=== PATIENT | female | born 1995 | race African-American/Black ===

== ENCOUNTER 2016-05-29 03:35 | Inpatient (IN) | payer MEDICAID ==
[2016-05-29] MEDS ORDERED: RINGERS SOLUTION,LACTATED 1,000 ML IV PRN ×2 (03:47→04:48)
[2016-05-29 04:04] LABS: APPEARANCE,URINE SLIGHTLY-CLOUDY; BILIRUBIN,URINE NEGATIVE (NEGATIVE); GLUCOSE, URINE NEGATIVE (NEGATIVE); KETONES,URINE NEGATIVE (NEGATIVE); LEUKOCYTE ESTERASE,URINE NEGATIVE (NEGATIVE); NITRITE,URINE NEGATIVE (NEGATIVE); PROTEIN,URINE NEGATIVE (NEGATIVE); URINE SPECIFIC GRAVITY 1.017
[2016-05-29 04:19] LABS: URINE BARBITURATES SCREEN NEGATIVE; URINE METHADONE SCREEN NEGATIVE; URINE PHENCYCLIDINE SCREEN NEGATIVE
[2016-05-29 04:28] LABS: ABSOLUTE EOSINOPHILS # (AUTO) 0.1 10^3/uL (0.0-0.6); ABSOLUTE LYMPHOCYTES (AUTO) 1.5 10^3/uL (0.5-4.7); ABSOLUTE MONOCYTES (AUTO) 0.8 10^3/uL (0.1-1.4); BASOPHILS % (AUTO) 0.5 % (0-2); EOSINOPHILS % (AUTO) 1.1 % (0-6); HEMATOCRIT 30.2 % (36.0-47.0); HEMOGLOBIN 10.2 g/dL (12.0-15.5); HGB HCT DIFFERENCE 0.4; LYMPHOCYTES % (AUTO) 17.6 % (13-45); MEAN CORPUSCULAR HEMOGLOBIN 27.2 pg (27.0-33.4); MEAN CORPUSCULAR HGB CONC 33.8 g/dL (32.0-36.0); MEAN CORPUSCULAR VOLUME 81 fl (80-97); MONOCYTES % (AUTO) 9.2 % (3-13); RED BLOOD COUNT 3.75 10^6/uL (3.72-5.28); RED CELL DISTRIBUTION WIDTH 14.8 % (11.5-14.0); SEGMENTED NEUTROPHILS % (AUTO) 71.6 % (42-78); WHITE BLOOD COUNT 8.4 10^3/uL (4.0-10.5)
--- NOTE | 2016-05-29 04:45 | L&D Flow Sheet ---
LD Flowsheet Datetime Report Generated by CPN: 05/29/2016 04:45 Datetime: 05/29/2016 04:15 Patient Care Procedures: Labs Drawn (Jenni Kossmann, RN) Datetime: 05/29/2016 04:10 Patient Care Procedures: Consents Signed (Jenni Kossmann, RN) Datetime: 05/29/2016 04:02 Pain Pain Scale: 4 (Yue Ring, RN) Pain Presence: Intermittent (Yue Ring, RN) Pain Type: Contraction (Yue Ring, RN) Pain Location: Abdomen (Yue Ring, RN) Pain Goal: 1 (Yue Ring, RN) Pain Relief Measures: Comfort Measures (Yue Ring, RN) Pain Coping: Talking Through Contractions; Breathing Through Contractions (Yue Ring, RN) Membrane Status: Ruptured (Yue Ring, RN) Membranes Ruptured Date/Time: 05/29/2016 03:15 (Yue Ring, RN) Membranes Rupture Method: Spontaneous (Yue Ring, RN) Amniotic Fluid Color: Clear (Yue Ring, RN) Amniotic Fluid Amount: Moderate (Yue Ring, RN) Vaginal Bleeding: None (Yue Ring, RN) Maternal Assessment Level of Consciousness: Fully Conscious (Yue Ring, RN) DTR's/Clonus: DTRs 2+; No Clonus (Yue Ring, RN) Headache: Denies (Yue Ring, RN) Breath Sounds, Left: Clear and Equal (Yue Ring, RN) Breath Sounds, Right: Clear and Equal (Yue Ring, RN) Nausea/Vomiting: Denies (Yue Ring, RN) RUQ Epigastric Pain: Denies (Yue Ring, RN) Teaching Instructional Method: Verbal; Patient Instructed; Family/Support Person Instructed; Verbalized Understanding (Yue Ochoa RN) Plan of Care: Plan of Care Discussed (Yue Ochoa RN) Unit Routine: [facility] to Room; [facility]; Bed; Handwashing; Monitoring; Safety/Fall Risk Prevention; Bathroom Privileges (Yue Ochoa, RN) Labor/Induction: Labor Stages (Yue Ring, RN) Datetime: 05/29/2016:57 Pain Pain Scale: 3 (Chana Prakash, RN) Pain Presence: Intermittent (Chana Prakash, RN) Pain Type: Contraction (Chana Prakash, RN) Pain Location: Abdomen (Chana Prakash, RN) Datetime: 05/29/2016 03:56 Vaginal Exam Dilatation (cm): 3.0 (Chana Prakash, RN) Effacement (%): 80 (Chana Prakash, RN) Station: -1 (Chana Prakash, RN) Exam by: K. Prakash, RN (Chana Prakash, RN) Vaginal Bleeding: None (Chana Prakash, RN) Cervix, Consistency: Soft (Chana Prakash, RN) Cervix, Position: Midposition (Chana Prakash, RN) Datetime: 05/29/2016 03:54 Vital Signs NBP Sys/Amada/Mean (mmHg): 94 (QS system process) : 54 (QS system process) : 69 (QS system process) Pulse: 92 (QS system process) Datetime: 05/29/2016 03:52 Patient Position/Activity: Right Lateral (Chana Randall RN) Teaching Instructional Method: Verbal; Patient Instructed; Family/Support Person Instructed (Chana Randall RN) Plan of Care: Plan of Care Discussed; Vaginal Delivery (Chana Randall RN) Unit Routine: [facility] to Room; [facility]; Bed; Visiting Policy; Waiting Areas; Security; Photography; Unit Personnel (Chana Randall RN) Labor/Induction: Labor Stages (Chana Randall RN)
--- NOTE | 2016-05-29 04:45 | L&D Current Admission ---
Current Admit Datetime Report Generated by CPN: 05/29/2016 04:45 ADMISSION INFORMATION Current Admit Date/Time: 05/29/2016 04:08 (05/29/2016 04:05:Chana Randall RN) Current Admit Date/Time: 05/29/2016 04:07 (05/29/2016 04:02:Chana Randall RN) Reason for Admission: Rupture of Membranes (05/29/2016 04:05:Yue Ochoa RN) Reason for Admission: Rupture of Membranes (05/29/2016 04:02:Chana Randall RN) Chief Complaint: Suspected Rupture of Membranes (05/29/2016 04:05:Chana Randall RN) Chief Complaint: Suspected Rupture of Membranes (05/29/2016 04:02:Yue Ochoa RN) Medications During : Ferrous Sulfate (Iron); Vitamin (05/29/2016 04:05:Chana Randall RN) Medications During : Ferrous Sulfate (Iron); Vitamin (05/29/2016 04:02:Chana Randall RN) EGA per Dates: 39.1 (05/29/2016 04:05:QS system process) EGA per Dates: 39.1 (05/29/2016 04:02:MOLINA system process) Method of Arrival: Wheelchair (05/29/2016 04:05:Yue Ochoa RN) Method of Arrival: Wheelchair (05/29/2016 04:02:Chana Randall RN) Admitted From: Home (05/29/2016 04:05:Yue Ochoa RN) Admitted From: Home (05/29/2016 04:02:Chana Randall RN) Reason for Induction: Not Applicable (05/29/2016 04:05:Yue Ochoa RN) Reason for Induction: Not Applicable (05/29/2016 04:02:Chana Randall RN) Records Available: Yes (05/29/2016 04:05:Yue Ochoa RN) Records Available: Yes (05/29/2016 04:02:Chana Randall RN) General Admission Information: Reviewed; Updated (05/29/2016 04:05:Yue Ochoa RN) General Admission Information: Reviewed; Confirmed (05/29/2016 04:02:Chana Randall RN) General Admission Reviewed By: Tracy Ochoa RN (05/29/2016 04:05:Yue Ochoa RN) General Admission Reviewed By: Stacie Randall RN (05/29/2016 04:02:Chana Randall RN) BELONGINGS/ADVANCED DIRECTIVES Other Belongings: See [facility] valuables form (05/29/2016 04:05:Yue Ochoa RN) Other Belongings: see paper belongings form (05/29/2016 04:02:Chana Randall RN) Disposition of Belongings: Kept with Patient (05/29/2016 04:05:Yue Ochoa RN) Advance Direct for Healthcare: No, and Wants No Information (05/29/2016 04:05:Yue Ochoa RN) Durable Power of Customer Care Voice Consultant: No (05/29/2016 04:05:Yue Ochoa RN) Living Will: No (05/29/2016 04:05:Yue Ochoa RN) Organ Donor: Yes (05/29/2016 04:05:Yue Ochoa RN) Pt Rights Information Given: Yes (05/29/2016 04:05:Yue Ochoa RN) Pt Understands Pt Rights: Yes (05/29/2016 04:05:Yue Ochoa RN) LEARNING ASSESSMENT Knowledge Level: Understands L_D Process; Understands Care Activities; Had Pre-Hospital Education; Understands Diagnosis (05/29/2016 04:05:Yue Ochoa RN) Barriers to Learning: Visual Deficit (05/29/2016 04:05:Yue Ochoa RN) Learning Readiness: Motivated (05/29/2016 04:05:Yue Ochoa RN) Learns Best By: 1 to 1 Instruction; Reading; Videos; Group Discussion; Demonstration (05/29/2016 04:05:Yue Ochoa RN) Learning Needs: Labor and Delivery Process; Pain Management; Symptoms to Report; Treatment Plan; Medication (05/29/2016 04:05:Yue Ochoa RN) Learning Assessment Comments: Needs glasses (05/29/2016 04:05:Yue Ochoa RN) DOMESTIC VIOLANCE SCREENING Dom Viol Threatened/Hurt: No (05/29/2016 04:05:Yue Ochoa RN) Hx of Abuse/Neglect past 2yrs: No (05/29/2016 04:05:Yue Ochoa RN) Feel Unsafe Going Home: No (05/29/2016 04:05:Yue Ochoa RN) Addt'l Observ Indicating Abuse: No (05/29/2016 04:05:Yue Ochoa RN) Reason Unable to Complete Screen: N/A, Screen Completed (05/29/2016 04:05:Yue Ochoa RN) Considered Personal Harm/Suicide: No (05/29/2016 04:05:Yue Ochoa RN) NUTRITIONAL/FUNCTIONAL SCREENING Problem with Appetite >5 Days: No (05/29/2016 04:05:Yue Ochoa RN) Chew/Swallow Difficulties: No (05/29/2016 04:05:Yue Ochoa RN) Inappropriate Wt Gain/Loss: No (05/29/2016 04:05:Yue Ochoa RN) Presence Skin Breakdown/Ulcer: No (05/29/2016 04:05:Yue Ochoa RN) Special Diet: No (05/29/2016 04:05:Yue Ochoa RN) Pt Requests Pillowcase Cleaner Visit: No (05/29/2016 04:05:Yue Ochoa RN) Hx of Any of the Following?: N/A (05/29/2016 04:05:Yue Ochoa RN) New Diagnosis of: N/A (05/29/2016 04:05:Yue Ochoa RN) Requires Assist w/Ambulation: No (05/29/2016 04:05:Yue Ochoa RN) Uses Assist Device to Ambulate: No (05/29/2016 04:05:Yue Ochoa RN) Pt Requires Help w/ADL's: No (05/29/2016 04:05:Yue Ochoa RN)
--- NOTE | 2016-05-29 04:46 | L&D Discharge Summary ---
OB Discharge Summary Datetime Report Generated by CPN: 05/29/2016 04:45 DISCHARGE DIAGNOSIS Number of Babies in Womb: 1 Parity: 0
--- NOTE | 2016-05-29 04:46 | L&D General Admission ---
General Admit Datetime Report Generated by CPN: 05/29/2016 04:45 INFORMATION Patient Age: 20 (04/27/2016 12:09:QS system process) EDC: 06/04/2016 00:00 (05/29/2016 03:32:Chana Randall RN) : 1 (05/29/2016 03:32:Yue Ring, RN) Para: 0 (05/29/2016 03:32:Yue Ring, RN) Term: 0 (05/29/2016 03:32:Yue Ring, RN) : 0 (05/29/2016 03:32:Yue Ring, RN) Spontaneous Abortions: 0 (05/29/2016 03:32:Yue Ring, RN) Induced Abortions: 0 (05/29/2016 03:32:Yue Ring, RN) Livin (05/29/2016 03:32:Yue Ring, RN) Cesareans: 0 (05/29/2016 03:32:Yue Ring, RN) VBACs: 0 (05/29/2016 03:32:Yue Ring, RN) Ectopic: 0 (05/29/2016 03:32:Yue Ochoa RN) Multiple Births: 0 (05/29/2016 03:32:Yue Ochoa RN) Baby, Number in Womb: 1 (05/29/2016 03:32:Yue Ochoa RN) CARE [facility] (05/29/2016 03:32:Chana Randall RN) Adequate Care: Yes (05/29/2016 03:32:Yue Ochoa RN) Height (in): 64 (05/29/2016 04:38:QS system process) Height (in): 64 (05/29/2016 04:37:QS system process) ALLERGIES Medication Allergy: No (05/29/2016 03:32:Yue Ochoa RN) Medication Allergies: pineapple (05/29/2016) (05/29/2016 04:38:QS system process) Medication Allergies: pineapple (05/17/2016) (05/17/2016 12:17:QS system process) Medication Allergies: pineapple (08/02/2015) (04/27/2016 12:09:QS system process) Latex Allergy: No Latex Allergies (05/29/2016 03:32:Yue Ochoa RN) Food Allergies: pineapple (05/29/2016 03:32:Jenni Diaz RN) COMMUNICATION Primary Language: British (05/29/2016 03:32:Yue Ochoa RN) Medical Tx Preferred Language: British (05/29/2016 03:32:Yue Ochoa RN) British Communication Ability: Speaks British; Reads British (05/29/2016 03:32:Jenni Diaz RN) Communication Barrier(s): None (05/29/2016 03:32:Jenni Diaz RN) DEMOGRAPHICS Address: [address] [place] [id number] (04/27/2016 12:09:QS system process) Zipcode: [address] (04/27/2016 12:09:QS system process) Home (04/27/2016 12:09:QS system process) Work (04/27/2016 12:09:QS system process) N: [phone] (04/27/2016 12:09:QS system process) Next of Kin Name: HAYES DIETRICH (04/27/2016 12:09:QS system process) Next of Kin (04/27/2016 12:09:QS system process) Next of Kin Relationship: OR (04/27/2016 12:09:QS system process) Date of : 1995 (04/27/2016 12:09:QS system process) Marital Status: Single (04/27/2016 12:09:QS system process) Sex: Female (04/27/2016 12:09:QS system process) Race: (04/27/2016 12:09:QS system process) Ethnicity: Non- or (04/27/2016 12:09:QS system process) Jew: None (04/27/2016 12:09:QS system process) DRUG AND ALCOHOL USE Alcohol: No (05/29/2016 03:32:Yue Ochoa RN) Cigarettes: Never Smoker. [id number] (05/29/2016 03:32:Yue Ochoa RN) Marijuana: No (05/29/2016 03:32:Yue Ochoa RN) Cocaine: No (05/29/2016 03:32:Yue Ochoa RN) Other Illicit Drugs: No (05/29/2016 03:32:Yue Ochoa RN) VACCINE HISTORY Influenza Vaccine: No (05/29/2016 03:32:Yue Ochoa RN) Pneumococcal Vaccine: No (05/29/2016 03:32:Yue Ochoa RN) Tetanus Vaccine: Yes (05/29/2016 03:32:Yue Ochoa RN) Tdap Vaccine: Yes (05/29/2016 03:32:Yue Ochoa RN) Tdap Date: 2015 (05/29/2016 03:32:Yue Ochoa RN) Hepatitis B Vaccine: Yes (05/29/2016 03:32:Yue Ochoa RN) Weight And Balance Control Agent: [facility] (05/29/2016 03:32:Yue Ochoa RN) Feeding Preference: Breast (05/29/2016 03:32:Yue Ochoa RN) Benefit of Breast Feed Discussed: Yes (05/29/2016 03:32:Yue Ochoa RN) Circumcision: Yes (05/29/2016 03:32:Yue Ochoa RN) Classes Attended: No (05/29/2016 03:32:Yue Ochoa RN) Tubal Ligation: No (05/29/2016 03:32:Yue Ochoa RN) Tubal Authorization Signed: N/A (05/29/2016 03:32:Yue Ochoa RN) Consent: N/A (05/29/2016 03:32:Yue Ochoa RN) Consent Signed: N/A (05/29/2016 03:32:Yue Ochoa RN) Pain Management Plans: Epidural (05/29/2016 03:32:Yue Ochoa RN) Plans for Labor and Delivery: None (05/29/2016 03:32:Yue Ochoa RN) Support Person: Vj (05/29/2016 03:32:Yue Ochoa RN) Support Person Relationship: Significant Other (05/29/2016 03:32:Yue Ochoa RN) Cultural/Spritual Practice: No (05/29/2016 03:32:Yue Ochoa RN) Spir/Cult Dietary Needs: No (05/29/2016 03:32:Yue Ochoa RN) LIVING SITUATION/DISCHARGE PLAN Living Arrangements: House (05/29/2016 03:32:Yue Ochoa RN) Adequate Access to:: Electric; Heat; Refrigeration; Plumbing/Running water; Phone; Transportation (05/29/2016 03:32:Yue Ochoa RN) WIC Program: No (05/29/2016 03:32:Yue Ochoa RN) Discharge Assessment Coordinator Person: Vj (05/29/2016 03:32:Yue Ochoa RN) Person to Help after Discharge: Vj (05/29/2016 03:32:Yue Ochoa RN) Currently Using Commun Resources: Yes (05/29/2016 03:32:Yue Ochoa RN) Specify Current Resource Used: Medicaid (05/29/2016 03:32:Yue Ochoa RN) Outside Agency/Classifier Tender: No (05/29/2016 03:32:Yue Ochoa RN) Car Seat for Discharge: Yes (05/29/2016 03:32:Yue Ochoa RN) Adoption Requested: No (05/29/2016 03:32:Yue Ochoa RN) Pt Contact w/infant Post : N/A (05/29/2016 03:32:Yue Ochoa RN) LABS Blood Type: AB Negative (05/29/2016 03:32:Marichuy Rios RN) Hemoglobin: 10.2 L (05/29/2016 04:14:QS system process) Hematocrit: 30.2 L (05/29/2016 04:14:QS system process) MCV: 81 (05/29/2016 04:14:QS system process) Group Beta Strep: negative (05/29/2016 03:32:Marichuy Rios RN) Gonorrhea: Negative (05/29/2016 03:32:Marichuy Rios RN) Chlamydia: Negative (05/29/2016 03:32:Marichuy Rios RN) RPR/VDRL: Nonreactive (05/29/2016 03:32:Marichuy Rios RN) HIV Results: negative (Annotations: Data stored by [facility] on behalf of user) (05/29/2016 03:32:Jenni Diaz RN) Hepatitis B: Negative (05/29/2016 03:32:Jenni Diaz RN) Rubella: Immune (05/29/2016 03:32:Jenni Diaz RN) OB/PREVIOUS HISTORY Current Procedures: Ultrasound; NST (05/29/2016 03:32:Jenni Diaz RN) History of Previous : No (05/29/2016 03:32:Yue Ochoa RN) History of Gestational Diabetes: No (05/29/2016 03:32:Yue Ocoha RN) History of PIH: No (05/29/2016 03:32:Yue Ochoa RN) History of Incompetent Cervix: No (05/29/2016 03:32:Yue Ochoa RN) History of Placenta Previa/Abrup: No (05/29/2016 03:32:Yue Ochoa RN) History of Macrosomia: No (05/29/2016 03:32:Yue Ochoa RN) History of IUGR: No (05/29/2016 03:32:Yue Ochoa RN) History of Hemorrhage: No (05/29/2016 03:32:Yue Ochoa RN) History of Loss/Stillborn: No (05/29/2016 03:32:Yue Ochoa RN) History of : No (05/29/2016 03:32:Yue Ochoa RN) History of D (Rh) Sensitization: No (05/29/2016 03:32:Yue Ochoa RN) History Recurrent Loss/Stillborn: No (05/29/2016 03:32:Yue Ochoa RN) History Depression/PP Depression: No (05/29/2016 03:32:Yue Ochoa RN) History of Uterine Anomaly/PRAFUL: No (05/29/2016 03:32:Yue Ochoa RN) History of Infertility: No (05/29/2016 03:32:Yue Ochoa RN) History of ART Treatment: No (05/29/2016 03:32:Yue Ochoa RN) History of PRAFUL: No (05/29/2016 03:32:Yue Ochoa RN) Comments Obstetrical History: G1: current (05/29/2016 03:32:Yue Ochoa RN) MEDICAL HISTORY Med Hx Diabetes: No (05/29/2016 03:32:Yue Ochoa RN) Med Hx Hypertension: No (05/29/2016 03:32:Yue Ochoa RN) Med Hx Heart Disease: No (05/29/2016 03:32:Yue Ochoa RN) Med Hx Autoimmune Disorder: No (05/29/2016 03:32:Yue Ochoa RN) Med Hx Kidney Disease/UTI: No (05/29/2016 03:32:Yue Ochoa RN) Med Hx Neurologic/Epilepsy: No (05/29/2016 03:32:Yue Ochoa RN) Med Hx Psychiatric Disorders: No (05/29/2016 03:32:Yue cOhoa RN) Med Hx Hepatitis/Liver Disease: No (05/29/2016 03:32:Yue Ochoa RN) Med Hx Varicosities/Phlebitis: No (05/29/2016 03:32:Yue Ochoa RN) Med Hx Thyroid Dysfunction: No (05/29/2016 03:32:Yue Ochoa RN) Med Hx Trauma/Violence: No (05/29/2016 03:32:Yue Ochoa RN) Med Hx Blood Transfusion: No (05/29/2016 03:32:Yue Ochoa RN) Med Hx Pulmonary (Asthma,TB): No (05/29/2016 03:32:Yue Ochoa RN) Med Hx Breast: No (05/29/2016 03:32:Yue Ochoa RN) 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 (05/29/2016 03:32:Yue Ochoa RN) Med Hx Hospitalization/Surgery: No (05/29/2016 03:32:Yue Ochoa RN) Med Hx Anesthetic Complications: No (05/29/2016 03:32:Yue Ochoa RN) Med Hx Abnormal Pap Smear: Yes (05/29/2016 03:32:Yue Ochoa RN) Other Medical Diseases: No (05/29/2016 03:32:Yue Ochoa RN) Med Hx Significant Family Hx: No (05/29/2016 03:32:Yue Ochoa RN) INFECTIOUS HISTORY Inf Hx Gonorrhea: No (05/29/2016 03:32:Yue Ochoa RN) Inf Hx Chlamydia: No (05/29/2016 03:32:Yue Ochoa RN) Inf Hx Syphilis: No (05/29/2016 03:32:Yue Ochoa RN) Inf Hx HIV/AIDS: No (05/29/2016 03:32:Yue Ochoa RN) Inf Hx Human Papilloma Virus: No (05/29/2016 03:32:Yue Ochoa RN) Inf Hx Pt/Partner Genital Herpes: No (05/29/2016 03:32:Yue Ochoa RN) Inf Hx Tuberculosis/Exposure: No (05/29/2016 03:32:Yue Ochoa RN) Inf Hx Hepatitis B,C: No (05/29/2016 03:32:Yue Ochoa RN) Inf Hx Rash or Viral Illness: No (05/29/2016 03:32:Yue Ochoa RN) Details of Infectious Hx: 2015 (05/29/2016 03:32:Yue Ochoa RN) GENETIC HISTORY Gen Hx Age >=35 at [place]: Yes (05/29/2016 03:32:Yue Ochoa RN) Gen Hx Thalassemia: No (05/29/2016 03:32:Yue Ochoa RN) Gen Hx Congenital Heart Defect: No (05/29/2016 03:32:Yue Ochoa RN) Gen Hx Neural Tube Defect: No (05/29/2016 03:32:Yue Ochoa RN) Gen Hx Down's Syndrome: No (05/29/2016 03:32:Yue Ochoa RN) Gen Hx Yovany-Sachs: No (05/29/2016 03:32:Yue Ochoa RN) Gen Hx Jaspreet: No (05/29/2016 03:32:Yue Ochoa RN) Gen Hx Familial Dysautonomia: No (05/29/2016 03:32:Yue Ochoa RN) Gen Hx Sickle Cell Disease/Trait: No (05/29/2016 03:32:Yue Ochoa RN) Gen Hx Hemophilia/Blood Disorder: No (05/29/2016 03:32:Yue Ochoa RN) Gen Hx Muscular Dystrophy: No (05/29/2016 03:32:Yue Ochoa RN) Gen Hx Cystic Fibrosis: No (05/29/2016 03:32:Yue Ochoa RN) Gen Hx Huntingtons Chorea: No (05/29/2016 03:32:Yue Ochoa RN) Gen Hx Mental Retardation/Autism: No (05/29/2016 03:32:Yue Ochoa RN) Gen Hx Tested for Fragile X: No (05/29/2016 03:32:Yue Ochoa RN) Gen Hx Other Inher/Chromosomal: No (05/29/2016 03:32:Yue Ochoa RN) Gen Hx Maternal Metabolic DO: No (05/29/2016 03:32:Yue Ochoa RN) Gen Hx Pt Father or FOB Defect: No (05/29/2016 03:32:Yue Ochoa RN) Gen Hx Other Genetic History: No (05/29/2016 03:32:Yue Ochoa RN) Gen Hx Drugs/Meds since LMP: Yes (05/29/2016 03:32:Yue Ochoa RN) Gen Hx Medications: PNV, iron, cephalexin (05/29/2016 03:32:Yue Ochoa RN) Details of Genetic History: FOB is 36 years old (05/29/2016 03:32:Yue Ochoa RN)
--- NOTE | 2016-05-29 04:46 | L&D Admission Assessment ---
LD ADM ASMT Datetime Report Generated by CPN: 05/29/2016 04:45 PATIENT ASSESSMENT Assessment Type: Triage (05/29/2016 04:02:Yue Ring, RN) WEIGHT Weight (lb): 163 (05/29/2016 04:38:QS system process) Weight (lb): 163 (05/29/2016 04:37:QS system process) Weight (kg): 74.1 (05/29/2016 04:38:QS system process) Weight (kg): 74.1 (05/29/2016 04:37:QS system process) BMI: 28.0 (05/29/2016 04:38:QS system process) PAIN Pain Scale: 4 (05/29/2016 04:02:Yue Ochoa RN) Pain Scale: 3 (05/29/2016 03:57:Chana Randall RN) Pain Presence: Intermittent (05/29/2016 04:02:Yue Ochoa RN) Pain Presence: Intermittent (05/29/2016 03:57:Chana Randall RN) Pain Type: Contraction (05/29/2016 04:02:Yue Ochoa RN) Pain Type: Contraction (05/29/2016 03:57:Chana Randall RN) Pain Location: Abdomen (05/29/2016 04:02:Yue Ochoa RN) Pain Location: Abdomen (05/29/2016 03:57:Chana Randall RN) Pain Goal: 1 (05/29/2016 04:02:Yue Ochoa RN) Pain Related to Contraction: Yes (05/29/2016 04:02:Yue Ochoa RN) VAGINAL EXAM Dilatation (cm): 3.0 (05/29/2016 03:56:Chana Randall RN) Effacement (%): 80 (05/29/2016 03:56:Chana Randall RN) Station: -1 (05/29/2016 03:56:Chana Randall RN) Membranes Status: Ruptured (05/29/2016 04:02:Yue Ring RN) Membranes Rupture D/ (05/29/2016 04:02:Yue Ochoa RN) ROM Method: Spontaneous (05/29/2016 04:02:Yue Ring, RN) Amniotic Fluid Color: Clear (05/29/2016 04:02:Yue Ochoa RN) Amniotic Fluid Amount: Moderate (05/29/2016 04:02:Yue Ring RN) NEURO Level of Consciousness: Fully Conscious (05/29/2016 04:02:Yue Ochoa RN) DTR's/Clonus: DTRs 2+; No Clonus (05/29/2016 04:02:Yue Ring RN) Headache: Denies (05/29/2016 04:02:Yue Ring RN) Dizziness: No (05/29/2016 04:02:Yue Ring RN) Blurred Vision: No (05/29/2016 04:02:Yue Ring RN) Extremity Numbness/Tingling : None (05/29/2016 04:02:Yue Ring RN) Extremity Movement: Full Range of Motion (05/29/2016 04:02:Yue Ring RN) CARDIOVASCULAR Heart Rhythm: Regular (05/29/2016 04:02:Yue Ring, RN) Nailbeds: Bowlegs (05/29/2016 04:02:Yue Ring, RN) Capillary Refill: Less than 3 Seconds (05/29/2016 04:02:Yue Ring, RN) Lower Extremities Edema: None (05/29/2016 04:02:Yue Ring, RN) Lower Extremities Edema Degree: None (05/29/2016 04:02:Yue Ring, RN) Upper Extremities Edema: None (05/29/2016 04:02:Yue Ring, RN) Upper Extremities Edema Degree: None (05/29/2016 04:02:Yue Ring, RN) Facial Edema: None (05/29/2016 04:02:Yue Ring, RN) Olivia's Sign Left Leg: Negative (05/29/2016 04:02:Yue Ring, RN) Olivia's Sign Right Leg: Negative (05/29/2016 04:02:Yue Ring, RN) DVT RISK ASSESSMENT DVT Risk Age: Age less than 41 years (05/29/2016 04:02:Yue Ring, RN) DVT Risk BMI: BMI<31 (05/29/2016 04:02:Yue Ring, RN) DVT Risk Surgery: None Applicable (05/29/2016 04:02:Yue Ring, RN) DVT Risk Other: Women Only- or (<1 month) (05/29/2016 04:02:Yue Ring, RN) DVT Risk Total: 1 (05/29/2016 04:02:QS system process) DVT Risk Text: Low Risk (<10%) No specific measures, early ambulation (05/29/2016 04:02:QS system process) RESPIRATORY Respiratory Effort: Unlabored; Regular Rhythm; Equal Expansion (05/29/2016 04:02:Yue Ring, RN) Breath Sounds, Left: Clear and Equal (05/29/2016 04:02:Yue Ring, RN) Breath Sounds, Right: Clear and Equal (05/29/2016 04:02:Yue Ring, RN) Cough Productivity: None (05/29/2016 04:02:Yue Ring, RN) GASTROINTESTINAL Nausea/Vomiting: Denies (05/29/2016 04:02:Yue Ring, RN) Bowel Sounds: Normoactive; All Quadrants (05/29/2016 04:02:Yue Ring, RN) RUQ Epigastric Pain: Denies (05/29/2016 04:02:Yue Ochoa RN) Bowel Patterns: Soft, Formed Stool (05/29/2016 04:02:Yue Ring RN) Hemorrhoids: None (05/29/2016 04:02:Yue Ochoa RN) Diet Type: Regular diet (05/29/2016 04:02:Yue Ochoa RN) Last Meal: 05/29/2016 02:15 (05/29/2016 04:02:Yue Ring, RN) GENITOURINARY Bladder: Nondistended (05/29/2016 04:02:Yue Ochoa, RN) Frequency of Urination: No (05/29/2016 04:02:Yue Ring, RN) Urination Burning: No (05/29/2016 04:02:Yue Ochoa, RN) CVA Tenderness: No (05/29/2016 04:02:Yue Ring, RN) Vaginal Bleeding: None (05/29/2016 04:02:Yue Ring, RN) Vaginal Discharge Amount: Moderate (05/29/2016 04:02:Yue Ring, RN) Vaginal Discharge Color: Clear (05/29/2016 04:02:Yue Ring, RN) Vaginal Discharge Odor: Non-Odorous (05/29/2016 04:02:Yue Ring, RN) Vaginal Discharge Character: Watery (05/29/2016 04:02:Yue Ring, RN) INTEGUMENTARY Skin Color: Normal for Race (05/29/2016 04:02:Yue Ochoa RN) Skin Temperature: Cool (05/29/2016 04:02:Yue Ochoa RN) Skin Moisture: Dry (05/29/2016 04:02:Yue Ochoa RN) Surgical Scars: denies (05/29/2016 04:02:Yue Ochoa RN) Body Piercings/Tattoos: nipples, ears, tongue (05/29/2016 04:02:Yue Ochoa RN) TORRI SKIN ASSESSMENT Torri Scale Sensory Perception: No Impairment- Responds to verbal commands. Has no sensory deficit which would limit ability to feel or voice pain or discomfort (05/29/2016 04:02:uYe Ochoa RN) Torri Scale Moisture: Rarely Moist- Skin is usually dry. Linen only requires changing at routine intervals (05/29/2016 04:02:Yue Ochoa RN) Torri Scale Activity: Walks Frequently- Walks outside the room at least twice a day and inside room at least every 2 hours during the day. (05/29/2016 04:02:Yue Ochoa RN) Torri Scale Mobility: No Limitations- Makes major and frequent changes in position without assistance (05/29/2016 04:02:Yue Ochoa RN) Torri Scale Nutrition: Excellent- Eats most of every meal. Never refuses a meal. Usually eats a total of 4 or more servings of meat and dairy products. Occasionally eats between meals. Does not require supplementation (05/29/2016 04:02:Yue Ochoa RN) Torri Scale Friction and Shear: No Apparent Problem- Moves in bed and in chair independently and has sufficient muscle strength to lift up completely during move. Maintains good position in bed or chair at all times (05/29/2016 04:02:Yue Ochoa RN) Torri Scale Total: 23 (05/29/2016 04:02:QS system process) Torri Scale Risk: No Risk of Pressure Ulcer Noted at this Time (05/29/2016 04:02:QS system process) SUPPORT Family Support: Significant Other supportive, at bedside frequently; Family supportive (05/29/2016 04:02:Yue Ochoa RN) Emotional State: Calm/Relaxed (05/29/2016 04:02:Yue Ochoa RN) SAFETY Call Lewis Within Reach: Yes (05/29/2016 04:02:Yue Ochoa RN) Side Rails Up: Yes (05/29/2016 04:02:Yue Ochoa RN) Bed Wheels Locked: Yes (05/29/2016 04:02:Yue Ochoa RN) Arm Bands Present: Yes (05/29/2016 04:02:Yue Ochoa RN) Isolation: [place] (05/29/2016 04:02:Yue Ochoa RN) FALL SCREEN Fall Risk History of Falling: (0) No (05/29/2016 04:02:Yue Ochoa RN) Fall Risk Secondary Diagnosis: (0) No (05/29/2016 04:02:Yue Ochoa RN) Fall Risk Ambulatory Aid: (0) None/Bedrest/Wheelchair/Nurse Assist (05/29/2016 04:02:Yue Ochoa RN) Fall Risk IV Therapy: (0) No (05/29/2016 04:02:Yue Ochoa RN) Fall Risk Gait: (0) Normal/Bedrest/Immobile (05/29/2016 04:02:Yue Ochoa RN) Fall Risk Mental Status: (0) Oriented to Own Ability (05/29/2016 04:02:Yue Ochoa RN) Fall Risk Score: 0 (05/29/2016 04:02:QS system process) Fall Risk Score Definition: No Risk: No action required (05/29/2016 04:02:QS system process) RECENT TRAVEL/INFECTIOUS DISEASE Recent Exp Communicable Disease: No (05/29/2016 04:02:Yue Ochoa RN) Cough or Fever: No (05/29/2016 04:02:Yue Ochoa RN) Foreign Travel Past 10 Days: No (05/29/2016 04:02:Yue Ochoa RN) Open Wounds or Sores: Yes (Annotations: Stitches in middle finger on left hand) (05/29/2016 04:02:Yue Ochoa RN) Prior Antibiotic Resistance Tx: No (05/29/2016 04:02:Yue Ochoa RN) Cultures Obtained: Not Applicable (05/29/2016 04:02:Yue Ochoa RN) Isolation Initiated: No (05/29/2016 04:02:Yue Ochoa RN) Pt/Family Education: Handwashing Hygiene (05/29/2016 04:02:Yue Ochoa RN)
[2016-05-29] MEDS ORDERED: RINGERS SOLUTION,LACTATED 300 ML IV ONE (04:48)
[2016-05-29] MEDS ORDERED: OXYTOCIN/NORMAL SALINE 1,000 ML IV PRN ×2 (04:48→06:44)
[2016-05-29] MEDS ORDERED: FENTANYL CITRATE INJ/PF 100 MCG/2 ML AMPUL ONE (05:36)
[2016-05-29] MEDS ORDERED: PHENYLEPHRINE HCL INJ/PF 10 MG/1 ML SDV ONE (05:36)
[2016-05-29] MEDS ORDERED: FENTANYL/BUPIVACAINE/NS/PF 0 MCG/0 ML RTUINJ EPI ONE (05:36)
[2016-05-29] MEDS ORDERED: EPHEDRINE SULFATE INJ 50 MG/1 ML AMPULE ONE (05:36)
[2016-05-29] MEDS ORDERED: BUPIVACAINE HCL 0.25 % INJ/PF (2.5 MG/1 ML) 30 ML VIAL ONE (05:36)
[2016-05-29] MEDS ORDERED: OXYTOCIN/NORMAL SALINE 20 UNIT/1,000 ML RTUINJ ONE (05:42)
[2016-05-29] MEDS ORDERED: LIDOCAINE 1% INJ-PF (10 MG/ML) 30 ML SDV ONE (05:42)
[2016-05-29] MEDS ORDERED: MISOPROSTOL 0.2 MG TABLET ONE (05:42)
--- NOTE | 2016-05-29 06:14 | L&D General Admission ---
General Admit Datetime Report Generated by CPN: 05/29/2016 06:00 INFORMATION Patient Age: 20 (04/27/2016 12:09:QS system process) EDC: 06/04/2016 00:00 (05/29/2016 03:32:Chana Randall RN) : 1 (05/29/2016 03:32:Yue Ring, RN) Para: 0 (05/29/2016 03:32:Yue Ring, RN) Term: 0 (05/29/2016 03:32:Yue Ring, RN) : 0 (05/29/2016 03:32:Yue Ring, RN) Spontaneous Abortions: 0 (05/29/2016 03:32:Yue Ring, RN) Induced Abortions: 0 (05/29/2016 03:32:Yue Ring, RN) Livin (05/29/2016 03:32:Yue Ring, RN) Cesareans: 0 (05/29/2016 03:32:Yue Ring, RN) VBACs: 0 (05/29/2016 03:32:Yue Ring, RN) Ectopic: 0 (05/29/2016 03:32:Yue Ochoa RN) Multiple Births: 0 (05/29/2016 03:32:Yue Ochoa RN) Baby, Number in Womb: 1 (05/29/2016 03:32:Yue Ochoa RN) CARE [facility] (05/29/2016 03:32:Chana Randall RN) Adequate Care: Yes (05/29/2016 03:32:Yue Ochoa RN) Height (in): 64 (05/29/2016 04:38:QS system process) ALLERGIES Medication Allergy: No (05/29/2016 03:32:Yue Ochoa RN) Medication Allergies: pineapple (05/29/2016) (05/29/2016 04:38:QS system process) Latex Allergy: No Latex Allergies (05/29/2016 03:32:Yue Ochoa RN) Food Allergies: pineapple (05/29/2016 03:32:Jenni Diaz RN) COMMUNICATION Primary Language: Tajik (05/29/2016 03:32:Yue Ochoa RN) Medical Tx Preferred Language: Tajik (05/29/2016 03:32:Yue Ochoa RN) Tajik Communication Ability: Speaks Tajik; Reads Tajik (05/29/2016 03:32:Jenni Diaz RN) Communication Barrier(s): None (05/29/2016 03:32:Jenni Diaz RN) DEMOGRAPHICS Address: [address] [place] [id number] (04/27/2016 12:09:QS system process) Zipcode: [address] (04/27/2016 12:09:QS system process) Home (04/27/2016 12:09:QS system process) Work (04/27/2016 12:09:QS system process) SSN: [id number] (04/27/2016 12:09:QS system process) Next of Kin Name: HAYES DIETRICH (04/27/2016 12:09:QS system process) Next of Kin (04/27/2016 12:09:QS system process) Next of Kin Relationship: OR (04/27/2016 12:09:QS system process) Date of : 1995 (04/27/2016 12:09:QS system process) Marital Status: Single (04/27/2016 12:09:QS system process) Sex: Female (04/27/2016 12:09:QS system process) Race: (04/27/2016 12:09:QS system process) Ethnicity: Non- or (04/27/2016 12:09:QS system process) Baptism: None (04/27/2016 12:09:QS system process) DRUG AND ALCOHOL USE Alcohol: No (05/29/2016 03:32:Yue Ring, RN) Cigarettes: Never Smoker. 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 Sound Mixer: [facility] (05/29/2016 03:32:Yue Ochoa RN) Feeding Preference: Breast (05/29/2016 03:32:Yue Ochoa RN) Benefit of Breast Feed Discussed: Yes (05/29/2016 03:32:Yue Ochoa RN) Circumcision: Yes (05/29/2016 03:32:Yue Ochoa RN) Classes Attended: No (05/29/2016 03:32:Yue Ochoa RN) Tubal Ligation: No (05/29/2016 03:32:Yue Ochoa RN) Tubal Authorization Signed: N/A (05/29/2016 03:32:Yue Ochoa RN) Consent: N/A (05/29/2016 03:32:Yue Ochoa RN) Consent Signed: N/A (05/29/2016 03:32:Yue Ochoa RN) Pain Management Plans: Epidural (05/29/2016 03:32:Yue Ochoa RN) Plans for Labor and Delivery: None (05/29/2016 03:32:Yue Ochoa RN) Support Person: Vj (05/29/2016 03:32:Yue Ochoa RN) Support Person Relationship: Significant Other (05/29/2016 03:32:Yue Ochoa RN) Cultural/Spritual Practice: No (05/29/2016 03:32:Yue Ochoa RN) Spir/Cult Dietary Needs: No (05/29/2016 03:32:Yue Ochoa RN) LIVING SITUATION/DISCHARGE PLAN Living Arrangements: House (05/29/2016 03:32:Yue Ochoa RN) Adequate Access to:: Electric; Heat; Refrigeration; Plumbing/Running water; Phone; Transportation (05/29/2016 03:32:Yue Ochoa RN) WIC Program: No (05/29/2016 03:32:Yue Ochoa RN) Discharge Postulant Person: Vj (05/29/2016 03:32:Yue Ochoa RN) Person to Help after Discharge: Vj (05/29/2016 03:32:Yue Ochoa RN) Currently Using Commun Resources: Yes (05/29/2016 03:32:Yue Ochoa RN) Specify Current Resource Used: Medicaid (05/29/2016 03:32:Yue Ochoa RN) Outside Agency/Furniture Builder: No (05/29/2016 03:32:Yue Ochoa RN) Car Seat for Discharge: Yes (05/29/2016 03:32:Yue Ochoa RN) Adoption Requested: No (05/29/2016 03:32:Yue Ochoa RN) Pt Contact w/infant Post : N/A (05/29/2016 03:32:Yue Ochoa RN) LABS Blood Type: AB Negative (05/29/2016 03:32:Marichuy Rios RN) Hemoglobin: 10.2 L (05/29/2016 04:14:QS system process) Hematocrit: 30.2 L (05/29/2016 04:14:QS system process) MCV: 81 (05/29/2016 04:14:QS system process) Group Beta Strep: negative (05/29/2016 03:32:Marichuy Rios RN) Gonorrhea: Negative (05/29/2016 03:32:Marichuy Rios RN) Chlamydia: Negative (05/29/2016 03:32:Marcihuy Rios RN) RPR/VDRL: Nonreactive (05/29/2016 03:32:Marichuy Rios RN) HIV Results: negative (Annotations: Data stored by N on behalf of user) (05/29/2016 03:32:Jenni Diaz RN) Hepatitis B: Negative (05/29/2016 03:32:Jenni Diaz RN) Rubella: Immune (05/29/2016 03:32:Jenni Diaz RN) OB/PREVIOUS HISTORY Current Procedures: Ultrasound; NST (05/29/2016 03:32:Jenni Diaz RN) History of Previous : No (05/29/2016 03:32:Yue Ochoa RN) History of Gestational Diabetes: No (05/29/2016 03:32:Yue Ochoa RN) History of PIH: No (05/29/2016 03:32:Yue Ochoa RN) History of Incompetent Cervix: No (05/29/2016 03:32:Yue Ochoa RN) History of Placenta Previa/Abrup: No (05/29/2016 03:32:Yue Ochoa RN) History of Macrosomia: No (05/29/2016 03:32:Yue Ochoa RN) History of IUGR: No (05/29/2016 03:32:Yue Ochoa RN) History of Hemorrhage: No (05/29/2016 03:32:Yue Ochoa RN) History of Loss/Stillborn: No (05/29/2016 03:32:Yue Ochoa RN) History of : No (05/29/2016 03:32:Yue Ochoa RN) History of D (Rh) Sensitization: No (05/29/2016 03:32:Yue Ochoa RN) History Recurrent Loss/Stillborn: No (05/29/2016 03:32:Yue Ochoa RN) History Depression/PP Depression: No (05/29/2016 03:32:Yue Ochoa RN) History of Uterine Anomaly/PRAFUL: No (05/29/2016 03:32:Yue Ochoa RN) History of Infertility: No (05/29/2016 03:32:Yue Ochoa RN) History of ART Treatment: No (05/29/2016 03:32:Yue Ochoa RN) History of PRAFUL: No (05/29/2016 03:32:Yue Ochoa RN) Comments Obstetrical History: G1: current (05/29/2016 03:32:Yue Ochoa RN) MEDICAL HISTORY Med Hx Diabetes: No (05/29/2016 03:32:Yue Ochoa RN) Med Hx Hypertension: No (05/29/2016 03:32:Yue Ochoa RN) Med Hx Heart Disease: No (05/29/2016 03:32:Yue Ochoa RN) Med Hx Autoimmune Disorder: No (05/29/2016 03:32:Yue Ochoa RN) Med Hx Kidney Disease/UTI: No (05/29/2016 03:32:Yue Ochoa RN) Med Hx Neurologic/Epilepsy: No (05/29/2016 03:32:Yue Ochoa RN) Med Hx Psychiatric Disorders: No (05/29/2016 03:32:Yue Ochoa RN) Med Hx Hepatitis/Liver Disease: No (05/29/2016 03:32:Yue Ochoa RN) Med Hx Varicosities/Phlebitis: No (05/29/2016 03:32:Yue Ochoa RN) Med Hx Thyroid Dysfunction: No (05/29/2016 03:32:Yue Ochoa RN) Med Hx Trauma/Violence: No (05/29/2016 03:32:Yue Ochoa RN) Med Hx Blood Transfusion: No (05/29/2016 03:32:Yue Ochoa RN) Med Hx Pulmonary (Asthma,TB): No (05/29/2016 03:32:Yue Ochoa RN) Med Hx Breast: No (05/29/2016 03:32:Yue Ochoa RN) Med Hx MACHINE CELL TUBER Surgery: No (05/29/2016 03:32:Yue Ochoa RN) Med Hx Hospitalization/Surgery: No (05/29/2016 03:32:Yue Ochoa RN) Med Hx Anesthetic Complications: No (05/29/2016 03:32:Yue Ochoa RN) Med Hx Abnormal Pap Smear: Yes (05/29/2016 03:32:Yue Ochoa RN) Other Medical Diseases: No (05/29/2016 03:32:Yue Ochoa RN) Med Hx Significant Family Hx: No (05/29/2016 03:32:Yue Ochoa RN) INFECTIOUS HISTORY Inf Hx Gonorrhea: Yes (05/29/2016 03:32:Jenni Diaz RN) Inf Hx Chlamydia: No (05/29/2016 03:32:Yue Ochoa RN) Inf Hx Syphilis: No (05/29/2016 03:32:Yue Ochoa RN) Inf Hx HIV/AIDS: No (05/29/2016 03:32:Yue Ochoa RN) Inf Hx Human Papilloma Virus: No (05/29/2016 03:32:Yue Ochoa RN) Inf Hx Pt/Partner Genital Herpes: No (05/29/2016 03:32:Yue Ochoa RN) Inf Hx Tuberculosis/Exposure: No (05/29/2016 03:32:Yue Ochoa RN) Inf Hx Hepatitis B,C: No (05/29/2016 03:32:Yue Ochoa RN) Inf Hx Rash or Viral Illness: No (05/29/2016 03:32:Yue Ochoa RN) Details of Infectious Hx: 2015 (05/29/2016 03:32:Yue Ochoa RN) GENETIC HISTORY Gen Hx Age >=35 at TEX: Yes (05/29/2016 03:32:Yue Ochoa RN) Gen Hx Thalassemia: No (05/29/2016 03:32:Yue Ochoa RN) Gen Hx Congenital Heart Defect: No (05/29/2016 03:32:Yue Ochoa RN) Gen Hx Neural Tube Defect: No (05/29/2016 03:32:Yue Ochoa RN) Gen Hx Down's Syndrome: No (05/29/2016 03:32:Yue Ochoa RN) Gen Hx Yovany-Sachs: No (05/29/2016 03:32:Yue Ochoa RN) Gen Hx Jaspreet: No (05/29/2016 03:32:Yue Ochoa RN) Gen Hx Familial Dysautonomia: No (05/29/2016 03:32:Yue Ochoa RN) Gen Hx Sickle Cell Disease/Trait: No (05/29/2016 03:32:Yue Ochoa RN) Gen Hx Hemophilia/Blood Disorder: No (05/29/2016 03:32:Yue Ochoa RN) Gen Hx Muscular Dystrophy: No (05/29/2016 03:32:Yue Ochoa RN) Gen Hx Cystic Fibrosis: No (05/29/2016 03:32:Yue Ochoa RN) Gen Hx Huntingtons Chorea: No (05/29/2016 03:32:Yue Ochoa RN) Gen Hx Mental Retardation/Autism: No (05/29/2016 03:32:Yue Ochoa RN) Gen Hx Tested for Fragile X: No (05/29/2016 03:32:Yue Ochoa RN) Gen Hx Other Inher/Chromosomal: No (05/29/2016 03:32:Yue Ochoa RN) Gen Hx Maternal Metabolic DO: No (05/29/2016 03:32:Yue Ochoa RN) Gen Hx Pt Father or FOB Defect: No (05/29/2016 03:32:Yue Ochoa RN) Gen Hx Other Genetic History: No (05/29/2016 03:32:Yue Ochoa RN) Gen Hx Drugs/Meds since LMP: Yes (05/29/2016 03:32:Yue Ochoa RN) Gen Hx Medications: PNV, iron, cephalexin (05/29/2016 03:32:Yue Ochoa RN) Details of Genetic History: FOB is 36 years old (05/29/2016 03:32:Yue Ochoa RN)
[2016-05-29] MEDS ORDERED: MEASLES,MUMPS&RUBELLA VACC/PF 0.5 ML VIAL SUBCUT PRN (06:44)
[2016-05-29] MEDS ORDERED: DIBUCAINE 1% OINTMENT 28 GM TP PRN (06:44)
[2016-05-29] MEDS ORDERED: ZOLPIDEM TARTRATE 5 MG TABLET PO PRN (06:44)
[2016-05-29] MEDS ORDERED: DIPH/PERTUSS(ACELL)/TETANUS VAC/PF 0.5 ML SYR (>=10YO) IM PRN (06:44)
[2016-05-29] MEDS ORDERED: ACETAMINOPHEN WITH CODEINE #3 TABLET PO PRN ×2 (06:44)
[2016-05-29] MEDS ORDERED: BENZOCAINE/MENTHOL AEROSOL SPRAY 56 ML TOP PRN (06:44)
[2016-05-29] MEDS ORDERED: ACETAMINOPHEN WITH CODEINE #3 TABLET ONE (06:54)
[2016-05-29] MEDS ORDERED: IBUPROFEN 800 MG TABLET ONE (06:54)
--- NOTE | 2016-05-29 08:00 | L&D Flow Sheet ---
LD Flowsheet Datetime Report Generated by CPN: 05/29/2016 08:00 Datetime: 05/29/2016 07:30 Vital Signs Stage of : Recovery (Deepa Daphney, RN) Datetime: 05/29/2016 07:25 Vital Signs Stage of : Recovery (Deepa Daphney, RN) NBP Sys/Amada/Mean (mmHg): 108 (QS system process) : 59 (QS system process) : 76 (QS system process) Pulse: 60 (QS system process) Respirations: 12 (Deepa Pickaway, RN) Datetime: 05/29/2016 07:19 Vital Signs Stage of : Recovery (Deepa Pickaway, ) Temperature (F): 98.2 (Deepa Daphney, ) Temperature (C): 36.8 (QS system process) Temperature Route: Oral (Deepa Pickaway, ) Pain Pain Scale: 2 (Deepa Pickaway, ) [facility]: [facility] Pain Type: Cramping ([facility] ) Pain Location: Abdomen (Annotations: with fundal massage) ([facility], ) Pain Goal: 1 ([facility], ) Pain Relief Measures: Comfort Measures ([facility] Datetime: 05/29/2016 07:18 Teaching Instructional Method: Verbal; Patient Instructed; Family/Support Person Instructed; Verbalized Understanding (Deepa Shelley RN) Plan of Care: Plan of Care Discussed (Deepa Shelley RN) Unit Routine: Call [place]; Bed (eDepa Shelley, FATOU) Datetime: 05/29/2016 07:14 Maternal Assessment Level of Consciousness: Fully Conscious (Deepa Shelley, FATOU) DTR's/Clonus: DTRs 2+; No Clonus (Deepa Shelley, RN) Headache: Denies (Deepa Shelley, RN) Breath Sounds, Left: Clear and Equal (Deepa Shelley, FATOU) Breath Sounds, Right: Clear and Equal (Deepa Shelley, FATOU) Nausea/Vomiting: Denies (Deepa Pickaway, RN) RUQ Epigastric Pain: Denies (Deepa Daphney, RN) Datetime: 05/29/2016 07:11 Vital Signs Stage of : Recovery (Yue Ring, RN) Datetime: 05/29/2016 07:00 Vital Signs Stage of : Recovery (Yue Ring, RN) Pain Pain Scale: 3 (Yue Ring, RN) Pain Presence: Constant (Yue Ring, RN) Pain Type: Burning; Ache (Yue Ring, RN) Pain Location: Perineum (Yue Ring, RN) Pain Goal: 1 (Yue Ring, RN) Pain Relief Measures: Pain Medication Given (Yue Ring, RN) Datetime: 05/29/2016 06:45 Vital Signs Stage of : Recovery (Yue Ring, RN) Pain Pain Scale: 3 (Yue Ring, RN) Pain Presence: Constant (Yue Ring, RN) Pain Type: Burning; Ache (Yue Ring, RN) Pain Location: Perineum (Yue Ring, RN) Pain Goal: 1 (Yue Ring, RN) Datetime: 05/29/2016 06:30 Vital Signs Stage of : Recovery (Yue Ring, RN) Pain Pain Scale: 3 (Yue Ring, RN) Pain Presence: Constant (Yue Ring, RN) Pain Type: Burning; Ache (Yue Ring, RN) Pain Location: Perineum (Yue Ring, RN) Pain Goal: 1 (Yue Ring, RN) Pain Relief Measures: Comfort Measures (Yue Ring, RN) Datetime: 05/29/2016 06:15 Vital Signs Stage of : Recovery (Jenni Diaz, RN) Datetime: 05/29/2016 06:14 Medications Pitocin (milliunit): Pitocin 20 Units in 1000ml NS (Jenni Diaz RN) Stage 2 Comments: delivery of intact placenta in evangelista position, three vessel cord, discarded per provider request (Jenni Diaz, FATOU) Datetime: 05/29/2016 06:10 Uterine Activity Monitor Mode: External; Palpation (Marichuy Abdiazizman, RN) Frequency (min): 1-2 (Marichuy Chalman, RN) Quality: Moderate to Strong (Marichuy Chalman, RN) Duration (sec): 50-70 (Marichuy Chalman, RN) Pattern: Normal: <= 5 Contractions in 10 Minutes (Marichuy Chalman, RN) Resting Tone (Palpate): Relaxed (Marichuy Chalman, RN) Comments: utd baseline while pt is (Marichuy Chalman, RN) Datetime: 05/29/2016 06:09 Pushing Progress: with Pushing (Yue Ring, RN) Datetime: 05/29/2016 06:07 Stage 2 Pushing: Coached on Pushing; Urge to Push (Yue Ring, RN) Pushing Position: Pushing with Contractions; Pushing Lithotomy (Yue Ring, RN) Pushing Progress: Pushing Effectively with Contractions (Yue Ring, RN) Datetime: 05/29/2016 06:02 Stage 2 Pushing: Coached on Pushing; Urge to Push; Involuntary Pushing (Jenni Diaz RN) Pushing Position: Pushing with Contractions (Jenni Diaz RN) Pushing Progress: Descent with Pushing; Presenting Part Visible; Pushing Effectively with Contractions (Jenni Diaz RN) Datetime: 05/29/2016 06:00 Uterine Activity Monitor Mode: External; Palpation (Marichuy Rios RN) Frequency (min): 1-3 (Marichuy Rios RN) Quality: Moderate to Strong (Marichuy Rios RN) Duration (sec): 50-70 (Marichuy Rios RN) Pattern: Normal: <= 5 Contractions in 10 Minutes (Marichuy Rios RN) Resting Tone (Palpate): Relaxed (Marichuy Rios RN) Assessment A Monitor Mode: External US (Marichuy Chalman, RN) FHR Baseline Rate : 145 (Marichuy Chalman, RN) FHR Baseline Changes: No Baseline Change (Marichuy Chalman, RN) Variability: Moderate 6-25 bpm (Marichuy Chalman, RN) Accelerations: 15X15 (Marichuy Chalman, RN) Decelerations: None (Marichuy Chalman, RN) Datetime: 05/29/2016 05:57 Communication Communication: Provider at Bedside (Jennidamaris Uriarteann, RN) Datetime: 05/29/2016 05:55 Stage 2 Pushing: Involuntary Pushing (Yue Ring, RN) Pushing Position: Pushing with Contractions (Yue Ring, RN) Pushing Progress: Perineal Bulging (Yue Ring, RN) Datetime: 05/29/2016 05:50 Patient Position/Activity: Left Lateral (Jenni Kossmann, RN) Stage 2 Pushing: Urge to Push; Involuntary Pushing (Jenni Tedalejandra, RN) Stage 2 Comments: encouraging to breathe through contractions (Jennidamaris Diaz, RN) Datetime: 05/29/2016 05:47 Patient Position/Activity: Right Lateral (Jennidamaris Uriarteann, RN) Datetime: 05/29/2016 05:45 Uterine Activity Monitor Mode: External; Palpation (Marichuy Blanca, RN) Frequency (min): 2-3 (Marichuy Chalman, RN) Quality: Moderate to Strong (Marichuy Chalman, RN) Duration (sec): 50-70 (Marichuy Chalman, RN) Pattern: Normal: <= 5 Contractions in 10 Minutes (Marichuy Chalman, RN) Resting Tone (Palpate): Relaxed (Marichuy Chalman, RN) Assessment A Monitor Mode: External US (Marichuy Blanca, RN) Assessment A Monitor Mode: External US (Chana Randall RN) FHR Baseline Rate : 145 (Marichuy Blanca, RN) FHR Baseline Rate : 145 (Chana Prakash, RN) FHR Baseline Changes: No Baseline Change (Marichuy Chalman, RN) Variability: Moderate 6-25 bpm (Marichuy Chalman, RN) Variability: Moderate 6-25 bpm (Chana Prakash, RN) Accelerations: 10X10 (Marichuy Chalman, RN) Accelerations: 15X15 (Chana Prakash, RN) Decelerations: None (Marichuy Chalman, RN) Comments: broken tracing, unable to determine decel noted (Chana Prakash, RN) Datetime: 05/29/2016 05:42 Communication Comments: Dr. heredia called and notified of pt. DIDIE. She states she will be to the unit shortly (Chana Prakash, RN) Datetime: 05/29/2016 05:39 Vaginal Exam Dilatation (cm): 10.0 (Chana Prakash, RN) Effacement (%): 100 (Chana Prakash, RN) Station: 0 (Chana Prakash, RN) Exam by: B. Ring, RN (Chana Prakash, RN) Stage 2 Comments: RN to remain at bedside throughout remainder of the second stage of labor adjusting u/s continuously monitoring FHT (Chana Prakash, RN) Datetime: 05/29/2016 05:38 Monitor Interventions for FHR: Ultrasound Adjusted (Chaan Prakash, RN) Datetime: 05/29/2016 05:36 Stage 2 Pushing: Urge to Push (Chana Prakash, RN) Stage 2 Comments: pt. states she has the urge to push (Chana Prakash, RN) Datetime: 05/29/2016 05:32 Monitor Interventions for FHR: Ultrasound Adjusted (Chana Prakash, RN) Datetime: 05/29/2016 05:30 Uterine Activity Monitor Mode: External (Chana Prakash, RN) Quality: Moderate to Strong (Chana Prakash, RN) Duration (sec): 70-90 (Chana Prakash, RN) Duration Criteria: Less than Two 120 Second Contractions (Chana Prakash, RN) Pattern: Normal: <= 5 Contractions in 10 Minutes (Chana Prakash, RN) Resting Tone (Palpate): Relaxed (Chana Prakash, RN) Contraction Comments: diffciult to assess frequency d/t pt. movement (Chana Prakash, RN) Assessment A Monitor Mode: External US (Chana Prakash, RN) FHR Baseline Rate : 135 (Chana Prakash, RN) Variability: Moderate 6-25 bpm (Chana Prakash, RN) Accelerations: 15X15 (Chana Prakash, RN) Comments: broken tracing, unable to determine decel noted (Chana Prakash, RN) Datetime: 05/29/2016 05:29 Monitor Interventions for FHR: Ultrasound Adjusted (Chana Prakash, RN) Comments: RN at bedside adjusting u/s (Chana Prakash, RN) Datetime: 05/29/2016 05:28 Procedure TIME OUT Procedure Verify: Correct Patient Identity; Correct Side and Site are Marked; Accurate Procedure Consent Form; Agreement on Procedure to be Done; Relevant Images and Results are Properly Labeled and Displayed; Addressed Need to Administer Antibiotics or Fluids for Irrigation; Safety Precautions Based on Patient History or Medication Use (Yue Ring, RN) Anesthesia Anesthesia Plans: Epidural (Yue Ring, RN) Datetime: 05/29/2016 05:27 Patient Care Comments: pt requests epidural (Yue Ring, RN) Datetime: 05/29/2016 05:20 I/O Interventions: Up to BR (Chana Prakash, RN) Patient Care Comments: pt up to walk (Yue Ring, RN) Datetime: 05/29/2016 05:00 Uterine Activity Monitor Mode: External (Chana Prakash, RN) Frequency (min): 1-4 (Chana Prakash, RN) Quality: Moderate to Strong (Chana Prakash, RN) Duration (sec): 40-70 (Chana Prakash, RN) Duration Criteria: Less than Two 120 Second Contractions (Chana Prakash, RN) Pattern: Normal: <= 5 Contractions in 10 Minutes (Chana Prakash, RN) Resting Tone (Palpate): Relaxed (Chana Prakash, RN) Assessment A Monitor Mode: External US (Chana Prakash, RN) FHR Baseline Rate : 135 (Chana Prakash, RN) Variability: Moderate 6-25 bpm (Chana Prakash, RN) Accelerations: 15X15 (Chana Prakash, RN) Decelerations: None (Chana Prakash, RN) Datetime: 05/29/2016 04:55 I/O Interventions: Up to BR (Hcana Prakash, RN) Datetime: 05/29/2016 04:43 Communication Communication: Provider Orders Received; Call/Page Placed to Provider (Yue Ochoa RN) Communication Comments: Per MD order: increase pitocin q 30 by 2 miliunits/min (Yue Ochoa RN) Communication Comments: Call placed to Dr. Heredia. Orders received that pt may walk if desired after reactive strip is obtained. Begin pitocin at 2 miliunits/min and increase by 2 miliunits/min for a maximum dose of 20 miliunits/min or until adequate labor is established when pt is finished walking and if not in adequate labor. Pt may have an epidural when desired. (Yue Ring, RN) Datetime: 05/29/2016 04:34 I/O Interventions: Up to BR (Chana Prakash, RN) Datetime: 05/29/2016 04:30 Uterine Activity Monitor Mode: External; Palpation (Chana Prakash, RN) Frequency (min): 1-4.5 (Chana Prakash, RN) Quality: Moderate to Strong (Chana Prakash, RN) Duration (sec): 40-60 (Chana Prakash, RN) Duration Criteria: Less than Two 120 Second Contractions (Chana Prakash, RN) Pattern: Normal: <= 5 Contractions in 10 Minutes (Chana Prakash, RN) Resting Tone (Palpate): Relaxed (Chana Prakash, RN) Contraction Comments: irritability noted (Chana Prakash, RN) Assessment A Monitor Mode: External US (Chana Prakash, RN) FHR Baseline Rate : 135 (Chana Prakash, RN) Variability: Moderate 6-25 bpm (Chana Prakash, RN) Accelerations: 15X15 (Chana Prakash, RN) Decelerations: Early (Chana Prakash, RN) Comments: possible late decelerations noted, ctn's difficult to visualize (Chana Prakash, RN) Datetime: 05/29/2016 04:15 Patient Care Procedures: Labs Drawn (Jenni Kossmann, RN) Datetime: 05/29/2016 04:10 Patient Care Procedures: Consents Signed (Jenni Kossmann, RN) Datetime: 05/29/2016 04:02 Pain Pain Scale: 4 (Yue Ring, RN) Pain Presence: Intermittent (Yue Ring, RN) Pain Type: Contraction (Yue Ring, RN) Pain Location: Abdomen (Yue Ring, RN) Pain Goal: 1 (Yue Ring, RN) Pain Relief Measures: Comfort Measures (Yue Ring, RN) Pain Coping: Talking Through Contractions; Breathing Through Contractions (Yue Ring, RN) Membrane Status: Ruptured (Yue Ring, RN) Membranes Ruptured Date/Time: 05/29/2016 03:15 (Yue Ring, RN) Membranes Rupture Method: Spontaneous (Yue Ring, RN) Amniotic Fluid Color: Clear (Yue Ring, RN) Amniotic Fluid Amount: Large (Chana Randall, RN) Vaginal Bleeding: None (Yue Ring, RN) Maternal Assessment Level of Consciousness: Fully Conscious (Yue Ring, RN) DTR's/Clonus: DTRs 2+; No Clonus (Yue Ring, RN) Headache: Denies (Yue Ring, RN) Breath Sounds, Left: Clear and Equal (Uye Ring, RN) Breath Sounds, Right: Clear and Equal (Yue Ring, RN) Nausea/Vomiting: Denies (Yue Ring, RN) RUQ Epigastric Pain: Denies (Yue Ring, RN) Teaching Instructional Method: Verbal; Patient Instructed; Family/Support Person Instructed; Verbalized Understanding (Yue Ring, RN) Plan of Care: Plan of Care Discussed (Yue Ring, RN) Unit Routine: [place] to Room; Call Lewis; Bed; Handwashing; Monitoring; Safety/Fall Risk Prevention; Bathroom Privileges (Yue Ring, RN) Labor/Induction: Labor Stages (Yue Ring, RN) Datetime: 05/29/2016 03:57 Pain Pain Scale: 3 (Chana Randall RN) Pain Presence: Intermittent (Chana Randall RN) Pain Type: Contraction (Chana Prakash, RN) Pain Location: Abdomen (Chana Prakash, RN) Datetime: 05/29/2016 03:56 Vaginal Exam Dilatation (cm): 3.0 (Chana Randall RN) Effacement (%): 80 (Chana Randall RN) Station: -1 (Chana Randall RN) Exam by: Stacie Randall RN (Chana Randall RN) Vaginal Bleeding: None (Chana Prakash, RN) Cervix, Consistency: Soft (Chana Prakash, RN) Cervix, Position: Midposition (Chana Prakash, RN) Datetime: 05/29/2016 03:54 NBP Sys/Amada/Mean (mmHg): 94 (QS system process) : 54 (QS system process) : 69 (QS system process) Pulse: 92 (QS system process) Datetime: 05/29/2016 03:52 Patient Position/Activity: Right Lateral (Chana Prakash, RN) Teaching Instructional Method: Verbal; Patient Instructed; Family/Support Person Instructed (Chana Randall RN) Plan of Care: Plan of Care Discussed; Vaginal Delivery (Chana Randall RN) Unit Routine: [place] to Room; Call Lewis; Bed; Visiting Policy; Waiting Areas; Infant Security; Photography; Unit Personnel (Chana Randall RN) Labor/Induction: Labor Stages (Chana Randall RN) Datetime: 05/29/2016 03:32 Amniotic Fluid Odor: Normal (Chana Randall RN)
--- NOTE | 2016-05-29 08:00 | Delivery Summary ---
Del Sum A-C Datetime Report Generated by CPN: 05/29/2016 08:00 ADMISSION DATA Chief Complaint: Suspected Ruptured Membranes Admission Impression: Term, Intrauterine Admit Provider Comments: Pt progressed precipitously to DELIVERY PERSONNEL Delivery Doctor:: Melisa Kruse, MD Labor and Delivery Nurse:: Yue Ring, wind commissioning technician Nurse:: Jenni Diaz, RN Jammer Operator/ADVERTISING SALES MANAGER: Airam Green, ST MATERNAL INFORMATION Delivery Anesthesia: None Medications After Delivery: Pitocin Bolus-Please Comment; Pitocin Drip 20 Units/1000ml NSS Meds After Delivery Comment: NS with Pitocin 20 units/liter IVF bolus x 1 liter Estimated Blood Loss (ml): 200 Maternal Complications: Precipitous Labor (<3hrs) Provider Comments: Pt progressed to over intact perineum of male with apgars 9 and9. Head delivered oa and shoulders and body delivered easily. COMMERCIAL LOAN REVIEWER/OP bulb suctioned. Cord clamped and cut. Placenta spont and intact. Mom and baby doing well. LABOR SUMMARY EDC: 06/04/2016 00:00 No. Babies in Womb: 1 Attempted: No Labor Anesthesia: None LABOR INFORMATION Reason for Induction: Not Applicable Onset of Labor: 05/29/2016 03:56 Complete Dilatation: 05/29/2016 05:39 Oxytocin: N/A Group B Beta Strep: negative Antibiotics # of Doses: 0 Antibiotics Time of Last Dose: n/a Steroids Given: None Reason Steroids Not Administered: Not Applicable MEMBRANES Membranes Rupture Method: Spontaneous Rupture of Membranes: 05/29/2016 03:15 Length of Rupture (hr): 2.92 Amniotic Fluid Color: Clear Amniotic Fluid Amount: Large Amniotic Fluid Odor: Normal STAGES OF LABOR Stage 1 hr: 1 Stage 1 min: 43 Stage 2 hr: 0 Stage 2 min: 31 Stage 3 hr: 0 Stage 3 min: 4 Total Time in Labor hr: 2 Total Time in Labor min: 18 VAGINAL DELIVERY Episiotomy: None Laceration Extension: N/A Laceration Type: None Sponge Count Correct: N/A Sharps Count Correct: N/A CSECTION DELIVERY Primary Indication: N/A Secondary Indication: N/A CSection Incidence: N/A Labor: N/A Elective: N/A CSection Incision: N/A BABY A INFORMATION Infant Delivery Date/Time: 05/29/2016 06:10 Method of Delivery: Vaginal Born in Route : No : N/A Forceps: N/A Vacuum Extraction: N/A Shoulder Dystocia : No PRESENTATION/POSITION BABY A Presentation: Cephalic Cephalic Presentation: Vertex Vertex Position: Left Occipital Anterior Breech Presentation: N/A PLACENTA INFORMATION BABY A Placenta Delivery Time : 05/29/2016 06:14 Placenta Method of Delivery: Spontaneous Placenta Status: Delivered SCORES BABY A Heart Rate 1 min: >100 bpm Resp Effort 1 min: Good Cry Reflex Irritability 1 min: Cough or Sneeze or Pulls Away Muscle Tone 1 min: Active Motion Color 1 min: Body [place], Extremities Blue Resuscitation Effort 1 min: Tactile Stimulation SCORE 1 MIN: 9 Heart Rate 5 min: >100 bpm Resp Effort 5 min: Good Cry Reflex Irritability 5 min: Cough or Sneeze or Pulls Away Muscle Tone 5 min: Active Motion Color 5 min: Body [place], Extremities Blue Resuscitation Effort 5 min: Tactile Stimulation SCORE 5 MIN: 9 INFANT INFORMATION BABY A Gestational Age at Delivery: 39.1 Gestational Status: Full Term- 39- 40.6 Weeks Outcome : Liveborn Infant Condition : Stable Sex: Male IDENTIFICATION BABY A Verification Date/Time: 05/29/2016 06:29 ID Band Number: [id number] Mother's Name Verified: Yes Infant RN Verifying : Blanca HeathFred RN Additional Verifying Personnel: Stacie Randall, RN WEIGHT/LENGTH BABY A Birthweight (gm): 3335 Weight (lb): 7 Infant Weight (oz): 6 Length (in): 20.00 Infant Length (cm): 50.80 CORD INFORMATION BABY A No. Cord Vessels: 3 Nuchal Cord : N/A Cord Blood Taken: Yes-For Eval (Mom's Blood Type - or O+) Suction: Mouth; Nose ASSESSMENT BABY A Complications: Other Complications- Other: terminal meconium Physical Findings at Delivery: Within Normal Limits Respirations: Appears Normal Skin to Skin: Yes Skin to Skin Time (min): 60 Global Clinical Leader/ALS Called : No Transferred To: Remains with Mother SIGNATURES Signature: with User ID: [email or web address]
--- NOTE | 2016-05-29 08:22 | Admission Physical ---
Datetime Report Generated by CPN: 05/29/2016 08:21 CURRENT ADMISSION Hx Assessment: The History has been Reviewed and is Current Chief Complaint: Suspected Ruptured Membranes Admit Plan: Admit to Unit ALLERGIES Medication Allergies: No Medication Allergies: pineapple (05/29/2016) Latex: No Latex Allergies Food Allergies: pineapple OBSTETRICAL HISTORY EDC: 06/04/2016 00:00 : 1 Para: 0 Term: 0 : 0 SAB: 0 IAB: 0 Ectopic: 0 Livin Cesareans: 0 VBACs: 0 Multiple Births: 0 Gestational Diabetes: No Rh Sensitization: No Incompetent Cervix: No PRAFUL: No Infertility: No ART Treatment: No Uterine Anomaly: No IUGR: No Hx Previous C/S: No Macrosomia: No Hx Loss/Stillborn: No PIH: No Hx : No Placenta Previa/Abruption: No Depression/PP Depression: No PTL/PROM: No Post Hemorrhage: No Current Procedures: Ultrasound; NST Obstetrical History Comments: G1: current SEE RECORDS Alcohol: No Marijuana : No Cocaine: No Other Illicit Drugs: No Cigarettes: Never Smoker. 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 Surgery: No Heart Disease: No Hosp/Surgery: No Autoimmune Disorder: No Anesthetic Complications: No Kidney Disease: No Abnormal Pap Smear: Yes Neuro/Epilepsy: No Psychiatric Disorders: No Other Medical Diseases: No Hepatitis/Liver Disease: No Significant Family History: No Varicosities/Phlebitis: No Trauma/Violence : No Thyroid Dysfunction: No INFECTIOUS HISTORY Gonorrhea: Yes Genital Herpes: No Chlamydia: No Tuberculosis: No Syphilis: No Hepatitis: No HIV/AIDS Exposure: No Rash or Viral Illness: No HPV: No Infectious History Comments: 2014 PHYSICAL EXAM General: Normal HEENT: Normal Neurologic: Normal Thyroid: Normal Heart: Normal Lungs: Normal Breast: Normal Back: Normal Abdomen: Normal Genitourinary Exam: Normal Extremities: Normal DTRs: Normal Pelvic Type: Adequate FETUS A EGA: 39.1 Monitoring: External US FHR Category: Category I Admit Comment: Pt progressed precipitously to PLANS FOR LABOR AND DELIVERY Labor and Delivery: None Pain Management: Epidural Feeding Preference: Breast Benefit of Breast Feed Discussed: Yes Circumcision: Yes INFORMED CONSENT Signature: with User ID: [email or web address]
--- NOTE | 2016-05-29 10:12 | PDOC PROGRESS REPORT ---
Subjective-OB Subjective: Post Delivery Day: 20 year old. Denies any needs at this time Physical Exam (OB) Vital Signs: Temp Pulse Resp BP Pulse Ox 97.4 F 89 18 98/63 L 100 05/29/16 08:32 05/29/16 08:32 05/29/16 08:32 05/29/16 08:32 05/29/16 08:32 Intake & Output 05/28/16 05/29/16 05/30/16 06:59 06:59 06:59 Weight 73.85 kg - PIH/Pre-Eclampsia DTR's: 2 + Clonus: Negative Headache: Absent Epigastric Pain: No Visual Changes: No - Lochia Lochia Amount: Small 10-25 ml Lochia Color: Rubra/Red - Abdomen Description: Soft, Round Hernia Present: No Bowel Sounds: Normoactive Flatus Presence: Absent Stool: No Fundal Description: Firm, Midline Fundal Height: u/u - u/2 Objective-Diagnostic Laboratory: 05/29/16 04:14 05/29/16 05/29/16 05/29/16 03:42 04:10 04:14 WBC 8.4 RBC 3.75 Hgb 10.2 L Hct 30.2 L MCV 81 MCH 27.2 MCHC 33.8 RDW 14.8 H Plt Count 194 Seg Neutrophils % 71.6 Lymphocytes % 17.6 Monocytes % 9.2 Eosinophils % 1.1 Basophils % 0.5 Absolute Neutrophils 6.0 Absolute Lymphocytes 1.5 Absolute Monocytes 0.8 Absolute Eosinophils 0.1 Absolute Basophils 0.0 Urine Color YELLOW Urine Appearance SLIGHTLY-CLOUDY Urine pH 6.0 Ur Specific [place] 1.017 Urine Protein NEGATIVE Urine Glucose (UA) NEGATIVE Urine Ketones NEGATIVE Urine Blood NEGATIVE Urine Nitrite NEGATIVE Ur Leukocyte Esterase NEGATIVE Blood Type AB NEGATIVE Antibody Screen NEGATIVE
[2016-05-29] MEDS: PRENATAL VITAMIN W-O CA NO5/FE FUMARATE/FA CAPSULE PO SCH (10:25)
[2016-05-29] MEDS: FERROUS SULFATE 325 MG TABLET PO SCH ×2 (10:25→17:45)
[2016-05-29] MEDS: DOCUSATE SODIUM 100 MG CAPSULE PO SCH ×2 (10:26→17:45)
[2016-05-29] MEDS: SENNOSIDES/DOCUSATE 8.6-50 MG 1 EACH TABLET PO SCH (10:26)
[2016-05-29] MEDS: IBUPROFEN 800 MG TABLET PO SCH ×2 (13:51→21:33)
--- NOTE | 2016-05-29 19:00 | L&D Flow Sheet ---
LD Flowsheet Datetime Report Generated by CPN: 05/29/2016 19:00 Datetime: 05/29/2016 08:10 Stage of : Recovery (Deepa Shelley RN) Datetime: 05/29/2016 08:05 Stage of : Recovery (Deepa Shelley RN) Temperature (F): 98.0 (Deepa Shelley RN) Temperature (C): 36.7 (QS system process) Temperature Route: Oral (Deepa Shelley RN) Pain Scale: 1 (Deepa Shelley RN) Pain Presence: Intermittent (Deepa Shelley RN) Pain Type: Cramping (Deepa Shelley RN) Pain Location: Abdomen (Deepa Shelley RN) Pain Goal: 1 (Deepa Shelley RN) Pain Relief Measures: Comfort Measures (Deepa Shelley, FATOU) Datetime: 05/29/2016 08:00 Stage of : Recovery (Deepa Shelley, ) Datetime: 05/29/2016 07:45 Stage of : Recovery (Deepa Shelley RN) Pain Scale: 1 (Deepa Shelley RN) Pain Presence: Intermittent (Deepa Shelley RN) Pain Type: Cramping (Deepa Shelley RN) Pain Location: Abdomen (Deepa Shelley RN) Pain Goal: 1 (Deepa Shelley RN) Pain Relief Measures: Comfort Measures (Deepa Shelley, FATOU) Datetime: 05/29/2016 07:30 Stage of : Recovery (Deepa Shelley, FATOU) Datetime: 05/29/2016 07:25 Stage of : Recovery (Deepa FATOU Shelley) NBP Sys/Amada/Mean (mmHg): 108 (QS system process) : 59 (QS system process) : 76 (QS system process) Pulse: 60 (QS system process) Respirations: 12 (Deepa FATOU Shelley) Datetime: 05/29/2016 07:19 Stage of : Recovery (Deepa Shelley RN) Temperature (F): 98.2 (Deepa Shelley RN) Temperature (C): 36.8 (QS system process) Temperature Route: Oral (Deepa Shelley RN) Pain Scale: 2 (Deepa Shleley RN) Pain Presence: Intermittent (Deepa Shelley RN) Pain Type: Cramping (Deepa Shelley RN) Pain Location: Abdomen (Annotations: with fundal massage) (Deepa Shelley RN) Pain Goal: 1 (Deepa Shelley RN) Pain Relief Measures: Comfort Measures (Deepa Shelley RN) Datetime: 05/29/2016 07:18 Instructional Method: Verbal; Patient Instructed; Family/Support Person Instructed; Verbalized Understanding (Deepa Shelley RN) Plan of Care: Plan of Care Discussed (Deepa Shelley RN) Unit Routine: Call Lewis; Bed (Deepa Shelley RN) Datetime: 05/29/2016 07:14 Level of Consciousness: Fully Conscious (Deepa Shelley RN) DTR's/Clonus: DTRs 2+; No Clonus (Deepa Shelley RN) Headache: Denies (Deepa Shelley RN) Breath Sounds, Left: Clear and Equal (Deepa Shelley RN) Breath Sounds, Right: Clear and Equal (Deepa Shelley RN) Nausea/Vomiting: Denies (Deepa Shelley RN) RUQ Epigastric Pain: Denies (Deepa Shelley RN) Datetime: 05/29/2016 07:11 Stage of : Recovery (Yue Ochoa RN) Datetime: 05/29/2016 07:00 Stage of : Recovery (Yue Ochoa RN) Pain Scale: 3 (Yue Ochoa RN) Pain Presence: Constant (Yue Ochoa RN) Pain Type: Burning; Ache (Yue Ochoa RN) Pain Location: Perineum (Yue Ochoa RN) Pain Goal: 1 (Yue Ochoa RN) Pain Relief Measures: Pain Medication Given (Yue Ochoa RN)
[2016-05-30] MEDS: IBUPROFEN 800 MG TABLET PO SCH ×2 (05:13→13:24)
--- NOTE | 2016-05-30 06:08 | L&D Current Admission ---
Current Admit Datetime Report Generated by CPN: 05/30/2016 06:00 ADMISSION INFORMATION Current Admit Date/Time: 05/29/2016 04:08 (05/29/2016 04:05:Chana Randall RN) Reason for Admission: Rupture of Membranes (05/29/2016 04:02:Chana Randall RN) Chief Complaint: Suspected Rupture of Membranes (05/29/2016 04:05:Chana Randall RN) Medications During : Ferrous Sulfate (Iron); Vitamin (05/29/2016 04:05:Chana Randall RN) EGA per Dates: 39.1 (05/29/2016 04:05:QS system process) Method of Arrival: Wheelchair (05/29/2016 04:02:Chana Randall RN) Admitted From: Home (05/29/2016 04:02:Chana Randall RN) Reason for Induction: Not Applicable (05/29/2016 04:02:Chana Randall RN) Records Available: Yes (05/29/2016 04:02:Chana Randall RN) General Admission Information: Reviewed; Confirmed (05/29/2016 04:02:Chana Randall RN) General Admission Reviewed By: Stacie Randall RN (05/29/2016 04:02:Chana Randall RN) BELONGINGS/ADVANCED DIRECTIVES Other Belongings: see paper belongings form (05/29/2016 04:02:Chana Randall RN) Disposition of Belongings: Kept with Patient (05/29/2016 04:05:Yue Ochoa RN) Advance Direct for Healthcare: No, and Wants No Information (05/29/2016 04:05:Yue Ochoa RN) Durable Power of Respite Provider: No (05/29/2016 04:05:Yue cOhoa RN) Living Will: No (05/29/2016 04:05:Yue Ochoa RN) Organ Donor: Yes (05/29/2016 04:05:Yue Ochoa RN) Pt Rights Information Given: Yes (05/29/2016 04:05:Yue Ochoa RN) Pt Understands Pt Rights: Yes (05/29/2016 04:05:Yue Ochoa RN) LEARNING ASSESSMENT Knowledge Level: Understands L_D Process; Understands Care Activities; Had Pre-Hospital Education; Understands Diagnosis (05/29/2016 04:05:Yue Ochoa RN) Barriers to Learning: Visual Deficit (05/29/2016 04:05:Yue Ochoa RN) Learning Readiness: Motivated (05/29/2016 04:05:Yue Ochoa RN) Learns Best By: 1 to 1 Instruction; Reading; Videos; Group Discussion; Demonstration (05/29/2016 04:05:Yue Ochoa RN) Learning Needs: Labor and Delivery Process; Pain Management; Symptoms to Report; Treatment Plan; Medication (05/29/2016 04:05:Yue Ochoa RN) Learning Assessment Comments: Needs glasses (05/29/2016 04:05:Yue Ochoa RN) DOMESTIC VIOLANCE SCREENING Dom Viol Threatened/Hurt: No (05/29/2016 04:05:Yue Ochoa RN) Hx of Abuse/Neglect past 2yrs: No (05/29/2016 04:05:Yue Ochoa RN) Feel Unsafe Going Home: No (05/29/2016 04:05:Yue Ochoa RN) Addt'l Observ Indicating Abuse: No (05/29/2016 04:05:Yue Ochoa RN) Reason Unable to Complete Screen: N/A, Screen Completed (05/29/2016 04:05:Yue Ochoa RN) Considered Personal Harm/Suicide: No (05/29/2016 04:05:Yue Ochoa RN) NUTRITIONAL/FUNCTIONAL SCREENING Problem with Appetite >5 Days: No (05/29/2016 04:05:Yue Ochoa RN) Chew/Swallow Difficulties: No (05/29/2016 04:05:Yue Ochoa RN) Inappropriate Wt Gain/Loss: No (05/29/2016 04:05:Yue Ochoa RN) Presence Skin Breakdown/Ulcer: No (05/29/2016 04:05:Yue Ochoa RN) Special Diet: No (05/29/2016 04:05:Yue Ochoa RN) Pt Requests Dip Guider Stoves Visit: No (05/29/2016 04:05:Yue Ochoa RN) Hx of Any of the Following?: N/A (05/29/2016 04:05:Yue Ochoa RN) New Diagnosis of: N/A (05/29/2016 04:05:Yue Ochoa RN) Requires Assist w/Ambulation: No (05/29/2016 04:05:Yue Ochoa RN) Uses Assist Device to Ambulate: No (05/29/2016 04:05:Yue Ochoa RN) Pt Requires Help w/ADL's: No (05/29/2016 04:05:Yue Ochoa RN)
--- NOTE | 2016-05-30 06:09 | L&D General Admission ---
General Admit Datetime Report Generated by CPN: 05/30/2016 06:00 INFORMATION Patient Age: 20 (04/27/2016 12:09:QS system process) EDC: 06/04/2016 00:00 (05/29/2016 03:32:Chana Randall RN) : 1 (05/29/2016 03:32:Yue Ring, RN) Para: 0 (05/29/2016 03:32:Yue Ring, RN) Term: 0 (05/29/2016 03:32:Yue Ring, RN) : 0 (05/29/2016 03:32:Yue Ring, RN) Spontaneous Abortions: 0 (05/29/2016 03:32:Yue Ring, RN) Induced Abortions: 0 (05/29/2016 03:32:Yue Ring, RN) Livin (05/29/2016 03:32:Uye Ring, RN) Cesareans: 0 (05/29/2016 03:32:Yue Ring, RN) VBACs: 0 (05/29/2016 03:32:Yue Ring, RN) Ectopic: 0 (05/29/2016 03:32:Yue Ochoa RN) Multiple Births: 0 (05/29/2016 03:32:Yue Ochoa RN) Baby, Number in Womb: 1 (05/29/2016 03:32:Yue Ochoa RN) CARE Primary 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: [email or web address] (05/29/2016 03:32:Chana Randall RN) Adequate Care: Yes (05/29/2016 03:32:Yue Ochoa RN) Height (in): 64 (05/29/2016 08:21:QS system process) ALLERGIES Medication Allergy: No (05/29/2016 03:32:Yue Ochoa RN) Medication Allergies: pineapple (05/29/2016) (05/29/2016 04:38:QS system process) Latex Allergy: No Latex Allergies (05/29/2016 03:32:Yue Ochoa RN) Food Allergies: pineapple (05/29/2016 03:32:Jenni Diaz RN) COMMUNICATION Primary Language: Bhutanese (05/29/2016 03:32:Yue Ochoa RN) Medical Tx Preferred Language: Bhutanese (05/29/2016 03:32:Yue Ochoa RN) Bhutanese Communication Ability: Speaks Bhutanese; Reads Bhutanese (05/29/2016 03:32:Jenni Diaz RN) Communication Barrier(s): None (05/29/2016 03:32:Jenni Diaz RN) DEMOGRAPHICS Address: [address] [place] [id number] (04/27/2016 12:09:QS system process) Zipcode: [address] (04/27/2016 12:09:QS system process) Home (04/27/2016 12:09:QS system process) Work (04/27/2016 12:09:QS system process) SSN: [id number] (04/27/2016 12:09:QS system process) Next of Kin Name: HAYES DIETRICH (04/27/2016 12:09:QS system process) Next of Kin (04/27/2016 12:09:QS system process) Next of Kin Relationship: OR (04/27/2016 12:09:QS system process) Date of : 1995 (04/27/2016 12:09:QS system process) Marital Status: Single (04/27/2016 12:09:QS system process) Sex: Female (04/27/2016 12:09:QS system process) Race: (04/27/2016 12:09:QS system process) Ethnicity: Non- or (04/27/2016 12:09:QS system process) Nondenominational: None (04/27/2016 12:09:QS system process) DRUG AND ALCOHOL USE Alcohol: No (05/29/2016 03:32:Yue Ring, RN) Cigarettes: Never Smoker. 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: [facility] (05/29/2016 03:32:Yue Ochoa RN) Feeding Preference: Breast (05/29/2016 03:32:Yue Ochoa RN) Benefit of Breast Feed Discussed: Yes (05/29/2016 03:32:Yue Ochoa RN) Circumcision: Yes (05/29/2016 03:32:Yue Ochoa RN) Classes Attended: No (05/29/2016 03:32:Yue Ochoa RN) Tubal Ligation: No (05/29/2016 03:32:Yue Ochoa RN) Tubal Authorization Signed: N/A (05/29/2016 03:32:Yue Ochoa RN) Consent: N/A (05/29/2016 03:32:Yue Ochoa RN) Consent Signed: N/A (05/29/2016 03:32:Yue Ochoa RN) Pain Management Plans: Epidural (05/29/2016 03:32:Yue Ochoa RN) Plans for Labor and Delivery: None (05/29/2016 03:32:Yue Ochoa RN) Support Person: Vj (05/29/2016 03:32:Yue Ochoa RN) Support Person Relationship: Significant Other (05/29/2016 03:32:Yue Ochoa RN) Cultural/Spritual Practice: No (05/29/2016 03:32:Yue Ochoa RN) Spir/Cult Dietary Needs: No (05/29/2016 03:32:Yue Ochoa RN) LIVING SITUATION/DISCHARGE PLAN Living Arrangements: House (05/29/2016 03:32:Yue Ochoa RN) Adequate Access to:: Electric; Heat; Refrigeration; Plumbing/Running water; Phone; Transportation (05/29/2016 03:32:Yue Ochoa RN) WIC Program: No (05/29/2016 03:32:Yue Ochoa RN) Discharge Cell Biology Scientist Person: Vj (05/29/2016 03:32:Yue Ochoa RN) Person to Help after Discharge: Vj (05/29/2016 03:32:Yue Ochoa RN) Currently Using Commun Resources: Yes (05/29/2016 03:32:Yue Ochoa RN) Specify Current Resource Used: Medicaid (05/29/2016 03:32:Yue Ochoa RN) Outside Agency/[employer] Sales Consultant: No (05/29/2016 03:32:Yue Ochoa RN) Car Seat for Discharge: Yes (05/29/2016 03:32:Yue Ochoa RN) Adoption Requested: No (05/29/2016 03:32:Yue Ochoa RN) Pt Contact w/infant Post : N/A (05/29/2016 03:32:Yue Ochoa RN) LABS Blood Type: AB Negative (05/29/2016 03:32:Marichuy Rios RN) Antibody Screen: Negative (05/29/2016 03:32:Yue Ochoa RN) Hemoglobin: 10.2 L (05/29/2016 04:14:QS system process) Hematocrit: 30.2 L (05/29/2016 04:14:QS system process) MCV: 81 (05/29/2016 04:14:QS system process) Group Beta Strep: negative (05/29/2016 03:32:Marichuy Rios RN) Gonorrhea: Negative (05/29/2016 03:32:Marichuy Rios RN) Chlamydia: Negative (05/29/2016 03:32:Marichuy Rios RN) RPR/VDRL: Nonreactive (05/29/2016 03:32:Marichuy Rios RN) HIV Results: negative (Annotations: Data stored by N on behalf of user) (05/29/2016 03:32:Jenni Diaz RN) Hepatitis B: Negative (05/29/2016 03:32:Jenni Diaz RN) Rubella: Immune (05/29/2016 03:32:Jenni Diaz RN) OB/PREVIOUS HISTORY Current Procedures: Ultrasound; NST (05/29/2016 03:32:Jenni Diaz RN) History of Previous : No (05/29/2016 03:32:Yue Ochoa RN) History of Gestational Diabetes: No (05/29/2016 03:32:Yue Ochoa RN) History of PIH: No (05/29/2016 03:32:Yue Ochoa RN) History of Incompetent Cervix: No (05/29/2016 03:32:Yue Ochoa RN) History of Placenta Previa/Abrup: No (05/29/2016 03:32:Yue Ochoa RN) History of Macrosomia: No (05/29/2016 03:32:Yue Ochoa RN) History of IUGR: No (05/29/2016 03:32:Yue Ochoa RN) History of Hemorrhage: No (05/29/2016 03:32:Yue Ochoa RN) History of Loss/Stillborn: No (05/29/2016 03:32:Yue Ochoa RN) History of : No (05/29/2016 03:32:Yue Ochoa RN) History of D (Rh) Sensitization: No (05/29/2016 03:32:Yue Ochoa RN) History Recurrent Loss/Stillborn: No (05/29/2016 03:32:Yue Ochoa RN) History Depression/PP Depression: No (05/29/2016 03:32:Yue Ochoa RN) History of Uterine Anomaly/PRAFUL: No (05/29/2016 03:32:Yue Ochoa RN) History of Infertility: No (05/29/2016 03:32:Yue Ochoa RN) History of ART Treatment: No (05/29/2016 03:32:Yue Ochoa RN) History of PRAFUL: No (05/29/2016 03:32:Yue Ochoa RN) Comments Obstetrical History: G1: current (05/29/2016 03:32:Yue Ochoa RN) MEDICAL HISTORY Med Hx Diabetes: No (05/29/2016 03:32:Yue Ochoa RN) Med Hx Hypertension: No (05/29/2016 03:32:Yue Ochoa RN) Med Hx Heart Disease: No (05/29/2016 03:32:Yue Ochoa RN) Med Hx Autoimmune Disorder: No (05/29/2016 03:32:Yue Ochoa RN) Med Hx Kidney Disease/UTI: No (05/29/2016 03:32:Yue Ochoa RN) Med Hx Neurologic/Epilepsy: No (05/29/2016 03:32:Yue Ochoa RN) Med Hx Psychiatric Disorders: No (05/29/2016 03:32:Yue Ochoa RN) Med Hx Hepatitis/Liver Disease: No (05/29/2016 03:32:Yue Ochoa RN) Med Hx Varicosities/Phlebitis: No (05/29/2016 03:32:Yue Ochoa RN) Med Hx Thyroid Dysfunction: No (05/29/2016 03:32:Yue Ochoa RN) Med Hx Trauma/Violence: No (05/29/2016 03:32:Yue Ochoa RN) Med Hx Blood Transfusion: No (05/29/2016 03:32:Yue Ochoa RN) Med Hx Pulmonary (Asthma,TB): No (05/29/2016 03:32:Yue Ochoa RN) Med Hx Breast: No (05/29/2016 03:32:Yue Ochoa RN) Med Hx COMPUTER FORENSICS INVESTIGATOR Surgery: No (05/29/2016 03:32:Yue Ochoa RN) Med Hx Hospitalization/Surgery: No (05/29/2016 03:32:Yue Ochoa RN) Med Hx Anesthetic Complications: No (05/29/2016 03:32:Yue Ochoa RN) Med Hx Abnormal Pap Smear: Yes (05/29/2016 03:32:Yue Ochoa RN) Other Medical Diseases: No (05/29/2016 03:32:Yue Ochoa RN) Med Hx Significant Family Hx: No (05/29/2016 03:32:Yue Ochoa RN) INFECTIOUS HISTORY Inf Hx Gonorrhea: Yes (05/29/2016 03:32:Jenni Diaz RN) Inf Hx Chlamydia: No (05/29/2016 03:32:Yue Ochoa RN) Inf Hx Syphilis: No (05/29/2016 03:32:Yue Ochoa RN) Inf Hx HIV/AIDS: No (05/29/2016 03:32:Yue Ochoa RN) Inf Hx Human Papilloma Virus: No (05/29/2016 03:32:Yue Ochoa RN) Inf Hx Pt/Partner Genital Herpes: No (05/29/2016 03:32:Yue Ochoa RN) Inf Hx Tuberculosis/Exposure: No (05/29/2016 03:32:Yue Ochoa RN) Inf Hx Hepatitis B,C: No (05/29/2016 03:32:Yue Ochoa RN) Inf Hx Rash or Viral Illness: No (05/29/2016 03:32:Yue Ochoa RN) Details of Infectious Hx: 2015 (05/29/2016 03:32:Yue Ochoa RN) GENETIC HISTORY Gen Hx Age >=35 at TEX: Yes (05/29/2016 03:32:Yue Ochoa RN) Gen Hx Thalassemia: No (05/29/2016 03:32:Yue Ochoa RN) Gen Hx Congenital Heart Defect: No (05/29/2016 03:32:Yue Ochoa RN) Gen Hx Neural Tube Defect: No (05/29/2016 03:32:Yue Ochoa RN) Gen Hx Down's Syndrome: No (05/29/2016 03:32:Yue Ochoa RN) Gen Hx Yovany-Sachs: No (05/29/2016 03:32:Yue Ochoa RN) Gen Hx Jaspreet: No (05/29/2016 03:32:Yue Ochoa RN) Gen Hx Familial Dysautonomia: No (05/29/2016 03:32:Yue Ochoa RN) Gen Hx Sickle Cell Disease/Trait: No (05/29/2016 03:32:Yue Ochoa RN) Gen Hx Hemophilia/Blood Disorder: No (05/29/2016 03:32:Yue Ochoa RN) Gen Hx Muscular Dystrophy: No (05/29/2016 03:32:Yue Ochoa RN) Gen Hx Cystic Fibrosis: No (05/29/2016 03:32:Yue Ochoa RN) Gen Hx Huntingtons Chorea: No (05/29/2016 03:32:Yue Ochoa RN) Gen Hx Mental Retardation/Autism: No (05/29/2016 03:32:Yue Ochoa RN) Gen Hx Tested for Fragile X: No (05/29/2016 03:32:Yue Ochoa RN) Gen Hx Other Inher/Chromosomal: No (05/29/2016 03:32:Yue Ochoa RN) Gen Hx Maternal Metabolic DO: No (05/29/2016 03:32:Yue Ochoa RN) Gen Hx Pt Father or FOB Defect: No (05/29/2016 03:32:Yue Ochoa RN) Gen Hx Other Genetic History: No (05/29/2016 03:32:Yue Ochoa RN) Gen Hx Drugs/Meds since LMP: Yes (05/29/2016 03:32:Yue Ochoa RN) Gen Hx Medications: PNV, iron, cephalexin (05/29/2016 03:32:Yue Ochoa RN) Details of Genetic History: FOB is 36 years old (05/29/2016 03:32:Yue Ochoa RN)
--- NOTE | 2016-05-30 06:15 | L&D Care Plan ---
LD CARE PLANS Datetime Report Generated by CPN: 05/30/2016 06:15 Datetime: 05/29/2016 04:01 Pain State: Risk For (Chana Randall RN) Related To: Labor and Delivery Process; Surgical Procedure; Complication(s) of ; Disease Process; Treatment and Procedures; Post (Chana Randall RN) Goal(s): Patients Pain will be Assessed and Managed; Patient will Verbalize Adequate Relief of Pain or the Ability to [place] with Current Pain (Chana Randall RN) Interventions: Assess Pain Severity on Scale of 0 (None) to 5 (Severe); Assess Type, Location and Intensity of Pain Each Time Client Reports Discomfort and Notify Provider if Unusal Pain Develops; Encourage Proper Breathing and Relaxation Techniques; Offer Alternatives Such as Repositioning, Calm Environment, Massages, Diversional Activities, Ice Pack, Splinting, and Ambulation; Administer Analgesics as Ordered; Assist with Epidural Placement as Appropriate; Evaluate Therapeutic Effectiveness of Medication and Treatments (Chana Randall RN) Outcome: Patient will Report Absence or Relief of Pain Consistent with Established Pain Goal (Chana Randall RN) Status: Ongoing (Chana Randall RN) Outcome: Patient will have a Decrease in Signs and Symptoms of Discomfort (Chana Randall RN) Status: Ongoing (Chana Randall RN) Outcome: Pain will be Controlled During Procedures (Chana Randall RN) Status: Ongoing (Chana Randall RN) Anxiety State: Risk For (Chana Randall RN) Related To: Labor and Delivery Process; Surgical Procedure; Perceived or Actual Threat to ; Fear of Unknown; Situational Crisis; Medical Interventions; Significant Life Event (Chana Randall RN) Goal(s): Patient will have Decreased Anxiety and be able to Function at Acceptable Levels (Chana Randall RN) Interventions: Assess Verbal and Nonverbal Behavioral Indicators of Anxiety; Assist Patient to Identify and Verbalize Symptoms of Anxiety; Identify and Demonstrate Techniques to Control Anxiety; Assist Patient with Coping Mechanisms to Manage Anxiety; Provide Theraputic Touch for the Patient; Explain to Patient, Using a Calm Reassuring Approach and Nonmedical Terms, All Activities, Procedures, and Concerns; Instruct Patient and Family about Post Discharge Care, Limitations, Symptoms to Report and Resources Available (Chana Randall RN) Outcome: Patient will Identify, Verbalize and Demonstrate Techniques to Control Anxiety (Chana Randall RN) Status: Ongoing (Chana Randall RN) Outcome: Patient's Posture, Facial Expressions, Gestures and Activity Level will Reflect Decreased Anxiety (Chana Randall RN) Status: Ongoing (Chana Randall RN) Outcome: Patient will Verbalize a Sense of Control and/or Acceptance of the Situation (Chana Randall RN) Status: Ongoing (Chana Randall RN) Outcome: Patient will Identify and Utilize Support Person (Chana Randall RN) Status: Ongoing (Chana Randall RN) Knowledge Deficit State: Risk For (Chana Randall RN) Related To: Labor and Delivery Process; Surgical Procedures; Treatment and Procedures; Impending Alterations in Family Dynamics; Feeding and Infant Care; Community Resources and Available Support Mechanisms (Chana Randall RN) Goal(s): Patient will Accurately Verbalize Understanding of Plan of Care and Treatment; Patient and Family will Accurately Verbalize Understanding of the Disease Process (Chana Randall RN) Interventions: Assess Motivation and Willingness of Patient/Family to Learn; Assess Preferred Learning Mode: One to One Instruction, Reading, Videos, Group Discussion or Demonstration; Assess Barriers to Learning: Pain, Emotional State, Language Barrier, Cognitive Impairment, Visual or Hearing Deficits; Assess Patient and Family Knowledge of Disease Process, Medications and Treatment; Discuss Therapy and/or Treatment Options, Describe Rationale Behind Management, Therapy and Treatment Recommendations; Instruct Patient and Family on Signs and Symptoms to Report; Instruct Patient and Family on Medication Effects and Side Effects; Provide Appropriate and Timely Education Using Multiple Techniques; Provide Patient and Family with Support Group Information and Resources; Give Clear and Thorough Explanations and Demonstrations (Chana Randall RN) Outcome: Patient and Family will Verbalize Understanding of Condition, Treatment and Signs and Symptoms to Report (Chana Randall RN) Status: Ongoing (Chana Randall RN) Outcome: Patient will Identify Perceived Learning Needs and Express Motivation to Learn (Chana Randall RN) Status: Ongoing (Chana Randall RN) Outcome: Patient will Verbalize Understanding of Desired Content, and/or Performs Desired Skill Prior to Discharge (Chana Randall RN) Status: Ongoing (Chana Randall RN) Infection State: Risk For (Chana Randall RN) Related To: Surgical Procedures; Prolonged Labor or Induction; Invasive Procedures; Altered Tissue Integrity (Chana Randall RN) Goal(s): The Patient will be Free of Infection, Vital Signs Stable and Lab Work within Normal Parameters (Chana Randall RN) Interventions: Instruct and Reinforce Proper Handwashing, Hygiene, and Care Techniques to Patient and Family; Monitor Vital Signs; Monitor Patient for the Following Signs of Infection: Fever, Abdominal Tenderness, Unusual Discharge; Monitor Aminiotic Fluid, Urine and Lochia for Color and Odor; Observe Wounds, Incisions and Invasive Line Sites for Redness, Drainage and Edema; Assess IV Sites per Hospital Policy; Monitor Lab and Test Results and Notify Provider of Abnormal Findings; Assess Nutritional Status and Promote Good Nutrition (Chana Randall RN) Outcome: Patient will Remain Free of Infection (Chana Randall RN) Status: Ongoing (Chana Randall RN) Outcome: Infection will be Recognized Early to Allow for Prompt Treatment (Chnaa Randall RN) Status: Ongoing (Chana Randall RN) Outcome: Patient will have Vital Signs Within Expected Range (Chana Randall RN) Status: Ongoing (Chana Randall RN) Fluid Volume State: Risk For (Chana Randall RN) Related To: Surgical Procedures; Prolonged Labor or Induction; Hemorrhage; Disease Process; Anesthesia; Altered Renal Function (Chana Randall RN) Goal(s): Patient will Achieve and Maintain a Balanced Fluid Volume Status; Hemodynamically Stable (Chana Randall RN) Interventions: Monitor Vital Signs; Auscultate Breath Sounds; Monitor Patient for Skin Turgor, Mucous Membranes, Dry Skin, Weakness, Headaches and Confusion; Provide Oral Fluids as Ordered; Initiate and Maintain Intravenous Fluids as Ordered; Monitor Intake and Output as Indicated Per Patient Status; Accurately Measure Blood Loss; Monitor Lab and Test Results as Obtained and Notify Provider of Abnormal Findings; Monitor Patient's Weight (Chana Randall RN) Outcome: Patient will have Clear Lung Sounds (Chana Randall RN) Status: Ongoing (Chana Randall RN) Outcome: Patient will have Vital Signs within Expected Range (Chana Randall RN) Status: Ongoing (Chana Randall RN) Outcome: Urine Output will be within Expected Range (Chana Randall RN) Status: Ongoing (Chana Randall RN) Outcome: Patient will have Minimal Generalized or Upper Extremity Edema (Chana Randall RN) Status: Ongoing (Chana Randall RN) Injury State: Risk For (Chana Randall RN) Related To: Labor and Delivery Process; Gestational Hypertension or Eclampsia; Anesthesia; Altered Coagulation; Risk to Status; Uteroplacental Perfusion; Decreased Mobility; Hemorrhage, Placenta Previa and or Placental Abruption; Uterine Rupture (Chana Randall RN) Goal(s): Patient will Remain Free from Injury (Chana Randall RN) Interventions: Monitoring as per Hospital Protocol; Assess Neurological Status; Perform Risk Assessment of Patients with Induction and ; Perform Fall Risk Assessment and Prevention per Hospital Protocol; Perform DVT Risk Assessment and Prophylaxis per Hospital Protocol; Ensure that Oxygen, Suction, and Resuscitation Medications and Equipment are Readily Available; Confirm Patient ID Prior to Procedure(s) and Medication Administration per Hospital Policy (Chana Randall RN) Outcome: Successful Fall Risk Prevention (Chana Randall RN) Status: Ongoing (Chana Randall RN) Outcome: Patient will Deliver Infant without Adverse [place]ela (Chana Randall RN) Status: Ongoing (Chana Randall RN) Outcome: Patient's Neurological Status will Remain Stable (Chana Randall RN) Status: Ongoing (Chana Randall RN) Impaired Skin Integrity State: Risk For (Chana Randall RN) Related To: Vaginal Delivery; Surgical Procedures; Prolonged Bedrest; Altered Tissue Integrity; Invasive Procedures (Chaan Randall RN) Goal(s): Patient will Maintain Optimal Skin Integrity, Free of Breakdown, Injury or Infection (Chana Randall RN) Interventions: Complete Screening for Pressure Ulcer Risk and Initiate Protocol per Hospital Policy; Monitor Site of Skin Impairment for Color Changes, Redness, Swelling, Warmth, Pain or Other Signs of Infection; Encourage and Assist with Position Changes; Monitor Patient's Mobility Status; Provide Adequate Nutrition and Fluids; Teach Patient Appropriate Hygienic Care; Teach Patient/Family Skin Care Management (Chana Randall RN) Outcome: Patient will not have Evidence of Injury Such as Skin Breakdown, Scrapes, Cuts, or Bruising (Chana Randall RN) Status: Ongoing (Chana Randall RN) Outcome: Patient will Report Any Altered Sensation or Pain at Site of Skin Impairment (Chana Randall RN) Status: Ongoing (Chana Randall RN) Outcome: Patients Incisions and Wounds will be without Signs or Symptoms of Infection (Chana Randall RN) Status: Ongoing (Chana Randall RN) Outcome: Patient will Demonstrate Understanding of Plan to Heal Skin and Prevent Reinjury and Verbalize Risk Factors (Chana Randall RN) Status: Ongoing (Chana Randall RN)
[2016-05-30 06:19] LABS: HEMATOCRIT 27.3 % (36.0-47.0); HEMOGLOBIN 9.4 g/dL (12.0-15.5); HGB HCT DIFFERENCE 0.9; MEAN CORPUSCULAR HEMOGLOBIN 27.1 pg (27.0-33.4); MEAN CORPUSCULAR HGB CONC 34.2 g/dL (32.0-36.0); MEAN CORPUSCULAR VOLUME 79 fl (80-97); RED BLOOD COUNT 3.45 10^6/uL (3.72-5.28); WHITE BLOOD COUNT 9.1 10^3/uL (4.0-10.5)
[2016-05-30 09:04] VITALS: BP 107/59
--- NOTE | 2016-05-30 09:42 | PDOC PROGRESS REPORT ---
Subjective-OB Subjective: Post Delivery Day: 1 20 year old. Denies any needs at this time, pt would like to be d/c home this evening, tolerating diet, pain well controlled, lochia is stable, voiding without difficulty. Physical Exam (OB) Vital Signs: Temp Pulse Resp BP Pulse Ox 97.9 F 80 20 107/59 L 99 05/30/16 07:32 05/30/16 07:32 05/30/16 07:32 05/30/16 07:32 05/30/16 07:32 Intake & Output 05/29/16 05/30/16 05/31/16 06:59 06:59 06:59 Intake Total 300 Balance 300 Weight 73.85 kg - Lochia Lochia Amount: Small 10-25 ml Lochia Color: Rubra/Red - Abdomen Description: Soft, Round Hernia Present: No Fundal Description: Firm, Midline Fundal Height: u/u - u/2 Objective-Diagnostic Laboratory: 05/30/16 06:05 05/30/16 05/30/16 06:05 06:05 WBC 9.1 RBC 3.45 L Hgb 9.4 L Hct 27.3 L MCV 79 L MCH 27.1 MCHC 34.2 RDW 15.0 H Plt Count 187 Blood Type AB NEGATIVE Assessment and Plan(PN) - Assessment and Plan (1) Acute blood loss anemia Is this a current diagnosis for this admission?: YesPlan: ferrous sulfate iron rich diet (2) Delivery normal Is this a current diagnosis for this admission?: YesPlan: 4 w pp follow up at [facility] RN may cancel d/c if baby isn't discharged, then would anticipate d/c home tomorrow. - Time Spent with Patient Time with patient: Less than 15 minutes Critical Time spent with patient: Less than 15 minutes Medications reviewed and adjusted accordingly: Yes - Disposition Anticipated Discharge: Home Within: within 24 hours
--- NOTE | 2016-05-30 09:44 | PDOC DISCHARGE SUMMARY ---
Discharge Summary-OB Discharge Date: 05/30/16 - Final Diagnosis (1) Acute blood loss anemia Is this a current diagnosis for this admission?: Yes (2) Delivery normal Is this a current diagnosis for this admission?: Yes - Discharge Medication Home Medications: Vit #76/Iron,Carb/FA [Pnv 29-1 Tablet] 1 tab PO DAILY 05/29/16 Docusate Sodium [Colace 100 mg Capsule] 100 mg PO BID #60 capsule 05/30/16 Ferrous Sulfate [Feosol 325 mg Tablet] 325 mg PO BID #60 tablet 05/30/16 Ibuprofen [Motrin 800 mg Tablet] 800 mg PO Q8 #60 tablet 05/30/16 Gestational Age: 39.1 Reason(s) for Admission: Onset of Labor Procedures: NST Intrapartum Procedure(s): Spontaneous Vaginal Delivery - [place] Data Baby 1 Male at 1 minute: 9 at 5 minutes: 9 Weight: 3335 kg Home with Mother: Yes Complications: No - Diagnosis Test Laboratory: Temp Pulse Resp BP Pulse Ox 97.9 F 80 20 107/59 L 99 05/30/16 07:32 05/30/16 07:32 05/30/16 07:32 05/30/16 07:32 05/30/16 07:32 05/29/16 05/29/16 05/30/16 03:42 04:14 06:05 RBC 3.75 3.45 L Hgb 10.2 L 9.4 L Hct 30.2 L 27.3 L Urine Opiates Screen NEGATIVE - Discharge information/Instructions Discharge Activity: Activity As Tolerated, Pelvic Rest, No tub bath Discharge Diet: Regular Disposition: HOME, SELF-CARE Follow up with: [facility] in: 4, Weeks
[2016-05-30] MEDS: PRENATAL VITAMIN W-O CA NO5/FE FUMARATE/FA CAPSULE PO SCH (10:30)
[2016-05-30] MEDS: DOCUSATE SODIUM 100 MG CAPSULE PO SCH ×2 (10:30→17:09)
[2016-05-30] MEDS: FERROUS SULFATE 325 MG TABLET PO SCH ×2 (10:30→17:09)
[2016-05-30] MEDS: SENNOSIDES/DOCUSATE 8.6-50 MG 1 EACH TABLET PO SCH (10:30)
--- NOTE | 2016-05-31 06:09 | L&D General Admission ---
General Admit Datetime Report Generated by CPN: 05/31/2016 06:00 INFORMATION Patient Age: 20 (04/27/2016 12:09:QS system process) EDC: 06/04/2016 00:00 (05/29/2016 03:32:Chana Randall RN) : 1 (05/29/2016 03:32:Yue Ring, RN) Para: 0 (05/29/2016 03:32:Yue Ring, RN) Term: 0 (05/29/2016 03:32:Yue Ring, RN) : 0 (05/29/2016 03:32:Yue Ring, RN) Spontaneous Abortions: 0 (05/29/2016 03:32:Yue Ring, RN) Induced Abortions: 0 (05/29/2016 03:32:Yue Ring, RN) Livin (05/29/2016 03:32:Yue Ring, RN) Cesareans: 0 (05/29/2016 03:32:Yue Ring, RN) VBACs: 0 (05/29/2016 03:32:Yue Ring, RN) Ectopic: 0 (05/29/2016 03:32:Yue Ochoa RN) Multiple Births: 0 (05/29/2016 03:32:Yue Ochoa RN) Baby, Number in Womb: 1 (05/29/2016 03:32:Yue Ochoa RN) CARE Primary Finishing Technician: [facility] (05/29/2016 03:32:Chana Randall RN) Adequate Care: Yes (05/29/2016 03:32:Yue Ochoa RN) Height (in): 64 (05/30/2016 12:08:QS system process) ALLERGIES Medication Allergy: No (05/29/2016 03:32:Yue Ochoa RN) Medication Allergies: pineapple (05/29/2016) (05/29/2016 04:38:QS system process) Latex Allergy: No Latex Allergies (05/29/2016 03:32:Yue Ochoa RN) Food Allergies: pineapple (05/29/2016 03:32:Jenni Diaz RN) COMMUNICATION Primary Language: Italian (05/29/2016 03:32:Yue Ochoa RN) Medical Tx Preferred Language: Italian (05/29/2016 03:32:Yue Ochoa RN) Italian Communication Ability: Speaks Italian; Reads Italian (05/29/2016 03:32:Jenni Diaz RN) Communication Barrier(s): None (05/29/2016 03:32:Jenni Diaz RN) DEMOGRAPHICS Address: [address] [place] [id number] (04/27/2016 12:09:QS system process) Zipcode: [address] (04/27/2016 12:09:QS system process) Home (04/27/2016 12:09:QS system process) Work (04/27/2016 12:09:QS system process) SSN: [id number] (04/27/2016 12:09:QS system process) Next of Kin Name: HAYES DIETRICH (04/27/2016 12:09:QS system process) Next of Kin (04/27/2016 12:09:QS system process) Next of Kin Relationship: OR (04/27/2016 12:09:QS system process) Date of : 1995 (04/27/2016 12:09:QS system process) Marital Status: Single (04/27/2016 12:09:QS system process) Sex: Female (04/27/2016 12:09:QS system process) Race: (04/27/2016 12:09:QS system process) Ethnicity: Non- or (04/27/2016 12:09:QS system process) Baptist: None (04/27/2016 12:09:QS system process) DRUG AND ALCOHOL USE Alcohol: No (05/29/2016 03:32:Uye Ring, RN) Cigarettes: Never Smoker. [id number] (05/29/2016 03:32:Yue Ring, RN) Marijuana: No (05/29/2016 03:32:Yue Ring, RN) Cocaine: No (05/29/2016 03:32:Yue Ring, RN) Other Illicit Drugs: No (05/29/2016 03:32:Yue Ring, RN) VACCINE HISTORY Influenza Vaccine: No (05/29/2016 03:32:Yue Ochoa RN) Pneumococcal Vaccine: No (05/29/2016 03:32:Yue Ochoa RN) Tetanus Vaccine: Yes (05/29/2016 03:32:Yue Ochoa RN) Tdap Vaccine: Yes (05/29/2016 03:32:Yue Ochoa RN) Tdap Date: 2015 (05/29/2016 03:32:Yue Ochoa RN) Hepatitis B Vaccine: Yes (05/29/2016 03:32:Yue Ochoa RN) Internal Audit Senior Manager: [facility] (05/29/2016 03:32:Yue Ochoa RN) Feeding Preference: Breast (05/29/2016 03:32:Yue Ochoa RN) Benefit of Breast Feed Discussed: Yes (05/29/2016 03:32:Yue Ochoa RN) Circumcision: Yes (05/29/2016 03:32:Yue Ochoa RN) Classes Attended: No (05/29/2016 03:32:Yue Ochoa RN) Tubal Ligation: No (05/29/2016 03:32:Yue Ochoa RN) Tubal Authorization Signed: N/A (05/29/2016 03:32:Yue Ochoa RN) Consent: N/A (05/29/2016 03:32:Yue Ochoa RN) Consent Signed: N/A (05/29/2016 03:32:Yue Ochoa RN) Pain Management Plans: Epidural (05/29/2016 03:32:Yue Ochoa RN) Plans for Labor and Delivery: None (05/29/2016 03:32:Yue Ochoa RN) Support Person: Vj (05/29/2016 03:32:Yue Ochoa RN) Support Person Relationship: Significant Other (05/29/2016 03:32:Yue Ochoa RN) Cultural/Spritual Practice: No (05/29/2016 03:32:Yue Ochoa RN) Spir/Cult Dietary Needs: No (05/29/2016 03:32:Yue Ochoa RN) LIVING SITUATION/DISCHARGE PLAN Living Arrangements: House (05/29/2016 03:32:Yue Ochoa RN) Adequate Access to:: Electric; Heat; Refrigeration; Plumbing/Running water; Phone; Transportation (05/29/2016 03:32:Yue Ochoa RN) WIC Program: No (05/29/2016 03:32:Yue Ochoa RN) Discharge Analytical Research Program Manager Person: Vj (05/29/2016 03:32:Yue Ochoa RN) Person to Help after Discharge: Vj (05/29/2016 03:32:Yue Ochoa RN) Currently Using Commun Resources: Yes (05/29/2016 03:32:Yue Ochoa RN) Specify Current Resource Used: Medicaid (05/29/2016 03:32:Yue Ochoa RN) Outside Agency/Revenue Cycle Analyst: No (05/29/2016 03:32:Yue Ochoa RN) Car Seat for Discharge: Yes (05/29/2016 03:32:Yue Ochoa RN) Adoption Requested: No (05/29/2016 03:32:Yue Ochoa RN) Pt Contact w/infant Post : N/A (05/29/2016 03:32:Yue Ochoa RN) LABS Blood Type: AB Negative (05/29/2016 03:32:Marichuy Rios RN) Antibody Screen: Negative (05/29/2016 03:32:Yue Ochoa RN) Hemoglobin: 9.4 L (05/30/2016 06:05:QS system process) Hematocrit: 27.3 L (05/30/2016 06:05:QS system process) MCV: 79 L (05/30/2016 06:05:QS system process) Group Beta Strep: negative (05/29/2016 03:32:Marichuy Rios RN) Gonorrhea: Negative (05/29/2016 03:32:Marichuy Rios RN) Chlamydia: Negative (05/29/2016 03:32:Marichuy Rios RN) RPR/VDRL: Nonreactive (05/29/2016 03:32:Marichuy Rios RN) HIV Results: negative (Annotations: Data stored by [facility] on behalf of user) (05/29/2016 03:32:Jenni Diaz RN) Hepatitis B: Negative (05/29/2016 03:32:Jenni Diaz RN) Rubella: Immune (05/29/2016 03:32:Jenni Diaz RN) OB/PREVIOUS HISTORY Current Procedures: Ultrasound; NST (05/29/2016 03:32:Jenni Diaz RN) History of Previous : No (05/29/2016 03:32:Yue Ochoa RN) History of Gestational Diabetes: No (05/29/2016 03:32:Yue Ochoa RN) History of PIH: No (05/29/2016 03:32:Yue Ochoa RN) History of Incompetent Cervix: No (05/29/2016 03:32:Yue Ochoa RN) History of Placenta Previa/Abrup: No (05/29/2016 03:32:Yue Ochoa RN) History of Macrosomia: No (05/29/2016 03:32:Yue Ochoa RN) History of IUGR: No (05/29/2016 03:32:Yue Ochoa RN) History of Hemorrhage: No (05/29/2016 03:32:Yue Ochoa RN) History of Loss/Stillborn: No (05/29/2016 03:32:Yue Ochoa RN) History of : No (05/29/2016 03:32:Yue Ochoa RN) History of D (Rh) Sensitization: No (05/29/2016 03:32:Yue Ochoa RN) History Recurrent Loss/Stillborn: No (05/29/2016 03:32:Yue Ochoa RN) History Depression/PP Depression: No (05/29/2016 03:32:Yue Ochoa RN) History of Uterine Anomaly/PRAFUL: No (05/29/2016 03:32:Yue Ochoa RN) History of Infertility: No (05/29/2016 03:32:Yue Ochoa RN) History of ART Treatment: No (05/29/2016 03:32:Yue Ochoa RN) History of PRAFUL: No (05/29/2016 03:32:Yue Ochoa RN) Comments Obstetrical History: G1: current (05/29/2016 03:32:Yue Ochoa RN) MEDICAL HISTORY Med Hx Diabetes: No (05/29/2016 03:32:uYe Ochoa RN) Med Hx Hypertension: No (05/29/2016 03:32:Yue Ochoa RN) Med Hx Heart Disease: No (05/29/2016 03:32:Yue Ochoa RN) Med Hx Autoimmune Disorder: No (05/29/2016 03:32:Yue Ochoa RN) Med Hx Kidney Disease/UTI: No (05/29/2016 03:32:Yue Ochoa RN) Med Hx Neurologic/Epilepsy: No (05/29/2016 03:32:Yue Ochoa RN) Med Hx Psychiatric Disorders: No (05/29/2016 03:32:Yue Ochoa RN) Med Hx Hepatitis/Liver Disease: No (05/29/2016 03:32:Yue Ochoa RN) Med Hx Varicosities/Phlebitis: No (05/29/2016 03:32:Yue Ochoa RN) Med Hx Thyroid Dysfunction: No (05/29/2016 03:32:Yue Ochoa RN) Med Hx Trauma/Violence: No (05/29/2016 03:32:Yue Ochoa RN) Med Hx Blood Transfusion: No (05/29/2016 03:32:Yue Ochoa RN) Med Hx Pulmonary (Asthma,TB): No (05/29/2016 03:32:Yue Ochoa RN) Med Hx Breast: No (05/29/2016 03:32:Yue Ochoa RN) Med Hx CYBER OPERATOR Surgery: No (05/29/2016 03:32:Yue Ochoa RN) Med Hx Hospitalization/Surgery: No (05/29/2016 03:32:Yue Ochoa RN) Med Hx Anesthetic Complications: No (05/29/2016 03:32:Yue Ochoa RN) Med Hx Abnormal Pap Smear: Yes (05/29/2016 03:32:Yue Ochoa RN) Other Medical Diseases: No (05/29/2016 03:32:Yue Ochoa RN) Med Hx Significant Family Hx: No (05/29/2016 03:32:Yue Ochoa RN) INFECTIOUS HISTORY Inf Hx Gonorrhea: Yes (05/29/2016 03:32:Jenni Diaz RN) Inf Hx Chlamydia: No (05/29/2016 03:32:Yue Ochoa RN) Inf Hx Syphilis: No (05/29/2016 03:32:Yue Ochoa RN) Inf Hx HIV/AIDS: No (05/29/2016 03:32:Yue Ochoa RN) Inf Hx Human Papilloma Virus: No (05/29/2016 03:32:Yue Ochoa RN) Inf Hx Pt/Partner Genital Herpes: No (05/29/2016 03:32:Yue Ochoa RN) Inf Hx Tuberculosis/Exposure: No (05/29/2016 03:32:Yue Ochoa RN) Inf Hx Hepatitis B,C: No (05/29/2016 03:32:Yue Ochoa RN) Inf Hx Rash or Viral Illness: No (05/29/2016 03:32:Yue Ochoa RN) Details of Infectious Hx: 2015 (05/29/2016 03:32:Yue Ochoa RN) GENETIC HISTORY Gen Hx Age >=35 at [place]: Yes (05/29/2016 03:32:Yue Ochoa RN) Gen Hx Thalassemia: No (05/29/2016 03:32:Yue Ochoa RN) Gen Hx Congenital Heart Defect: No (05/29/2016 03:32:Yue Ochoa RN) Gen Hx Neural Tube Defect: No (05/29/2016 03:32:Yue Ochoa RN) Gen Hx Down's Syndrome: No (05/29/2016 03:32:Yue Ochoa RN) Gen Hx Yovany-Sachs: No (05/29/2016 03:32:Yue Ochoa RN) Gen Hx Jaspreet: No (05/29/2016 03:32:Yue Ochoa RN) Gen Hx Familial Dysautonomia: No (05/29/2016 03:32:Yue Ochoa RN) Gen Hx Sickle Cell Disease/Trait: No (05/29/2016 03:32:Yue Ochoa RN) Gen Hx Hemophilia/Blood Disorder: No (05/29/2016 03:32:Yue Ochoa RN) Gen Hx Muscular Dystrophy: No (05/29/2016 03:32:Yue Ochoa RN) Gen Hx Cystic Fibrosis: No (05/29/2016 03:32:Yue Ochoa RN) Gen Hx Huntingtons Chorea: No (05/29/2016 03:32:Yue Ochoa RN) Gen Hx Mental Retardation/Autism: No (05/29/2016 03:32:Yue Ochoa RN) Gen Hx Tested for Fragile X: No (05/29/2016 03:32:Yue Ochoa RN) Gen Hx Other Inher/Chromosomal: No (05/29/2016 03:32:Yue Ochoa RN) Gen Hx Maternal Metabolic DO: No (05/29/2016 03:32:Yue Ochoa RN) Gen Hx Pt Father or FOB Defect: No (05/29/2016 03:32:Yue Ochoa RN) Gen Hx Other Genetic History: No (05/29/2016 03:32:Yue Ochoa RN) Gen Hx Drugs/Meds since LMP: Yes (05/29/2016 03:32:Yue Ochoa RN) Gen Hx Medications: PNV, iron, cephalexin (05/29/2016 03:32:Yue Ochoa RN) Details of Genetic History: FOB is 36 years old (05/29/2016 03:32:Yue Ochoa RN)
--- NOTE | 2016-06-01 06:09 | L&D General Admission ---
General Admit Datetime Report Generated by CPN: 06/01/2016 06:00 INFORMATION Patient Age: 20 (04/27/2016 12:09:QS system process) EDC: 06/04/2016 00:00 (05/29/2016 03:32:Chana Randall RN) : 1 (05/29/2016 03:32:Yue Ring, RN) Para: 0 (05/29/2016 03:32:Yue Ring, RN) Term: 0 (05/29/2016 03:32:Yue Ring, RN) : 0 (05/29/2016 03:32:Yue Ring, RN) Spontaneous Abortions: 0 (05/29/2016 03:32:Yue Ring, RN) Induced Abortions: 0 (05/29/2016 03:32:Yue Ring, RN) Livin (05/29/2016 03:32:Yue Ring, RN) Cesareans: 0 (05/29/2016 03:32:Yue Ring, RN) VBACs: 0 (05/29/2016 03:32:Yue Ring, RN) Ectopic: 0 (05/29/2016 03:32:Yue Ochoa RN) Multiple Births: 0 (05/29/2016 03:32:Yue Ochoa RN) Baby, Number in Womb: 1 (05/29/2016 03:32:Yue Ochoa RN) CARE [facility] (05/29/2016 03:32:Chana Randall RN) Adequate Care: Yes (05/29/2016 03:32:Yue Ochoa RN) Height (in): 64 (05/30/2016 12:08:QS system process) ALLERGIES Medication Allergy: No (05/29/2016 03:32:Yue Ochoa RN) Medication Allergies: pineapple (05/29/2016) (05/29/2016 04:38:QS system process) Latex Allergy: No Latex Allergies (05/29/2016 03:32:Yue Ochoa RN) Food Allergies: pineapple (05/29/2016 03:32:Jenni Diaz RN) COMMUNICATION Primary Language: Dominican (05/29/2016 03:32:Yue Ochoa RN) Medical Tx Preferred Language: Dominican (05/29/2016 03:32:Yue Ochoa RN) Dominican Communication Ability: Speaks Dominican; Reads Dominican (05/29/2016 03:32:Jenni Diaz RN) Communication Barrier(s): None (05/29/2016 03:32:Jenni Diaz RN) DEMOGRAPHICS Address: [address] [place] [address] (04/27/2016 12:09:QS system process) Zipcode: [id number] (04/27/2016 12:09:QS system process) Home (04/27/2016 12:09:QS system process) Work (04/27/2016 12:09:QS system process) SSN: [id number] (04/27/2016 12:09:QS system process) Next of Kin Name: HAYES DIETRICH (04/27/2016 12:09:QS system process) Next of Kin (04/27/2016 12:09:QS system process) Next of Kin Relationship: OR (04/27/2016 12:09:QS system process) Date of : 1995 (04/27/2016 12:09:QS system process) Marital Status: Single (04/27/2016 12:09:QS system process) Sex: Female (04/27/2016 12:09:QS system process) Race: (04/27/2016 12:09:QS system process) Ethnicity: Non- or (04/27/2016 12:09:QS system process) Druze: None (04/27/2016 12:09:QS system process) DRUG AND ALCOHOL USE Alcohol: No (05/29/2016 03:32:Yue Ring, RN) Cigarettes: Never Smoker. [id number] (05/29/2016 03:32:Yue Ring, RN) Marijuana: No (05/29/2016 03:32:Yue Ring, RN) Cocaine: No (05/29/2016 03:32:Yue Ring, RN) Other Illicit Drugs: No (05/29/2016 03:32:Yue Ring, RN) VACCINE HISTORY Influenza Vaccine: No (05/29/2016 03:32:Yue Ochoa RN) Pneumococcal Vaccine: No (05/29/2016 03:32:Yue Ochoa RN) Tetanus Vaccine: Yes (05/29/2016 03:32:Yue Ochoa RN) Tdap Vaccine: Yes (05/29/2016 03:32:Yue Ochoa RN) Tdap Date: 2015 (05/29/2016 03:32:Yue Ochoa RN) Hepatitis B Vaccine: Yes (05/29/2016 03:32:Yue Ochoa RN) Human Resources Benefits Assistant: [facility] (05/29/2016 03:32:Yue Ochoa RN) Feeding Preference: Breast (05/29/2016 03:32:Yue Ochoa RN) Benefit of Breast Feed Discussed: Yes (05/29/2016 03:32:Yue Ochoa RN) Circumcision: Yes (05/29/2016 03:32:Yue Ochoa RN) Classes Attended: No (05/29/2016 03:32:Yue Ochoa RN) Tubal Ligation: No (05/29/2016 03:32:Yue Ochoa RN) Tubal Authorization Signed: N/A (05/29/2016 03:32:Yue Ochoa RN) Consent: N/A (05/29/2016 03:32:Yue Ochoa RN) Consent Signed: N/A (05/29/2016 03:32:Yue Ochoa RN) Pain Management Plans: Epidural (05/29/2016 03:32:Yue Ochoa RN) Plans for Labor and Delivery: None (05/29/2016 03:32:Yue Ochoa RN) Support Person: Vj (05/29/2016 03:32:Yue Ochoa RN) Support Person Relationship: Significant Other (05/29/2016 03:32:Yue Ochoa RN) Cultural/Spritual Practice: No (05/29/2016 03:32:Yue Ochoa RN) Spir/Cult Dietary Needs: No (05/29/2016 03:32:Yue Ochoa RN) LIVING SITUATION/DISCHARGE PLAN Living Arrangements: House (05/29/2016 03:32:Yue Ochoa RN) Adequate Access to:: Electric; Heat; Refrigeration; Plumbing/Running water; Phone; Transportation (05/29/2016 03:32:Yue Ochoa RN) WIC Program: No (05/29/2016 03:32:Yue Ochoa RN) Discharge Art Conservator Person: Vj (05/29/2016 03:32:Yue Ochoa RN) Person to Help after Discharge: Vj (05/29/2016 03:32:Yue Ochoa RN) Currently Using Commun Resources: Yes (05/29/2016 03:32:Yue Ochoa RN) Specify Current Resource Used: Medicaid (05/29/2016 03:32:Yue Ochoa RN) Outside Agency/Marketing Production Coordinator: No (05/29/2016 03:32:Yue Ochoa RN) Car Seat for Discharge: Yes (05/29/2016 03:32:Yue Ochoa RN) Adoption Requested: No (05/29/2016 03:32:Yue Ochoa RN) Pt Contact w/infant Post : N/A (05/29/2016 03:32:Yue Ochoa RN) LABS Blood Type: AB Negative (05/29/2016 03:32:Marichuy Rios RN) Antibody Screen: Negative (05/29/2016 03:32:Yue Ochoa RN) Hemoglobin: 9.4 L (05/30/2016 06:05:QS system process) Hematocrit: 27.3 L (05/30/2016 06:05:QS system process) MCV: 79 L (05/30/2016 06:05:QS system process) Group Beta Strep: negative (05/29/2016 03:32:Marichuy Rios RN) Gonorrhea: Negative (05/29/2016 03:32:Marichuy Rios RN) Chlamydia: Negative (05/29/2016 03:32:Marichuy Rios RN) RPR/VDRL: Nonreactive (05/29/2016 03:32:Marichuy Rios RN) HIV Results: negative (Annotations: Data stored by [facility] on behalf of user) (05/29/2016 03:32:Jenni Diaz RN) Hepatitis B: Negative (05/29/2016 03:32:Jenni Diaz RN) Rubella: Immune (05/29/2016 03:32:Jenni Diaz RN) OB/PREVIOUS HISTORY Current Procedures: Ultrasound; NST (05/29/2016 03:32:Jenni Diaz RN) History of Previous : No (05/29/2016 03:32:Yue Ochoa RN) History of Gestational Diabetes: No (05/29/2016 03:32:Yue Ochoa RN) History of PIH: No (05/29/2016 03:32:Yue Ochoa RN) History of Incompetent Cervix: No (05/29/2016 03:32:Yue Ochoa RN) History of Placenta Previa/Abrup: No (05/29/2016 03:32:Yue Ochoa RN) History of Macrosomia: No (05/29/2016 03:32:Yue Ochoa RN) History of IUGR: No (05/29/2016 03:32:Yue Ochoa RN) History of Hemorrhage: No (05/29/2016 03:32:Yue Ochoa RN) History of Loss/Stillborn: No (05/29/2016 03:32:Yue Ochoa RN) History of : No (05/29/2016 03:32:Yue Ochoa RN) History of D (Rh) Sensitization: No (05/29/2016 03:32:Yue Ochoa RN) History Recurrent Loss/Stillborn: No (05/29/2016 03:32:Yue Ochoa RN) History Depression/PP Depression: No (05/29/2016 03:32:Yue Ochoa RN) History of Uterine Anomaly/PRAFUL: No (05/29/2016 03:32:Yue Ochoa RN) History of Infertility: No (05/29/2016 03:32:Yue Ochoa RN) History of ART Treatment: No (05/29/2016 03:32:Yue Ochoa RN) History of PRAFUL: No (05/29/2016 03:32:Yue Ochoa RN) Comments Obstetrical History: G1: current (05/29/2016 03:32:Yue Ochoa RN) MEDICAL HISTORY Med Hx Diabetes: No (05/29/2016 03:32:Yue Ochoa RN) Med Hx Hypertension: No (05/29/2016 03:32:Yue Ochoa RN) Med Hx Heart Disease: No (05/29/2016 03:32:Yue Ochoa RN) Med Hx Autoimmune Disorder: No (05/29/2016 03:32:Yue Ochoa RN) Med Hx Kidney Disease/UTI: No (05/29/2016 03:32:Yue Ochoa RN) Med Hx Neurologic/Epilepsy: No (05/29/2016 03:32:Yue Ochoa RN) Med Hx Psychiatric Disorders: No (05/29/2016 03:32:Yue Ochoa RN) Med Hx Hepatitis/Liver Disease: No (05/29/2016 03:32:Yue Ochoa RN) Med Hx Varicosities/Phlebitis: No (05/29/2016 03:32:Yue Ochoa RN) Med Hx Thyroid Dysfunction: No (05/29/2016 03:32:Yue Ochoa RN) Med Hx Trauma/Violence: No (05/29/2016 03:32:Yue Ochoa RN) Med Hx Blood Transfusion: No (05/29/2016 03:32:Yue Ochoa RN) Med Hx Pulmonary (Asthma,TB): No (05/29/2016 03:32:Yue Ochoa RN) Med Hx Breast: No (05/29/2016 03:32:Yue Ochoa RN) Med Hx STAIN WIPER Surgery: No (05/29/2016 03:32:Yue Ochoa RN) Med Hx Hospitalization/Surgery: No (05/29/2016 03:32:Yue Ochoa RN) Med Hx Anesthetic Complications: No (05/29/2016 03:32:Yue Ochoa RN) Med Hx Abnormal Pap Smear: Yes (05/29/2016 03:32:Yue Ochoa RN) Other Medical Diseases: No (05/29/2016 03:32:Yue Ochoa RN) Med Hx Significant Family Hx: No (05/29/2016 03:32:Yue Ochoa RN) INFECTIOUS HISTORY Inf Hx Gonorrhea: Yes (05/29/2016 03:32:Jenni Diaz RN) Inf Hx Chlamydia: No (05/29/2016 03:32:Yue Ochoa RN) Inf Hx Syphilis: No (05/29/2016 03:32:Yue Ochoa RN) Inf Hx HIV/AIDS: No (05/29/2016 03:32:Yue Ochoa RN) Inf Hx Human Papilloma Virus: No (05/29/2016 03:32:Yue Ochoa RN) Inf Hx Pt/Partner Genital Herpes: No (05/29/2016 03:32:Yue Ochoa RN) Inf Hx Tuberculosis/Exposure: No (05/29/2016 03:32:Yue Ochoa RN) Inf Hx Hepatitis B,C: No (05/29/2016 03:32:Yue Ochoa RN) Inf Hx Rash or Viral Illness: No (05/29/2016 03:32:Yue Ochoa RN) Details of Infectious Hx: 2015 (05/29/2016 03:32:Yue Ochoa RN) GENETIC HISTORY Gen Hx Age >=35 at TEX: Yes (05/29/2016 03:32:Yue Ochoa RN) Gen Hx Thalassemia: No (05/29/2016 03:32:Yue Ochoa RN) Gen Hx Congenital Heart Defect: No (05/29/2016 03:32:Yue Ochoa RN) Gen Hx Neural Tube Defect: No (05/29/2016 03:32:Yue Ochoa RN) Gen Hx Down's Syndrome: No (05/29/2016 03:32:Yue Ochoa RN) Gen Hx Yovany-Sachs: No (05/29/2016 03:32:Yue Ochoa RN) Gen Hx Jaspreet: No (05/29/2016 03:32:Yue Ochoa RN) Gen Hx Familial Dysautonomia: No (05/29/2016 03:32:Yue Ochoa RN) Gen Hx Sickle Cell Disease/Trait: No (05/29/2016 03:32:Yue Ochoa RN) Gen Hx Hemophilia/Blood Disorder: No (05/29/2016 03:32:Yue Ochoa RN) Gen Hx Muscular Dystrophy: No (05/29/2016 03:32:Yue Ochoa RN) Gen Hx Cystic Fibrosis: No (05/29/2016 03:32:Yue Ochoa RN) Gen Hx Huntingtons Chorea: No (05/29/2016 03:32:Yue Ochoa RN) Gen Hx Mental Retardation/Autism: No (05/29/2016 03:32:Yue Ochoa RN) Gen Hx Tested for Fragile X: No (05/29/2016 03:32:Yue Ochoa RN) Gen Hx Other Inher/Chromosomal: No (05/29/2016 03:32:Yue Ochoa RN) Gen Hx Maternal Metabolic DO: No (05/29/2016 03:32:Yue Ochoa RN) Gen Hx Pt Father or FOB Defect: No (05/29/2016 03:32:Yue Ochoa RN) Gen Hx Other Genetic History: No (05/29/2016 03:32:Yue Ochoa RN) Gen Hx Drugs/Meds since LMP: Yes (05/29/2016 03:32:Yue Ochoa RN) Gen Hx Medications: PNV, iron, cephalexin (05/29/2016 03:32:Yue Ochoa RN) Details of Genetic History: FOB is 36 years old (05/29/2016 03:32:Yue Ochoa RN)
--- NOTE | 2016-06-02 06:12 | L&D General Admission ---
General Admit Datetime Report Generated by CPN: 06/02/2016 06:00 INFORMATION Patient Age: 20 (04/27/2016 12:09:QS system process) EDC: 06/04/2016 00:00 (05/29/2016 03:32:Chana Randall RN) : 1 (05/29/2016 03:32:Yue Ring, RN) Para: 0 (05/29/2016 03:32:Yue Ring, RN) Term: 0 (05/29/2016 03:32:Yue Ring, RN) : 0 (05/29/2016 03:32:Yue Ring, RN) Spontaneous Abortions: 0 (05/29/2016 03:32:Yue Ring, RN) Induced Abortions: 0 (05/29/2016 03:32:Yue Ring, RN) Livin (05/29/2016 03:32:Yue Ring, RN) Cesareans: 0 (05/29/2016 03:32:Yue Ring, RN) VBACs: 0 (05/29/2016 03:32:Yue Ring, RN) Ectopic: 0 (05/29/2016 03:32:Yue Ochoa RN) Multiple Births: 0 (05/29/2016 03:32:Yue Ochoa RN) Baby, Number in Womb: 1 (05/29/2016 03:32:Yue Ochoa RN) CARE Primary Afternoon [facility]ys[facility] (05/29/2016 03:32:Chana Randall RN) Adequate Care: Yes (05/29/2016 03:32:Yue Ochoa RN) Height (in): 64 (05/30/2016 12:08:QS system process) ALLERGIES Medication Allergy: No (05/29/2016 03:32:Yue Ochoa RN) Medication Allergies: pineapple (05/29/2016) (05/29/2016 04:38:QS system process) Latex Allergy: No Latex Allergies (05/29/2016 03:32:Yue Ochoa RN) Food Allergies: pineapple (05/29/2016 03:32:Jenni Diaz RN) COMMUNICATION Primary Language: Wallisian (05/29/2016 03:32:Yue Ochoa RN) Medical Tx Preferred Language: Wallisian (05/29/2016 03:32:Yue Ochoa RN) Wallisian Communication Ability: Speaks Wallisian; Reads Wallisian (05/29/2016 03:32:eJnni Diaz RN) Communication Barrier(s): None (05/29/2016 03:32:Jenni Diaz RN) DEMOGRAPHICS Address: [address] [place] [id number] (04/27/2016 12:09:QS system process) Zipcode: [address] (04/27/2016 12:09:QS system process) Home (04/27/2016 12:09:QS system process) Work (04/27/2016 12:09:QS system process) SSN: [id number] (04/27/2016 12:09:QS system process) Next of Kin Name: HAYES DIETRICH (04/27/2016 12:09:QS system process) Next of Kin (04/27/2016 12:09:QS system process) Next of Kin Relationship: OR (04/27/2016 12:09:QS system process) Date of : 1995 (04/27/2016 12:09:QS system process) Marital Status: Single (04/27/2016 12:09:QS system process) Sex: Female (04/27/2016 12:09:QS system process) Race: (04/27/2016 12:09:QS system process) Ethnicity: Non- or (04/27/2016 12:09:QS system process) Uatsdin: None (04/27/2016 12:09:QS system process) DRUG AND ALCOHOL USE Alcohol: No (05/29/2016 03:32:Yue Ring, RN) Cigarettes: Never Smoker. [id number] (05/29/2016 03:32:Yue Ring, RN) Marijuana: No (05/29/2016 03:32:Yue Ring, RN) Cocaine: No (05/29/2016 03:32:Yue Ring, RN) Other Illicit Drugs: No (05/29/2016 03:32:Yue Ring, RN) VACCINE HISTORY Influenza Vaccine: No (05/29/2016 03:32:Yue Ochoa RN) Pneumococcal Vaccine: No (05/29/2016 03:32:Yue Ochoa RN) Tetanus Vaccine: Yes (05/29/2016 03:32:Yue Ochoa RN) Tdap Vaccine: Yes (05/29/2016 03:32:Yue Ochoa RN) Tdap Date: 2015 (05/29/2016 03:32:Yue Ochoa RN) Hepatitis B Vaccine: Yes (05/29/2016 03:32:Yue Ochoa RN) Hard Metals Hand Engraver: [facility] (05/29/2016 03:32:Yue Ochoa RN) Feeding Preference: Breast (05/29/2016 03:32:Yue Ochoa RN) Benefit of Breast Feed Discussed: Yes (05/29/2016 03:32:Yue Ochoa RN) Circumcision: Yes (05/29/2016 03:32:Yue Ochoa RN) Classes Attended: No (05/29/2016 03:32:Yue Ochoa RN) Tubal Ligation: No (05/29/2016 03:32:Yue Ochoa RN) Tubal Authorization Signed: N/A (05/29/2016 03:32:Yue Ochoa RN) Consent: N/A (05/29/2016 03:32:Yue Ochoa RN) Consent Signed: N/A (05/29/2016 03:32:Yue Ochoa RN) Pain Management Plans: Epidural (05/29/2016 03:32:Yue Ochoa RN) Plans for Labor and Delivery: None (05/29/2016 03:32:Yue Ochoa RN) Support Person: Vj (05/29/2016 03:32:Yue Ochoa RN) Support Person Relationship: Significant Other (05/29/2016 03:32:Yue Ochoa RN) Cultural/Spritual Practice: No (05/29/2016 03:32:Yue Ochoa RN) Spir/Cult Dietary Needs: No (05/29/2016 03:32:Yue Ochoa RN) LIVING SITUATION/DISCHARGE PLAN Living Arrangements: House (05/29/2016 03:32:Yue Ochoa RN) Adequate Access to:: Electric; Heat; Refrigeration; Plumbing/Running water; Phone; Transportation (05/29/2016 03:32:Yue Ochoa RN) WIC Program: No (05/29/2016 03:32:Yue Ochoa RN) Discharge 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 And Polishing Supervisor Person: Vj (05/29/2016 03:32:Yue Ochoa RN) Person to Help after Discharge: Vj (05/29/2016 03:32:Yue Ochoa RN) Currently Using Commun Resources: Yes (05/29/2016 03:32:Yue Ochoa RN) Specify Current Resource Used: Medicaid (05/29/2016 03:32:Yue Ochoa RN) Outside Agency/Media Production Operator: No (05/29/2016 03:32:Yue Ochoa RN) Car Seat for Discharge: Yes (05/29/2016 03:32:Yue Ochoa RN) Adoption Requested: No (05/29/2016 03:32:Yue Ochoa RN) Pt Contact w/infant Post : N/A (05/29/2016 03:32:Yue Ochoa RN) LABS Blood Type: AB Negative (05/29/2016 03:32:Marichuy Rios RN) Antibody Screen: Negative (05/29/2016 03:32:Yue Ochoa RN) Hemoglobin: 9.4 L (05/30/2016 06:05:QS system process) Hematocrit: 27.3 L (05/30/2016 06:05:QS system process) MCV: 79 L (05/30/2016 06:05:QS system process) Group Beta Strep: negative (05/29/2016 03:32:Marichuy Rios RN) Gonorrhea: Negative (05/29/2016 03:32:Marichuy Rios RN) Chlamydia: Negative (05/29/2016 03:32:Marichuy Rios RN) RPR/VDRL: Nonreactive (05/29/2016 03:32:Marichuy Rios RN) HIV Results: negative (Annotations: Data stored by [facility] on behalf of user) (05/29/2016 03:32:Jenni Diaz RN) Hepatitis B: Negative (05/29/2016 03:32:Jenni Diaz RN) Rubella: Immune (05/29/2016 03:32:Jenni Diaz RN) OB/PREVIOUS HISTORY Current Procedures: Ultrasound; NST (05/29/2016 03:32:Jenni Diaz RN) History of Previous : No (05/29/2016 03:32:Yue Ochoa RN) History of Gestational Diabetes: No (05/29/2016 03:32:Yue Ochoa RN) History of PIH: No (05/29/2016 03:32:Yue Ochoa RN) History of Incompetent Cervix: No (05/29/2016 03:32:Yue Ochoa RN) History of Placenta Previa/Abrup: No (05/29/2016 03:32:Yue Ochoa RN) History of Macrosomia: No (05/29/2016 03:32:Yue Ochoa RN) History of IUGR: No (05/29/2016 03:32:Yue Ochoa RN) History of Hemorrhage: No (05/29/2016 03:32:Yue Ochoa RN) History of Loss/Stillborn: No (05/29/2016 03:32:Yue Ochoa RN) History of : No (05/29/2016 03:32:Yue Ochoa RN) History of D (Rh) Sensitization: No (05/29/2016 03:32:Yue Ochoa RN) History Recurrent Loss/Stillborn: No (05/29/2016 03:32:Yue Ochoa RN) History Depression/PP Depression: No (05/29/2016 03:32:Yue Ochoa RN) History of Uterine Anomaly/PRAFUL: No (05/29/2016 03:32:Yue Ochoa RN) History of Infertility: No (05/29/2016 03:32:Yue Ochoa RN) History of ART Treatment: No (05/29/2016 03:32:Yue Ochoa RN) History of PRAFUL: No (05/29/2016 03:32:Yue Ochoa RN) Comments Obstetrical History: G1: current (05/29/2016 03:32:Yue Ochoa RN) MEDICAL HISTORY Med Hx Diabetes: No (05/29/2016 03:32:Yue Ochoa RN) Med Hx Hypertension: No (05/29/2016 03:32:Yue Ochoa RN) Med Hx Heart Disease: No (05/29/2016 03:32:Yue Ochoa RN) Med Hx Autoimmune Disorder: No (05/29/2016 03:32:Yue Ochoa RN) Med Hx Kidney Disease/UTI: No (05/29/2016 03:32:Yue Ochoa RN) Med Hx Neurologic/Epilepsy: No (05/29/2016 03:32:Yue Ochoa RN) Med Hx Psychiatric Disorders: No (05/29/2016 03:32:Yue Ochoa RN) Med Hx Hepatitis/Liver Disease: No (05/29/2016 03:32:Yue Ochoa RN) Med Hx Varicosities/Phlebitis: No (05/29/2016 03:32:Yue Ochoa RN) Med Hx Thyroid Dysfunction: No (05/29/2016 03:32:Yue Ohcoa RN) Med Hx Trauma/Violence: No (05/29/2016 03:32:Yue Ochoa RN) Med Hx Blood Transfusion: No (05/29/2016 03:32:Yue Ochoa RN) Med Hx Pulmonary (Asthma,TB): No (05/29/2016 03:32:Yue Ochoa RN) Med Hx Breast: No (05/29/2016 03:32:Yue Ochoa RN) Med Hx HEALTH OFFICER Surgery: No (05/29/2016 03:32:Yue Ochoa RN) Med Hx Hospitalization/Surgery: No (05/29/2016 03:32:Yue Ochoa RN) Med Hx Anesthetic Complications: No (05/29/2016 03:32:Yue Ochoa RN) Med Hx Abnormal Pap Smear: Yes (05/29/2016 03:32:Yue Ochoa RN) Other Medical Diseases: No (05/29/2016 03:32:Yue Ochoa RN) Med Hx Significant Family Hx: No (05/29/2016 03:32:Yue Ochoa RN) INFECTIOUS HISTORY Inf Hx Gonorrhea: Yes (05/29/2016 03:32:Jenni Diaz RN) Inf Hx Chlamydia: No (05/29/2016 03:32:Yue Ochoa RN) Inf Hx Syphilis: No (05/29/2016 03:32:Yue Ochoa RN) Inf Hx HIV/AIDS: No (05/29/2016 03:32:Yue Ochoa RN) Inf Hx Human Papilloma Virus: No (05/29/2016 03:32:Yue Ochoa RN) Inf Hx Pt/Partner Genital Herpes: No (05/29/2016 03:32:Yue Ochoa RN) Inf Hx Tuberculosis/Exposure: No (05/29/2016 03:32:Yue Ochoa RN) Inf Hx Hepatitis B,C: No (05/29/2016 03:32:Yue Ochoa RN) Inf Hx Rash or Viral Illness: No (05/29/2016 03:32:Yue Ochoa RN) Details of Infectious Hx: 2015 (05/29/2016 03:32:Yue Ochoa RN) GENETIC HISTORY Gen Hx Age >=35 at TEX: Yes (05/29/2016 03:32:Yue Ochoa RN) Gen Hx Thalassemia: No (05/29/2016 03:32:Yue Ochoa RN) Gen Hx Congenital Heart Defect: No (05/29/2016 03:32:Yue Ochoa RN) Gen Hx Neural Tube Defect: No (05/29/2016 03:32:Yue Ochoa RN) Gen Hx Down's Syndrome: No (05/29/2016 03:32:Yue Ochoa RN) Gen Hx Yovany-Sachs: No (05/29/2016 03:32:Yue Ochoa RN) Gen Hx Jaspreet: No (05/29/2016 03:32:Yue Ochoa RN) Gen Hx Familial Dysautonomia: No (05/29/2016 03:32:Yue Ochoa RN) Gen Hx Sickle Cell Disease/Trait: No (05/29/2016 03:32:Yue Ochoa RN) Gen Hx Hemophilia/Blood Disorder: No (05/29/2016 03:32:Yue Ochoa RN) Gen Hx Muscular Dystrophy: No (05/29/2016 03:32:Yue Ochoa RN) Gen Hx Cystic Fibrosis: No (05/29/2016 03:32:Yue Ochoa RN) Gen Hx Huntingtons Chorea: No (05/29/2016 03:32:Yue Ochoa RN) Gen Hx Mental Retardation/Autism: No (05/29/2016 03:32:Yue Ochoa RN) Gen Hx Tested for Fragile X: No (05/29/2016 03:32:Yue Ochoa RN) Gen Hx Other Inher/Chromosomal: No (05/29/2016 03:32:Yue Ochoa RN) Gen Hx Maternal Metabolic DO: No (05/29/2016 03:32:Yue Ochoa RN) Gen Hx Pt Father or FOB Defect: No (05/29/2016 03:32:Yue Ochoa RN) Gen Hx Other Genetic History: No (05/29/2016 03:32:Yue Ochoa RN) Gen Hx Drugs/Meds since LMP: Yes (05/29/2016 03:32:Yue Ochoa RN) Gen Hx Medications: PNV, iron, cephalexin (05/29/2016 03:32:Yue Ochoa RN) Details of Genetic History: FOB is 36 years old (05/29/2016 03:32:Yue Ochoa RN)
--- NOTE | 2016-06-03 06:13 | L&D General Admission ---
General Admit Datetime Report Generated by CPN: 06/03/2016 06:00 INFORMATION Patient Age: 20 (04/27/2016 12:09:QS system process) EDC: 06/04/2016 00:00 (05/29/2016 03:32:Chana Randall RN) : 1 (05/29/2016 03:32:Yue Ring, RN) Para: 0 (05/29/2016 03:32:Yue Ring, RN) Term: 0 (05/29/2016 03:32:Yue Ring, RN) : 0 (05/29/2016 03:32:Yue Ring, RN) Spontaneous Abortions: 0 (05/29/2016 03:32:Yue Ring, RN) Induced Abortions: 0 (05/29/2016 03:32:Yue Ring, RN) Livin (05/29/2016 03:32:Yue Ring, RN) Cesareans: 0 (05/29/2016 03:32:Yue Ring, RN) VBACs: 0 (05/29/2016 03:32:Yue Ring, RN) Ectopic: 0 (05/29/2016 03:32:Yue Ochoa RN) Multiple Births: 0 (05/29/2016 03:32:Yue Ochoa RN) Baby, Number in Womb: 1 (05/29/2016 03:32:Yue Ochoa RN) CARE 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: [facility] (05/29/2016 03:32:Chana Randall RN) Adequate Care: Yes (05/29/2016 03:32:Yue Ochoa RN) Height (in): 64 (05/30/2016 12:08:QS system process) ALLERGIES Medication Allergy: No (05/29/2016 03:32:Yue Ochoa RN) Medication Allergies: pineapple (05/29/2016) (05/29/2016 04:38:QS system process) Latex Allergy: No Latex Allergies (05/29/2016 03:32:Yue Ochoa RN) Food Allergies: pineapple (05/29/2016 03:32:Jenni Diaz RN) COMMUNICATION Primary Language: Namibian (05/29/2016 03:32:Yue Ochoa RN) Medical Tx Preferred Language: Namibian (05/29/2016 03:32:Yue Ochoa RN) Namibian Communication Ability: Speaks Namibian; Reads Namibian (05/29/2016 03:32:Jenni Diaz RN) Communication Barrier(s): None (05/29/2016 03:32:Jenni Diaz RN) DEMOGRAPHICS Address: [address] [place] [id number] (04/27/2016 12:09:QS system process) Zipcode: [id number] (04/27/2016 12:09:QS system process) Home (04/27/2016 12:09:QS system process) Work (04/27/2016 12:09:QS system process) SSN: [id number] (04/27/2016 12:09:QS system process) Next of Kin Name: HAYES DIETRICH (04/27/2016 12:09:QS system process) Next of Kin (04/27/2016 12:09:QS system process) Next of Kin Relationship: OR (04/27/2016 12:09:QS system process) Date of : 1995 (04/27/2016 12:09:QS system process) Marital Status: Single (04/27/2016 12:09:QS system process) Sex: Female (04/27/2016 12:09:QS system process) Race: (04/27/2016 12:09:QS system process) Ethnicity: Non- or (04/27/2016 12:09:QS system process) Religious: None (04/27/2016 12:09:QS system process) DRUG AND ALCOHOL USE Alcohol: No (05/29/2016 03:32:Yue Ring, RN) Cigarettes: Never Smoker. [id number] (05/29/2016 03:32:Yue Ring, RN) Marijuana: No (05/29/2016 03:32:Yue Ring, RN) Cocaine: No (05/29/2016 03:32:Yue Ring, RN) Other Illicit Drugs: No (05/29/2016 03:32:Yue Ring, RN) VACCINE HISTORY Influenza Vaccine: No (05/29/2016 03:32:Yue Ochoa RN) Pneumococcal Vaccine: No (05/29/2016 03:32:Yue Ochoa RN) Tetanus Vaccine: Yes (05/29/2016 03:32:Yue Ochoa RN) Tdap Vaccine: Yes (05/29/2016 03:32:Yue Ochoa RN) Tdap Date: 2015 (05/29/2016 03:32:Yue Ochoa RN) Hepatitis B Vaccine: Yes (05/29/2016 03:32:Yue Ochoa RN) Harness Maker: [facility] (05/29/2016 03:32:Yue Ochoa RN) Feeding Preference: Breast (05/29/2016 03:32:Yue Ochoa RN) Benefit of Breast Feed Discussed: Yes (05/29/2016 03:32:Yue Ochoa RN) Circumcision: Yes (05/29/2016 03:32:Yue Ochoa RN) Classes Attended: No (05/29/2016 03:32:Yue Ochoa RN) Tubal Ligation: No (05/29/2016 03:32:Yue Ochoa RN) Tubal Authorization Signed: N/A (05/29/2016 03:32:Yue Ochoa RN) Consent: N/A (05/29/2016 03:32:Yue Ochoa RN) Consent Signed: N/A (05/29/2016 03:32:Yue Ochoa RN) Pain Management Plans: Epidural (05/29/2016 03:32:Yue Ochoa RN) Plans for Labor and Delivery: None (05/29/2016 03:32:Yue Ochoa RN) Support Person: Vj (05/29/2016 03:32:Yue Ochoa RN) Support Person Relationship: Significant Other (05/29/2016 03:32:Yue Ochoa RN) Cultural/Spritual Practice: No (05/29/2016 03:32:Yue Ochoa RN) Spir/Cult Dietary Needs: No (05/29/2016 03:32:Yue Ochoa RN) LIVING SITUATION/DISCHARGE PLAN Living Arrangements: House (05/29/2016 03:32:Yue Ochoa RN) Adequate Access to:: Electric; Heat; Refrigeration; Plumbing/Running water; Phone; Transportation (05/29/2016 03:32:Yue Ochoa RN) WIC Program: No (05/29/2016 03:32:Yue Ochoa RN) Discharge Net Developer Programmer Person: Vj (05/29/2016 03:32:Yue Ochoa RN) Person to Help after Discharge: Vj (05/29/2016 03:32:Yue Ochoa RN) Currently Using Commun Resources: Yes (05/29/2016 03:32:Yue Ochoa RN) Specify Current Resource Used: Medicaid (05/29/2016 03:32:Yue Ochoa RN) Outside Agency/Fruit Buyer: No (05/29/2016 03:32:Yue Ochoa RN) Car Seat for Discharge: Yes (05/29/2016 03:32:Yue Ochoa RN) Adoption Requested: No (05/29/2016 03:32:Yue Ochoa RN) Pt Contact w/infant Post : N/A (05/29/2016 03:32:Yue Ochoa RN) LABS Blood Type: AB Negative (05/29/2016 03:32:Marichuy Rios RN) Antibody Screen: Negative (05/29/2016 03:32:Yue Ochoa RN) Hemoglobin: 9.4 L (05/30/2016 06:05:QS system process) Hematocrit: 27.3 L (05/30/2016 06:05:QS system process) MCV: 79 L (05/30/2016 06:05:QS system process) Group Beta Strep: negative (05/29/2016 03:32:Marichuy Rios RN) Gonorrhea: Negative (05/29/2016 03:32:Marichuy Rios RN) Chlamydia: Negative (05/29/2016 03:32:Marichuy Rios RN) RPR/VDRL: Nonreactive (05/29/2016 03:32:Marichuy Rios RN) HIV Results: negative (Annotations: Data stored by [facility] on behalf of user) (05/29/2016 03:32:Jenni Diaz RN) Hepatitis B: Negative (05/29/2016 03:32:Jenni Diaz RN) Rubella: Immune (05/29/2016 03:32:Jenni Diaz RN) OB/PREVIOUS HISTORY Current Procedures: Ultrasound; NST (05/29/2016 03:32:Jenni Diaz RN) History of Previous : No (05/29/2016 03:32:Yue Ochoa RN) History of Gestational Diabetes: No (05/29/2016 03:32:Yue Ochoa RN) History of PIH: No (05/29/2016 03:32:Yue Ochoa RN) History of Incompetent Cervix: No (05/29/2016 03:32:Yue Ochoa RN) History of Placenta Previa/Abrup: No (05/29/2016 03:32:Yue Ochoa RN) History of Macrosomia: No (05/29/2016 03:32:Yue Ochoa RN) History of IUGR: No (05/29/2016 03:32:Yue Ochoa RN) History of Hemorrhage: No (05/29/2016 03:32:Yue Ochoa RN) History of Loss/Stillborn: No (05/29/2016 03:32:Yue Ochoa RN) History of : No (05/29/2016 03:32:Yue Ochoa RN) History of D (Rh) Sensitization: No (05/29/2016 03:32:Yue Ochoa RN) History Recurrent Loss/Stillborn: No (05/29/2016 03:32:Yue Ochoa RN) History Depression/PP Depression: No (05/29/2016 03:32:Yue Ochoa RN) History of Uterine Anomaly/PRAFUL: No (05/29/2016 03:32:Yue Ochoa RN) History of Infertility: No (05/29/2016 03:32:Yue Ochoa RN) History of ART Treatment: No (05/29/2016 03:32:Yue Ochoa RN) History of PRAFUL: No (05/29/2016 03:32:Yue Ochoa RN) Comments Obstetrical History: G1: current (05/29/2016 03:32:Yue Ochoa RN) MEDICAL HISTORY Med Hx Diabetes: No (05/29/2016 03:32:Yue Ochoa RN) Med Hx Hypertension: No (05/29/2016 03:32:Yue Ochoa RN) Med Hx Heart Disease: No (05/29/2016 03:32:Yue Ochoa RN) Med Hx Autoimmune Disorder: No (05/29/2016 03:32:Yue Ochoa RN) Med Hx Kidney Disease/UTI: No (05/29/2016 03:32:Yue Ochoa RN) Med Hx Neurologic/Epilepsy: No (05/29/2016 03:32:Yue Ochoa RN) Med Hx Psychiatric Disorders: No (05/29/2016 03:32:Yue Ochoa RN) Med Hx Hepatitis/Liver Disease: No (05/29/2016 03:32:Yue Ochoa RN) Med Hx Varicosities/Phlebitis: No (05/29/2016 03:32:Yue Ochoa RN) Med Hx Thyroid Dysfunction: No (05/29/2016 03:32:Yue Ochoa RN) Med Hx Trauma/Violence: No (05/29/2016 03:32:Yue Ochoa RN) Med Hx Blood Transfusion: No (05/29/2016 03:32:Yue Ochoa RN) Med Hx Pulmonary (Asthma,TB): No (05/29/2016 03:32:Yue Ochoa RN) Med Hx Breast: No (05/29/2016 03:32:Yue Ochoa RN) Med Hx TILE DITCHER Surgery: No (05/29/2016 03:32:Yue Ochoa RN) Med Hx Hospitalization/Surgery: No (05/29/2016 03:32:Yue Ochoa RN) Med Hx Anesthetic Complications: No (05/29/2016 03:32:Yue Ochoa RN) Med Hx Abnormal Pap Smear: Yes (05/29/2016 03:32:Yue Ochoa RN) Other Medical Diseases: No (05/29/2016 03:32:Yue Ochoa RN) Med Hx Significant Family Hx: No (05/29/2016 03:32:Yue Ochoa RN) INFECTIOUS HISTORY Inf Hx Gonorrhea: Yes (05/29/2016 03:32:Jenni Diaz RN) Inf Hx Chlamydia: No (05/29/2016 03:32:Yue Ochoa RN) Inf Hx Syphilis: No (05/29/2016 03:32:Yue Ochoa RN) Inf Hx HIV/AIDS: No (05/29/2016 03:32:Yue Ochoa RN) Inf Hx Human Papilloma Virus: No (05/29/2016 03:32:Yue Ochoa RN) Inf Hx Pt/Partner Genital Herpes: No (05/29/2016 03:32:Yue Ochoa RN) Inf Hx Tuberculosis/Exposure: No (05/29/2016 03:32:Yue Ochoa RN) Inf Hx Hepatitis B,C: No (05/29/2016 03:32:Yue Ochoa RN) Inf Hx Rash or Viral Illness: No (05/29/2016 03:32:Yue Ochoa RN) Details of Infectious Hx: 2015 (05/29/2016 03:32:Yue Ochoa RN) GENETIC HISTORY Gen Hx Age >=35 at TEX: Yes (05/29/2016 03:32:Yue Ochao RN) Gen Hx Thalassemia: No (05/29/2016 03:32:Yue Ochoa RN) Gen Hx Congenital Heart Defect: No (05/29/2016 03:32:Yue Ochoa RN) Gen Hx Neural Tube Defect: No (05/29/2016 03:32:Yue Ochoa RN) Gen Hx Down's Syndrome: No (05/29/2016 03:32:Yue Ochoa RN) Gen Hx Yovany-Sachs: No (05/29/2016 03:32:Yue Ochoa RN) Gen Hx Jaspreet: No (05/29/2016 03:32:Yue Ochoa RN) Gen Hx Familial Dysautonomia: No (05/29/2016 03:32:Yue Ochoa RN) Gen Hx Sickle Cell Disease/Trait: No (05/29/2016 03:32:Yue Ochoa RN) Gen Hx Hemophilia/Blood Disorder: No (05/29/2016 03:32:Yue Ochoa RN) Gen Hx Muscular Dystrophy: No (05/29/2016 03:32:Yue Ochoa RN) Gen Hx Cystic Fibrosis: No (05/29/2016 03:32:Yue Ochoa RN) Gen Hx Huntingtons Chorea: No (05/29/2016 03:32:Yue Ochoa RN) Gen Hx Mental Retardation/Autism: No (05/29/2016 03:32:Yue Ochoa RN) Gen Hx Tested for Fragile X: No (05/29/2016 03:32:Yue Ochoa RN) Gen Hx Other Inher/Chromosomal: No (05/29/2016 03:32:Yue Ochoa RN) Gen Hx Maternal Metabolic DO: No (05/29/2016 03:32:Yue Ochoa RN) Gen Hx Pt Father or FOB Defect: No (05/29/2016 03:32:Yue Ochoa RN) Gen Hx Other Genetic History: No (05/29/2016 03:32:Yue Ochoa RN) Gen Hx Drugs/Meds since LMP: Yes (05/29/2016 03:32:Yue Ochoa RN) Gen Hx Medications: PNV, iron, cephalexin (05/29/2016 03:32:Yue Ochoa RN) Details of Genetic History: FOB is 36 years old (05/29/2016 03:32:Yue Ochoa RN)
--- NOTE | 2016-06-04 06:14 | L&D General Admission ---
General Admit Datetime Report Generated by CPN: 06/04/2016 06:00 INFORMATION Patient Age: 20 (04/27/2016 12:09:QS system process) EDC: 06/04/2016 00:00 (05/29/2016 03:32:Chana Randall RN) : 1 (05/29/2016 03:32:Yue Ring, RN) Para: 0 (05/29/2016 03:32:Yue Ring, RN) Term: 0 (05/29/2016 03:32:Yue Ring, RN) : 0 (05/29/2016 03:32:Yue Ring, RN) Spontaneous Abortions: 0 (05/29/2016 03:32:Yue Ring, RN) Induced Abortions: 0 (05/29/2016 03:32:Yue Ring, RN) Livin (05/29/2016 03:32:Yue Ring, RN) Cesareans: 0 (05/29/2016 03:32:Yue Ring, RN) VBACs: 0 (05/29/2016 03:32:Yue Ring, RN) Ectopic: 0 (05/29/2016 03:32:Yue Ochoa RN) Multiple Births: 0 (05/29/2016 03:32:Yue Ochoa RN) Baby, Number in Womb: 1 (05/29/2016 03:32:Yue Ochoa RN) CARE 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 Power 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: [facility] (05/29/2016 03:32:Chana Randall RN) Adequate Care: Yes (05/29/2016 03:32:Yue Ochoa RN) Height (in): 64 (05/30/2016 12:08:QS system process) ALLERGIES Medication Allergy: No (05/29/2016 03:32:Yue Ochoa RN) Medication Allergies: pineapple (05/29/2016) (05/29/2016 04:38:QS system process) Latex Allergy: No Latex Allergies (05/29/2016 03:32:Yue Ochoa RN) Food Allergies: pineapple (05/29/2016 03:32:Jenni Diaz RN) COMMUNICATION Primary Language: American (05/29/2016 03:32:Yue Ochoa RN) Medical Tx Preferred Language: American (05/29/2016 03:32:Yue Ochoa RN) American Communication Ability: Speaks American; Reads American (05/29/2016 03:32:Jenni Diaz RN) Communication Barrier(s): None (05/29/2016 03:32:Jenni Diaz RN) DEMOGRAPHICS Address: [address] [place] [id number] (04/27/2016 12:09:QS system process) Zipcode: [address] (04/27/2016 12:09:QS system process) Home (04/27/2016 12:09:QS system process) Work (04/27/2016 12:09:QS system process) SSN: [id number] (04/27/2016 12:09:QS system process) Next of Kin Name: HAYES DIETRICH (04/27/2016 12:09:QS system process) Next of Kin (04/27/2016 12:09:QS system process) Next of Kin Relationship: OR (04/27/2016 12:09:QS system process) Date of : 1995 (04/27/2016 12:09:QS system process) Marital Status: Single (04/27/2016 12:09:QS system process) Sex: Female (04/27/2016 12:09:QS system process) Race: (04/27/2016 12:09:QS system process) Ethnicity: Non- or (04/27/2016 12:09:QS system process) Cheondoism: None (04/27/2016 12:09:QS system process) DRUG AND ALCOHOL USE Alcohol: No (05/29/2016 03:32:Yue Ring, RN) Cigarettes: Never Smoker. [id number] (05/29/2016 03:32:Yue Ring, RN) Marijuana: No (05/29/2016 03:32:Yue Ring, RN) Cocaine: No (05/29/2016 03:32:Yue Ring, RN) Other Illicit Drugs: No (05/29/2016 03:32:Yue Ring, RN) VACCINE HISTORY Influenza Vaccine: No (05/29/2016 03:32:Yue Ochoa RN) Pneumococcal Vaccine: No (05/29/2016 03:32:Yue Ochoa RN) Tetanus Vaccine: Yes (05/29/2016 03:32:Yue Ochoa RN) Tdap Vaccine: Yes (05/29/2016 03:32:Yue Ochoa RN) Tdap Date: 2015 (05/29/2016 03:32:Yue Ochoa RN) Hepatitis B Vaccine: Yes (05/29/2016 03:32:Yue Ochoa RN) Administrative Staff Supervisor: [facility] (05/29/2016 03:32:Yue Ochoa RN) Feeding Preference: Breast (05/29/2016 03:32:Yue Ochoa RN) Benefit of Breast Feed Discussed: Yes (05/29/2016 03:32:Yue Ochoa RN) Circumcision: Yes (05/29/2016 03:32:Yue Ochoa RN) Classes Attended: No (05/29/2016 03:32:Yeu Ochoa RN) Tubal Ligation: No (05/29/2016 03:32:Yue Ochoa RN) Tubal Authorization Signed: N/A (05/29/2016 03:32:Yue Ochoa RN) Consent: N/A (05/29/2016 03:32:Yue Ochoa RN) Consent Signed: N/A (05/29/2016 03:32:Yue Ochoa RN) Pain Management Plans: Epidural (05/29/2016 03:32:Yue Ochoa RN) Plans for Labor and Delivery: None (05/29/2016 03:32:Yue Ochoa RN) Support Person: Vj (05/29/2016 03:32:Yue Ochoa RN) Support Person Relationship: Significant Other (05/29/2016 03:32:Yue Ochoa RN) Cultural/Spritual Practice: No (05/29/2016 03:32:Yue Ochoa RN) Spir/Cult Dietary Needs: No (05/29/2016 03:32:Yue Ochoa RN) LIVING SITUATION/DISCHARGE PLAN Living Arrangements: House (05/29/2016 03:32:Yue Ochoa RN) Adequate Access to:: Electric; Heat; Refrigeration; Plumbing/Running water; Phone; Transportation (05/29/2016 03:32:Yue Ochoa RN) WIC Program: No (05/29/2016 03:32:Yue Ochoa RN) Discharge Early Morning Person: Vj (05/29/2016 03:32:Yue Ochoa RN) Person to Help after Discharge: Vj (05/29/2016 03:32:Yue Ochoa RN) Currently Using Commun Resources: Yes (05/29/2016 03:32:Yue Ochoa RN) Specify Current Resource Used: Medicaid (05/29/2016 03:32:Yue Ochoa RN) Outside Agency/Sheet Metal Worker Helper: No (05/29/2016 03:32:Yue Ochoa RN) Car Seat for Discharge: Yes (05/29/2016 03:32:Yue Ochoa RN) Adoption Requested: No (05/29/2016 03:32:Yue Ochoa RN) Pt Contact w/infant Post : N/A (05/29/2016 03:32:Yue Ochoa RN) LABS Blood Type: AB Negative (05/29/2016 03:32:Marichuy Rios RN) Antibody Screen: Negative (05/29/2016 03:32:Yue Ochoa RN) Hemoglobin: 9.4 L (05/30/2016 06:05:QS system process) Hematocrit: 27.3 L (05/30/2016 06:05:QS system process) MCV: 79 L (05/30/2016 06:05:QS system process) Group Beta Strep: negative (05/29/2016 03:32:Marichuy Rios RN) Gonorrhea: Negative (05/29/2016 03:32:Mairchuy Rios RN) Chlamydia: Negative (05/29/2016 03:32:Marichuy Rios RN) RPR/VDRL: Nonreactive (05/29/2016 03:32:Marichuy Rios RN) HIV Results: negative (Annotations: Data stored by [facility] on behalf of user) (05/29/2016 03:32:Jenni Diaz RN) Hepatitis B: Negative (05/29/2016 03:32:Jenni Diaz RN) Rubella: Immune (05/29/2016 03:32:Jenni Diaz RN) OB/PREVIOUS HISTORY Current Procedures: Ultrasound; NST (05/29/2016 03:32:Jenni Diaz RN) History of Previous : No (05/29/2016 03:32:Yue Ochoa RN) History of Gestational Diabetes: No (05/29/2016 03:32:Yue Ochoa RN) History of PIH: No (05/29/2016 03:32:Yue Ochoa RN) History of Incompetent Cervix: No (05/29/2016 03:32:Yue Ochoa RN) History of Placenta Previa/Abrup: No (05/29/2016 03:32:Yue Ochoa RN) History of Macrosomia: No (05/29/2016 03:32:Yue Ochoa RN) History of IUGR: No (05/29/2016 03:32:Yue Ochoa RN) History of Hemorrhage: No (05/29/2016 03:32:Yue Ochoa RN) History of Loss/Stillborn: No (05/29/2016 03:32:Yue Ochoa RN) History of : No (05/29/2016 03:32:Yue Ochoa RN) History of D (Rh) Sensitization: No (05/29/2016 03:32:Yue Ochoa RN) History Recurrent Loss/Stillborn: No (05/29/2016 03:32:Yue Ochoa RN) History Depression/PP Depression: No (05/29/2016 03:32:Yue Ochoa RN) History of Uterine Anomaly/PRAFUL: No (05/29/2016 03:32:Yue Ochoa RN) History of Infertility: No (05/29/2016 03:32:Yue Ochoa RN) History of ART Treatment: No (05/29/2016 03:32:Yue Ochoa RN) History of PRAFUL: No (05/29/2016 03:32:Yue Ochoa RN) Comments Obstetrical History: G1: current (05/29/2016 03:32:Yue Ochoa RN) MEDICAL HISTORY Med Hx Diabetes: No (05/29/2016 03:32:Yue Ochoa RN) Med Hx Hypertension: No (05/29/2016 03:32:Yue Ochoa RN) Med Hx Heart Disease: No (05/29/2016 03:32:Yue Ochoa RN) Med Hx Autoimmune Disorder: No (05/29/2016 03:32:Yue Ochoa RN) Med Hx Kidney Disease/UTI: No (05/29/2016 03:32:Yue Ochoa RN) Med Hx Neurologic/Epilepsy: No (05/29/2016 03:32:Yue Ochoa RN) Med Hx Psychiatric Disorders: No (05/29/2016 03:32:Yue Ochoa RN) Med Hx Hepatitis/Liver Disease: No (05/29/2016 03:32:Yue Ochoa RN) Med Hx Varicosities/Phlebitis: No (05/29/2016 03:32:Yue Ochoa RN) Med Hx Thyroid Dysfunction: No (05/29/2016 03:32:Yue Ochoa RN) Med Hx Trauma/Violence: No (05/29/2016 03:32:Yue Ochoa RN) Med Hx Blood Transfusion: No (05/29/2016 03:32:Yue Ochoa RN) Med Hx Pulmonary (Asthma,TB): No (05/29/2016 03:32:Yue Ochoa RN) Med Hx Breast: No (05/29/2016 03:32:Yue Ochoa RN) Med Hx NURSING ATTENDANT Surgery: No (05/29/2016 03:32:Yue Ochoa RN) Med Hx Hospitalization/Surgery: No (05/29/2016 03:32:Yue Ochoa RN) Med Hx Anesthetic Complications: No (05/29/2016 03:32:Yue Ochoa RN) Med Hx Abnormal Pap Smear: Yes (05/29/2016 03:32:Yue Ochoa RN) Other Medical Diseases: No (05/29/2016 03:32:Yue Ochoa RN) Med Hx Significant Family Hx: No (05/29/2016 03:32:Yue Ochoa RN) INFECTIOUS HISTORY Inf Hx Gonorrhea: Yes (05/29/2016 03:32:Jenni Diaz RN) Inf Hx Chlamydia: No (05/29/2016 03:32:Yue Ochoa RN) Inf Hx Syphilis: No (05/29/2016 03:32:Yue Ochoa RN) Inf Hx HIV/AIDS: No (05/29/2016 03:32:Yue Ochoa RN) Inf Hx Human Papilloma Virus: No (05/29/2016 03:32:Yue Ochoa RN) Inf Hx Pt/Partner Genital Herpes: No (05/29/2016 03:32:Yue Ochoa RN) Inf Hx Tuberculosis/Exposure: No (05/29/2016 03:32:Yue Ochoa RN) Inf Hx Hepatitis B,C: No (05/29/2016 03:32:Yeu Ochoa RN) Inf Hx Rash or Viral Illness: No (05/29/2016 03:32:Yue Ochoa RN) Details of Infectious Hx: 2015 (05/29/2016 03:32:Yue Ochoa RN) GENETIC HISTORY Gen Hx Age >=35 at TEX: Yes (05/29/2016 03:32:Yue Ochoa RN) Gen Hx Thalassemia: No (05/29/2016 03:32:Yue Ochoa RN) Gen Hx Congenital Heart Defect: No (05/29/2016 03:32:Yue Ochoa RN) Gen Hx Neural Tube Defect: No (05/29/2016 03:32:Yue Ochoa RN) Gen Hx Down's Syndrome: No (05/29/2016 03:32:Yue Ochoa RN) Gen Hx Yovany-Sachs: No (05/29/2016 03:32:Yue Ochoa RN) Gen Hx Jaspreet: No (05/29/2016 03:32:Yue Ochoa RN) Gen Hx Familial Dysautonomia: No (05/29/2016 03:32:Yue Ochoa RN) Gen Hx Sickle Cell Disease/Trait: No (05/29/2016 03:32:Yue Ochoa RN) Gen Hx Hemophilia/Blood Disorder: No (05/29/2016 03:32:Yue Ochoa RN) Gen Hx Muscular Dystrophy: No (05/29/2016 03:32:Yue Ochoa RN) Gen Hx Cystic Fibrosis: No (05/29/2016 03:32:Yue Ochoa RN) Gen Hx Huntingtons Chorea: No (05/29/2016 03:32:Yue Ochoa RN) Gen Hx Mental Retardation/Autism: No (05/29/2016 03:32:Yue Ochoa RN) Gen Hx Tested for Fragile X: No (05/29/2016 03:32:Yue Ochoa RN) Gen Hx Other Inher/Chromosomal: No (05/29/2016 03:32:Yue Ochoa RN) Gen Hx Maternal Metabolic DO: No (05/29/2016 03:32:Yue Ochoa RN) Gen Hx Pt Father or FOB Defect: No (05/29/2016 03:32:Yue Ochoa RN) Gen Hx Other Genetic History: No (05/29/2016 03:32:Yue Ochoa RN) Gen Hx Drugs/Meds since LMP: Yes (05/29/2016 03:32:Yue Ochoa RN) Gen Hx Medications: PNV, iron, cephalexin (05/29/2016 03:32:Yue Ochoa RN) Details of Genetic History: FOB is 36 years old (05/29/2016 03:32:Yue Ochoa RN)
--- NOTE | 2016-06-05 06:12 | L&D General Admission ---
General Admit Datetime Report Generated by CPN: 06/05/2016 06:00 INFORMATION Patient Age: 20 (04/27/2016 12:09:QS system process) EDC: 06/04/2016 00:00 (05/29/2016 03:32:Chana Randall RN) : 1 (05/29/2016 03:32:Yue Ring, RN) Para: 0 (05/29/2016 03:32:Yue Ring, RN) Term: 0 (05/29/2016 03:32:Yue Ring, RN) : 0 (05/29/2016 03:32:Yue Ring, RN) Spontaneous Abortions: 0 (05/29/2016 03:32:Yue Ring, RN) Induced Abortions: 0 (05/29/2016 03:32:Yue Ring, RN) Livin (05/29/2016 03:32:Yue Ring, RN) Cesareans: 0 (05/29/2016 03:32:Yue Ring, RN) VBACs: 0 (05/29/2016 03:32:Yue Ring, RN) Ectopic: 0 (05/29/2016 03:32:Yue Ochoa RN) Multiple Births: 0 (05/29/2016 03:32:Yue Ochoa RN) Baby, Number in Womb: 1 (05/29/2016 03:32:Yue Ochoa RN) CARE Primary Partner Manager: [facility] (05/29/2016 03:32:Chana Randall RN) Adequate Care: Yes (05/29/2016 03:32:Yue Ochoa RN) Height (in): 64 (05/30/2016 12:08:QS system process) ALLERGIES Medication Allergy: No (05/29/2016 03:32:Yue Ochoa RN) Medication Allergies: pineapple (05/29/2016) (05/29/2016 04:38:QS system process) Latex Allergy: No Latex Allergies (05/29/2016 03:32:Yue Ochoa RN) Food Allergies: pineapple (05/29/2016 03:32:Jenni Diaz RN) COMMUNICATION Primary Language: Kuwaiti (05/29/2016 03:32:Yue Ochoa RN) Medical Tx Preferred Language: Kuwaiti (05/29/2016 03:32:Yue Ochoa RN) Kuwaiti Communication Ability: Speaks Kuwaiti; Reads Kuwaiti (05/29/2016 03:32:Jenni Diaz RN) Communication Barrier(s): None (05/29/2016 03:32:Jenni Diaz RN) DEMOGRAPHICS Address: [address] [place] [id number] (04/27/2016 12:09:QS system process) Zipcode: [address] (04/27/2016 12:09:QS system process) Home (04/27/2016 12:09:QS system process) Work (04/27/2016 12:09:QS system process) SSN: [id number] (04/27/2016 12:09:QS system process) Next of Kin Name: HAYES DIETRICH (04/27/2016 12:09:QS system process) Next of Kin (04/27/2016 12:09:QS system process) Next of Kin Relationship: OR (04/27/2016 12:09:QS system process) Date of : 1995 (04/27/2016 12:09:QS system process) Marital Status: Single (04/27/2016 12:09:QS system process) Sex: Female (04/27/2016 12:09:QS system process) Race: (04/27/2016 12:09:QS system process) Ethnicity: Non- or (04/27/2016 12:09:QS system process) Scientology: None (04/27/2016 12:09:QS system process) DRUG AND ALCOHOL USE Alcohol: No (05/29/2016 03:32:Yue Ring, RN) Cigarettes: Never Smoker. [id number] (05/29/2016 03:32:Yue Ring, RN) Marijuana: No (05/29/2016 03:32:Yue Ring, RN) Cocaine: No (05/29/2016 03:32:Yue Ring, RN) Other Illicit Drugs: No (05/29/2016 03:32:Yue Ring, RN) VACCINE HISTORY Influenza Vaccine: No (05/29/2016 03:32:Yue Ochoa RN) Pneumococcal Vaccine: No (05/29/2016 03:32:Yue Ochoa RN) Tetanus Vaccine: Yes (05/29/2016 03:32:Yue Ochoa RN) Tdap Vaccine: Yes (05/29/2016 03:32:Yue Ochoa RN) Tdap Date: 2015 (05/29/2016 03:32:Yue Ochoa RN) Hepatitis B Vaccine: Yes (05/29/2016 03:32:Yue Ochoa RN) Coil Machine Operator: [facility] (05/29/2016 03:32:Yue Ochoa RN) Feeding Preference: Breast (05/29/2016 03:32:Yue Ochoa RN) Benefit of Breast Feed Discussed: Yes (05/29/2016 03:32:Yue Ochoa RN) Circumcision: Yes (05/29/2016 03:32:Yue Ochoa RN) Classes Attended: No (05/29/2016 03:32:Yue Ochoa RN) Tubal Ligation: No (05/29/2016 03:32:Yue Ochoa RN) Tubal Authorization Signed: N/A (05/29/2016 03:32:Yue Ochoa RN) Consent: N/A (05/29/2016 03:32:Yue Ochoa RN) Consent Signed: N/A (05/29/2016 03:32:Yue Ochoa RN) Pain Management Plans: Epidural (05/29/2016 03:32:Yue Ochoa RN) Plans for Labor and Delivery: None (05/29/2016 03:32:Yue Ochoa RN) Support Person: Vj (05/29/2016 03:32:Yue Ochoa RN) Support Person Relationship: Significant Other (05/29/2016 03:32:Yue Ochoa RN) Cultural/Spritual Practice: No (05/29/2016 03:32:Yue Ochoa RN) Spir/Cult Dietary Needs: No (05/29/2016 03:32:Yue Ochoa RN) LIVING SITUATION/DISCHARGE PLAN Living Arrangements: House (05/29/2016 03:32:Yue Ochoa RN) Adequate Access to:: Electric; Heat; Refrigeration; Plumbing/Running water; Phone; Transportation (05/29/2016 03:32:Yue Ochoa RN) WIC Program: No (05/29/2016 03:32:Yue Ochoa RN) Discharge Newspaper Correspondent Person: Vj (05/29/2016 03:32:Yue Ochoa RN) Person to Help after Discharge: Vj (05/29/2016 03:32:Yue Ochoa RN) Currently Using Commun Resources: Yes (05/29/2016 03:32:Yue Ochoa RN) Specify Current Resource Used: Medicaid (05/29/2016 03:32:Yue Ochoa RN) Outside Agency/Sponge Press Operator: No (05/29/2016 03:32:Yue Ochoa RN) Car Seat for Discharge: Yes (05/29/2016 03:32:Yue Ochoa RN) Adoption Requested: No (05/29/2016 03:32:Yue Ochoa RN) Pt Contact w/infant Post : N/A (05/29/2016 03:32:Yue Ochoa RN) LABS Blood Type: AB Negative (05/29/2016 03:32:Marichuy Rios RN) Antibody Screen: Negative (05/29/2016 03:32:Yue Ochoa RN) Hemoglobin: 9.4 L (05/30/2016 06:05:QS system process) Hematocrit: 27.3 L (05/30/2016 06:05:QS system process) MCV: 79 L (05/30/2016 06:05:QS system process) Group Beta Strep: negative (05/29/2016 03:32:Marichuy Rios RN) Gonorrhea: Negative (05/29/2016 03:32:Marichuy Rios RN) Chlamydia: Negative (05/29/2016 03:32:Marichuy Rios RN) RPR/VDRL: Nonreactive (05/29/2016 03:32:Marichuy Rios RN) HIV Results: negative (Annotations: Data stored by [facility] on behalf of user) (05/29/2016 03:32:Jenni Diaz RN) Hepatitis B: Negative (05/29/2016 03:32:Jenni Diaz RN) Rubella: Immune (05/29/2016 03:32:Jenni Diaz RN) OB/PREVIOUS HISTORY Current Procedures: Ultrasound; NST (05/29/2016 03:32:Jenni Diaz RN) History of Previous : No (05/29/2016 03:32:Yue Ochoa RN) History of Gestational Diabetes: No (05/29/2016 03:32:Yue Ochoa RN) History of PIH: No (05/29/2016 03:32:Yue Ochoa RN) History of Incompetent Cervix: No (05/29/2016 03:32:Yue Ochoa RN) History of Placenta Previa/Abrup: No (05/29/2016 03:32:Yue Ochoa RN) History of Macrosomia: No (05/29/2016 03:32:Yue Ochoa RN) History of IUGR: No (05/29/2016 03:32:Yue Ochoa RN) History of Hemorrhage: No (05/29/2016 03:32:Yue Ochoa RN) History of Loss/Stillborn: No (05/29/2016 03:32:Yue Ochoa RN) History of : No (05/29/2016 03:32:Yue Ochoa RN) History of D (Rh) Sensitization: No (05/29/2016 03:32:Yue Ochoa RN) History Recurrent Loss/Stillborn: No (05/29/2016 03:32:Yue Ochoa RN) History Depression/PP Depression: No (05/29/2016 03:32:Yue Ochoa RN) History of Uterine Anomaly/PRAFUL: No (05/29/2016 03:32:Yue Ochoa RN) History of Infertility: No (05/29/2016 03:32:Yue Ochoa RN) History of ART Treatment: No (05/29/2016 03:32:Yue Ochoa RN) History of PRAFUL: No (05/29/2016 03:32:Yue Ochoa RN) Comments Obstetrical History: G1: current (05/29/2016 03:32:Yue Ochoa RN) MEDICAL HISTORY Med Hx Diabetes: No (05/29/2016 03:32:Yue Ochoa RN) Med Hx Hypertension: No (05/29/2016 03:32:Yue Ochoa RN) Med Hx Heart Disease: No (05/29/2016 03:32:Yue Ochoa RN) Med Hx Autoimmune Disorder: No (05/29/2016 03:32:Yue Ochoa RN) Med Hx Kidney Disease/UTI: No (05/29/2016 03:32:Yue Ochoa RN) Med Hx Neurologic/Epilepsy: No (05/29/2016 03:32:Yue Ochoa RN) Med Hx Psychiatric Disorders: No (05/29/2016 03:32:Yue Ochoa RN) Med Hx Hepatitis/Liver Disease: No (05/29/2016 03:32:Yue Ochoa RN) Med Hx Varicosities/Phlebitis: No (05/29/2016 03:32:Yue Ochoa RN) Med Hx Thyroid Dysfunction: No (05/29/2016 03:32:Yue Ochoa RN) Med Hx Trauma/Violence: No (05/29/2016 03:32:Yue Ochoa RN) Med Hx Blood Transfusion: No (05/29/2016 03:32:Yue Ochoa RN) Med Hx Pulmonary (Asthma,TB): No (05/29/2016 03:32:Yue Ochoa RN) Med Hx Breast: No (05/29/2016 03:32:Yue Ochoa RN) Med Hx INDIGO VAT TENDER CLOTH Surgery: No (05/29/2016 03:32:Yue Ochoa RN) Med Hx Hospitalization/Surgery: No (05/29/2016 03:32:Yue Ochoa RN) Med Hx Anesthetic Complications: No (05/29/2016 03:32:Yue Ochoa RN) Med Hx Abnormal Pap Smear: Yes (05/29/2016 03:32:Yue Ochoa RN) Other Medical Diseases: No (05/29/2016 03:32:Yue Ochoa RN) Med Hx Significant Family Hx: No (05/29/2016 03:32:Yue Ochoa RN) INFECTIOUS HISTORY Inf Hx Gonorrhea: Yes (05/29/2016 03:32:Jenni Diaz RN) Inf Hx Chlamydia: No (05/29/2016 03:32:Yue Ochoa RN) Inf Hx Syphilis: No (05/29/2016 03:32:Yue Ochoa RN) Inf Hx HIV/AIDS: No (05/29/2016 03:32:Yue Ochoa RN) Inf Hx Human Papilloma Virus: No (05/29/2016 03:32:Yue Ochoa RN) Inf Hx Pt/Partner Genital Herpes: No (05/29/2016 03:32:Yue Ochoa RN) Inf Hx Tuberculosis/Exposure: No (05/29/2016 03:32:Yue Ochoa RN) Inf Hx Hepatitis B,C: No (05/29/2016 03:32:Yue Ochoa RN) Inf Hx Rash or Viral Illness: No (05/29/2016 03:32:Yue Ochoa RN) Details of Infectious Hx: 2015 (05/29/2016 03:32:Yue Ochoa RN) GENETIC HISTORY Gen Hx Age >=35 at TEX: Yes (05/29/2016 03:32:Yue Ochoa RN) Gen Hx Thalassemia: No (05/29/2016 03:32:Yue Ochoa RN) Gen Hx Congenital Heart Defect: No (05/29/2016 03:32:Yue Ochoa RN) Gen Hx Neural Tube Defect: No (05/29/2016 03:32:Yue Ochoa RN) Gen Hx Down's Syndrome: No (05/29/2016 03:32:Yue Ochoa RN) Gen Hx Yovany-Sachs: No (05/29/2016 03:32:Yue Ochoa RN) Gen Hx Jaspreet: No (05/29/2016 03:32:Yue Ochoa RN) Gen Hx Familial Dysautonomia: No (05/29/2016 03:32:Yue Ochoa RN) Gen Hx Sickle Cell Disease/Trait: No (05/29/2016 03:32:Yue Ochoa RN) Gen Hx Hemophilia/Blood Disorder: No (05/29/2016 03:32:Yue Ochoa RN) Gen Hx Muscular Dystrophy: No (05/29/2016 03:32:Yue Ochoa RN) Gen Hx Cystic Fibrosis: No (05/29/2016 03:32:Yue Ochoa RN) Gen Hx Huntingtons Chorea: No (05/29/2016 03:32:Yue Ochoa RN) Gen Hx Mental Retardation/Autism: No (05/29/2016 03:32:Yue Ochoa RN) Gen Hx Tested for Fragile X: No (05/29/2016 03:32:Yue Ochoa RN) Gen Hx Other Inher/Chromosomal: No (05/29/2016 03:32:Yue Ochoa RN) Gen Hx Maternal Metabolic DO: No (05/29/2016 03:32:Yue Ochoa RN) Gen Hx Pt Father or FOB Defect: No (05/29/2016 03:32:Yue Ochoa RN) Gen Hx Other Genetic History: No (05/29/2016 03:32:Yue Ochoa RN) Gen Hx Drugs/Meds since LMP: Yes (05/29/2016 03:32:Yue Ochoa RN) Gen Hx Medications: PNV, iron, cephalexin (05/29/2016 03:32:Yue Ochoa RN) Details of Genetic History: FOB is 36 years old (05/29/2016 03:32:Yue Ochoa RN)
--- NOTE | 2016-06-05 06:12 | L&D Current Admission ---
Current Admit Datetime Report Generated by CPN: 06/05/2016 06:00 ADMISSION INFORMATION Current Admit Date/Time: 05/29/2016 04:08 (05/29/2016 04:05:Chana Randall RN) Reason for Admission: Rupture of Membranes (05/29/2016 04:02:Chana Randall RN) Chief Complaint: Suspected Rupture of Membranes (05/29/2016 04:05:Chana Randall RN) Medications During : Ferrous Sulfate (Iron); Vitamin (05/29/2016 04:05:Chana Randall RN) EGA per Dates: 39.1 (05/29/2016 04:05:QS system process) Method of Arrival: Wheelchair (05/29/2016 04:02:Chana Randall RN) Admitted From: Home (05/29/2016 04:02:Chana Randall RN) Reason for Induction: Not Applicable (05/29/2016 04:02:Chana Randall RN) Records Available: Yes (05/29/2016 04:02:Chana Randall RN) General Admission Information: Reviewed; Confirmed (05/29/2016 04:02:Chana Randall RN) General Admission Reviewed By: Stacie Randall RN (05/29/2016 04:02:Chana Randall RN) BELONGINGS/ADVANCED DIRECTIVES Other Belongings: see paper belongings form (05/29/2016 04:02:Chana Randall RN) Disposition of Belongings: Kept with Patient (05/29/2016 04:05:Yue Ochoa RN) Advance Direct for Healthcare: No, and Wants No Information (05/29/2016 04:05:Yue Ochoa RN) Durable Power of Production Metal Sprayer: No (05/29/2016 04:05:Yue Ochoa RN) Living Will: No (05/29/2016 04:05:Yue Ochoa RN) Organ Donor: Yes (05/29/2016 04:05:Yue Ochoa RN) Pt Rights Information Given: Yes (05/29/2016 04:05:Yue Ochoa RN) Pt Understands Pt Rights: Yes (05/29/2016 04:05:Yue Ochoa RN) LEARNING ASSESSMENT Knowledge Level: Understands L_D Process; Understands Care Activities; Had Pre-Hospital Education; Understands Diagnosis (05/29/2016 04:05:Yue Ochoa RN) Barriers to Learning: Visual Deficit (05/29/2016 04:05:Yue Ochoa RN) Learning Readiness: Motivated (05/29/2016 04:05:Yue Ochoa RN) Learns Best By: 1 to 1 Instruction; Reading; Videos; Group Discussion; Demonstration (05/29/2016 04:05:Yue Ochoa RN) Learning Needs: Labor and Delivery Process; Pain Management; Symptoms to Report; Treatment Plan; Medication (05/29/2016 04:05:Yue Ochoa RN) Learning Assessment Comments: Needs glasses (05/29/2016 04:05:Yue Ochoa RN) DOMESTIC VIOLANCE SCREENING Dom Viol Threatened/Hurt: No (05/29/2016 04:05:Yue Ochoa RN) Hx of Abuse/Neglect past 2yrs: No (05/29/2016 04:05:Yue Ochoa RN) Feel Unsafe Going Home: No (05/29/2016 04:05:Yue Ochoa RN) Addt'l Observ Indicating Abuse: No (05/29/2016 04:05:Yue Ochoa RN) Reason Unable to Complete Screen: N/A, Screen Completed (05/29/2016 04:05:Yue Ochoa RN) Considered Personal Harm/Suicide: No (05/29/2016 04:05:Yue Ochoa RN) NUTRITIONAL/FUNCTIONAL SCREENING Problem with Appetite >5 Days: No (05/29/2016 04:05:Yue Ochoa RN) Chew/Swallow Difficulties: No (05/29/2016 04:05:Yue Ochoa RN) Inappropriate Wt Gain/Loss: No (05/29/2016 04:05:Yue Ochoa RN) Presence Skin Breakdown/Ulcer: No (05/29/2016 04:05:Yue Ochoa RN) Special Diet: No (05/29/2016 04:05:Yue Ochoa RN) Pt Requests Heating And Refrigeration Inspector Visit: No (05/29/2016 04:05:Yue Ochoa RN) Hx of Any of the Following?: N/A (05/29/2016 04:05:Yue Ochoa RN) New Diagnosis of: N/A (05/29/2016 04:05:Yue Ochoa RN) Requires Assist w/Ambulation: No (05/29/2016 04:05:Yue Ochoa RN) Uses Assist Device to Ambulate: No (05/29/2016 04:05:Yue Ochoa RN) Pt Requires Help w/ADL's: No (05/29/2016 04:05:Yue Ochoa RN)
--- NOTE | 2016-06-06 06:13 | L&D General Admission ---
General Admit Datetime Report Generated by CPN: 06/06/2016 06:00 INFORMATION Patient Age: 20 (04/27/2016 12:09:QS system process) EDC: 06/04/2016 00:00 (05/29/2016 03:32:Chana Randall RN) : 1 (05/29/2016 03:32:Yue Ring, RN) Para: 0 (05/29/2016 03:32:Yue Ring, RN) Term: 0 (05/29/2016 03:32:Yue Ring, RN) : 0 (05/29/2016 03:32:Yue Ring, RN) Spontaneous Abortions: 0 (05/29/2016 03:32:Yue Ring, RN) Induced Abortions: 0 (05/29/2016 03:32:Yue Ring, RN) Livin (05/29/2016 03:32:Yue Ring, RN) Cesareans: 0 (05/29/2016 03:32:Yue Ring, RN) VBACs: 0 (05/29/2016 03:32:Yue Ring, RN) Ectopic: 0 (05/29/2016 03:32:Yue Ochoa RN) Multiple Births: 0 (05/29/2016 03:32:Yue Ochoa RN) Baby, Number in Womb: 1 (05/29/2016 03:32:Yue Ochoa RN) CARE Primary Merchant Seaman: [facility] (05/29/2016 03:32:Chana Randall RN) Adequate Care: Yes (05/29/2016 03:32:Yue Ochoa RN) Height (in): 64 (05/30/2016 12:08:QS system process) ALLERGIES Medication Allergy: No (05/29/2016 03:32:Yue Ochoa RN) Medication Allergies: pineapple (05/29/2016) (05/29/2016 04:38:QS system process) Latex Allergy: No Latex Allergies (05/29/2016 03:32:Yue Ochoa RN) Food Allergies: pineapple (05/29/2016 03:32:Jenni Diaz RN) COMMUNICATION Primary Language: Filipino (05/29/2016 03:32:Yue Ochoa RN) Medical Tx Preferred Language: Filipino (05/29/2016 03:32:Yue Ochoa RN) Filipino Communication Ability: Speaks Filipino; Reads Filipino (05/29/2016 03:32:Jenni Diaz RN) Communication Barrier(s): None (05/29/2016 03:32:Jenni Diaz RN) DEMOGRAPHICS Address: [address] [place] [id number] (04/27/2016 12:09:QS system process) Zipcode: [phone] (04/27/2016 12:09:QS system process) Home (04/27/2016 12:09:QS system process) Work (04/27/2016 12:09:QS system process) SSN: [id number] (04/27/2016 12:09:QS system process) Next of Kin Name: HAYES DIETRICH (04/27/2016 12:09:QS system process) Next of Kin (04/27/2016 12:09:QS system process) Next of Kin Relationship: OR (04/27/2016 12:09:QS system process) Date of : 1995 (04/27/2016 12:09:QS system process) Marital Status: Single (04/27/2016 12:09:QS system process) Sex: Female (04/27/2016 12:09:QS system process) Race: (04/27/2016 12:09:QS system process) Ethnicity: Non- or (04/27/2016 12:09:QS system process) Worship: None (04/27/2016 12:09:QS system process) DRUG AND ALCOHOL USE Alcohol: No (05/29/2016 03:32:Yue Ring, RN) Cigarettes: Never Smoker. [id number] (05/29/2016 03:32:Yue Ring, RN) Marijuana: No (05/29/2016 03:32:Yue Ring, RN) Cocaine: No (05/29/2016 03:32:Yue Ring, RN) Other Illicit Drugs: No (05/29/2016 03:32:Yue Ring, RN) VACCINE HISTORY Influenza Vaccine: No (05/29/2016 03:32:Yue Ochoa RN) Pneumococcal Vaccine: No (05/29/2016 03:32:Yue Ochoa RN) Tetanus Vaccine: Yes (05/29/2016 03:32:Yue Ochoa RN) Tdap Vaccine: Yes (05/29/2016 03:32:Yue Ochoa RN) Tdap Date: 2015 (05/29/2016 03:32:Yue Ochoa RN) Hepatitis B Vaccine: Yes (05/29/2016 03:32:Yue Ochoa RN) Ram Car Operator: [facility] (05/29/2016 03:32:uYe Ochoa RN) Feeding Preference: Breast (05/29/2016 03:32:Yue Ochoa RN) Benefit of Breast Feed Discussed: Yes (05/29/2016 03:32:Yue Ochoa RN) Circumcision: Yes (05/29/2016 03:32:Yue Ochoa RN) Classes Attended: No (05/29/2016 03:32:Yue Ochoa RN) Tubal Ligation: No (05/29/2016 03:32:Yue Ochoa RN) Tubal Authorization Signed: N/A (05/29/2016 03:32:Yue Ochoa RN) Consent: N/A (05/29/2016 03:32:Yue Ochoa RN) Consent Signed: N/A (05/29/2016 03:32:Yue Ochoa RN) Pain Management Plans: Epidural (05/29/2016 03:32:Yue Ochoa RN) Plans for Labor and Delivery: None (05/29/2016 03:32:Yue Ochoa RN) Support Person: Vj (05/29/2016 03:32:Yue Ochoa RN) Support Person Relationship: Significant Other (05/29/2016 03:32:Yue Ochoa RN) Cultural/Spritual Practice: No (05/29/2016 03:32:Yue Ochoa RN) Spir/Cult Dietary Needs: No (05/29/2016 03:32:Yue Ochoa RN) LIVING SITUATION/DISCHARGE PLAN Living Arrangements: House (05/29/2016 03:32:Yue Ochoa RN) Adequate Access to:: Electric; Heat; Refrigeration; Plumbing/Running water; Phone; Transportation (05/29/2016 03:32:Yue Ochoa RN) WIC Program: No (05/29/2016 03:32:Yue Ochoa RN) Discharge Automobile Repossessor Person: Vj (05/29/2016 03:32:Yue Ochoa RN) Person to Help after Discharge: Vj (05/29/2016 03:32:Yue Ochoa RN) Currently Using Commun Resources: Yes (05/29/2016 03:32:Yue Ochoa RN) Specify Current Resource Used: Medicaid (05/29/2016 03:32:Yue Ochoa RN) Outside Agency/Refuse And Recycling Worker: No (05/29/2016 03:32:Yue Ochoa RN) Car Seat for Discharge: Yes (05/29/2016 03:32:Yue Ochoa RN) Adoption Requested: No (05/29/2016 03:32:Yue Ochoa RN) Pt Contact w/infant Post : N/A (05/29/2016 03:32:Yue Ochoa RN) LABS Blood Type: AB Negative (05/29/2016 03:32:Marichuy Rios RN) Antibody Screen: Negative (05/29/2016 03:32:Yue Ochoa RN) Hemoglobin: 9.4 L (05/30/2016 06:05:QS system process) Hematocrit: 27.3 L (05/30/2016 06:05:QS system process) MCV: 79 L (05/30/2016 06:05:QS system process) Group Beta Strep: negative (05/29/2016 03:32:Marichuy Rios RN) Gonorrhea: Negative (05/29/2016 03:32:Marichuy Rios RN) Chlamydia: Negative (05/29/2016 03:32:Marichuy Rios RN) RPR/VDRL: Nonreactive (05/29/2016 03:32:Marichuy Rios RN) HIV Results: negative (Annotations: Data stored by [facility] on behalf of user) (05/29/2016 03:32:Jenni Diaz RN) Hepatitis B: Negative (05/29/2016 03:32:Jenni Diaz RN) Rubella: Immune (05/29/2016 03:32:Jenni Diaz RN) OB/PREVIOUS HISTORY Current Procedures: Ultrasound; NST (05/29/2016 03:32:Jenni Diaz RN) History of Previous : No (05/29/2016 03:32:Yue Ochoa RN) History of Gestational Diabetes: No (05/29/2016 03:32:Yue Ochoa RN) History of PIH: No (05/29/2016 03:32:Yue Ochoa RN) History of Incompetent Cervix: No (05/29/2016 03:32:Yue Ochoa RN) History of Placenta Previa/Abrup: No (05/29/2016 03:32:Yue Ochoa RN) History of Macrosomia: No (05/29/2016 03:32:Yue Ochoa RN) History of IUGR: No (05/29/2016 03:32:Yue Ochoa RN) History of Hemorrhage: No (05/29/2016 03:32:Yue Ochoa RN) History of Loss/Stillborn: No (05/29/2016 03:32:Yue Ochoa RN) History of : No (05/29/2016 03:32:Yue Ochoa RN) History of D (Rh) Sensitization: No (05/29/2016 03:32:Yue Ochoa RN) History Recurrent Loss/Stillborn: No (05/29/2016 03:32:Yue Ochoa RN) History Depression/PP Depression: No (05/29/2016 03:32:Yue Ochoa RN) History of Uterine Anomaly/PRAFUL: No (05/29/2016 03:32:Yue Ochoa RN) History of Infertility: No (05/29/2016 03:32:Yue Ochoa RN) History of ART Treatment: No (05/29/2016 03:32:Yue Ochoa RN) History of PRAFUL: No (05/29/2016 03:32:Yue Ochao RN) Comments Obstetrical History: G1: current (05/29/2016 03:32:Yue Ochoa RN) MEDICAL HISTORY Med Hx Diabetes: No (05/29/2016 03:32:Yue Ochoa RN) Med Hx Hypertension: No (05/29/2016 03:32:Yue Ochoa RN) Med Hx Heart Disease: No (05/29/2016 03:32:Yue Ochoa RN) Med Hx Autoimmune Disorder: No (05/29/2016 03:32:Yue Ochoa RN) Med Hx Kidney Disease/UTI: No (05/29/2016 03:32:Yue Ochoa RN) Med Hx Neurologic/Epilepsy: No (05/29/2016 03:32:uYe Ochoa RN) Med Hx Psychiatric Disorders: No (05/29/2016 03:32:Yue Ochoa RN) Med Hx Hepatitis/Liver Disease: No (05/29/2016 03:32:Yue Ochoa RN) Med Hx Varicosities/Phlebitis: No (05/29/2016 03:32:Yue Ochoa RN) Med Hx Thyroid Dysfunction: No (05/29/2016 03:32:Yue Ochoa RN) Med Hx Trauma/Violence: No (05/29/2016 03:32:Yue Ochoa RN) Med Hx Blood Transfusion: No (05/29/2016 03:32:Yue Ochoa RN) Med Hx Pulmonary (Asthma,TB): No (05/29/2016 03:32:Yue Ochoa RN) Med Hx Breast: No (05/29/2016 03:32:Yue Ochoa RN) Med Hx PSYCHOLOGY INTERN Surgery: No (05/29/2016 03:32:Yue Ochoa RN) Med Hx Hospitalization/Surgery: No (05/29/2016 03:32:Yue Ochoa RN) Med Hx Anesthetic Complications: No (05/29/2016 03:32:Yue Ochoa RN) Med Hx Abnormal Pap Smear: Yes (05/29/2016 03:32:Yue Ochoa RN) Other Medical Diseases: No (05/29/2016 03:32:Yue Ochoa RN) Med Hx Significant Family Hx: No (05/29/2016 03:32:Yue Ochoa RN) INFECTIOUS HISTORY Inf Hx Gonorrhea: Yes (05/29/2016 03:32:Jenni Diaz RN) Inf Hx Chlamydia: No (05/29/2016 03:32:Yue Ochoa RN) Inf Hx Syphilis: No (05/29/2016 03:32:Yue Ochoa RN) Inf Hx HIV/AIDS: No (05/29/2016 03:32:Yue Ochoa RN) Inf Hx Human Papilloma Virus: No (05/29/2016 03:32:Yue Ochoa RN) Inf Hx Pt/Partner Genital Herpes: No (05/29/2016 03:32:Yue Ochoa RN) Inf Hx Tuberculosis/Exposure: No (05/29/2016 03:32:Yue Ochoa RN) Inf Hx Hepatitis B,C: No (05/29/2016 03:32:Yue Ochoa RN) Inf Hx Rash or Viral Illness: No (05/29/2016 03:32:Yue Ochoa RN) Details of Infectious Hx: 2015 (05/29/2016 03:32:Yue Ochoa RN) GENETIC HISTORY Gen Hx Age >=35 at TEX: Yes (05/29/2016 03:32:Yue Ochoa RN) Gen Hx Thalassemia: No (05/29/2016 03:32:Yue Ochoa RN) Gen Hx Congenital Heart Defect: No (05/29/2016 03:32:Yue Ochoa RN) Gen Hx Neural Tube Defect: No (05/29/2016 03:32:Yue Ochoa RN) Gen Hx Down's Syndrome: No (05/29/2016 03:32:Yue Ochoa RN) Gen Hx Yovany-Sachs: No (05/29/2016 03:32:Yue Ochoa RN) Gen Hx Jaspreet: No (05/29/2016 03:32:Yue Ochoa RN) Gen Hx Familial Dysautonomia: No (05/29/2016 03:32:Yue Ochoa RN) Gen Hx Sickle Cell Disease/Trait: No (05/29/2016 03:32:Yue Ochoa RN) Gen Hx Hemophilia/Blood Disorder: No (05/29/2016 03:32:Yue Ochoa RN) Gen Hx Muscular Dystrophy: No (05/29/2016 03:32:Yue Ochoa RN) Gen Hx Cystic Fibrosis: No (05/29/2016 03:32:Yue Ochoa RN) Gen Hx Huntingtons Chorea: No (05/29/2016 03:32:Yue Ochoa RN) Gen Hx Mental Retardation/Autism: No (05/29/2016 03:32:Yue Ocoha RN) Gen Hx Tested for Fragile X: No (05/29/2016 03:32:Yue Ochoa RN) Gen Hx Other Inher/Chromosomal: No (05/29/2016 03:32:Yue Ochoa RN) Gen Hx Maternal Metabolic DO: No (05/29/2016 03:32:Yue Ochoa RN) Gen Hx Pt Father or FOB Defect: No (05/29/2016 03:32:Yue Ochoa RN) Gen Hx Other Genetic History: No (05/29/2016 03:32:Yue Ochoa RN) Gen Hx Drugs/Meds since LMP: Yes (05/29/2016 03:32:Yue Ochoa RN) Gen Hx Medications: PNV, iron, cephalexin (05/29/2016 03:32:Yue Ochoa RN) Details of Genetic History: FOB is 36 years old (05/29/2016 03:32:Yue Ochoa RN)
== END 2016-05-30 19:02 | disposition home or self-care (01) | DRG 775 ==
LOC: LC 03:35 → LR 03:51 → 2S 08:21
PROVIDERS: ADMIT Specialist; ATTEND Specialist
PROC: 10E0XZZ Delivery of Products of Conception, External Approach (ICD-10-PCS; principal; 2016-05-29)
PROC: 4A1HXCZ Monitoring of Products of Conception, Cardiac Rate, External Approach (ICD-10-PCS; 2016-05-29)
PROC: 3E0234Z Introduction of Serum, Toxoid and Vaccine into Muscle, Percutaneous Approach (ICD-10-PCS; 2016-05-30)
DX: O62.3 Precipitate labor (principal); O26.893 Other specified pregnancy related conditions, third trimester; O77.0 Labor and delivery complicated by meconium in amniotic fluid; Z67.31 Type AB blood, Rh negative; Z37.0 Single live birth; Z3A.39 39 weeks gestation of pregnancy
CPT/HCPCS: 36415; 59025; 80307; 81005; 85025; 85027; 85461; 86592; 86850; 86900; 86901; J2370; J2590; J2790; J3010; J3490

== ENCOUNTER 2018-03-06 09:21 | Emergency (ER) | payer MEDICAID ==
[2018-03-06 09:28] VITALS: BP 111/52
--- NOTE | 2018-03-06 10:06 | RADIOLOGY REPORT (SQ) ---
EXAM DESCRIPTION: SHOULDER LEFT 2 OR MORE VIEWS COMPLETED DATE/TIME: 03/06/2018 9:54 am REASON FOR STUDY: pain x1 year, reinjured COMPARISON: None. NUMBER OF VIEWS: Three views left shoulder. LIMITATIONS: None. FINDINGS: There is no acute or significant bone, joint or soft tissue abnormality. OTHER: No other significant finding. IMPRESSION: NORMAL STUDY. TECHNICAL DOCUMENTATION: JOB ID: [id number] Reading location - IP/workstation name: [email or web address]
[2018-03-06] MEDS ORDERED: KETOROLAC TROMETHAMINE 60 MG/2 ML SDV IM ONE (10:19)
--- NOTE | 2018-03-06 10:23 | ER Document Report ---
HPI - HPI Pain Level: 4 Notes: Patient is a 22-year-old female who presents with chief complaint of left shoulder pain. Patient reports the pain has been ongoing for approximately 1 year with worsening over the last few days. Patient denies any specific injury and has not been diagnosed with any shoulder problems. Patient reports she has just been "dealing with it". - CONSTITUTIONAL Constitutional: DENIES: Fever, Chills - EENT EENT: DENIES: Sore Throat, Ear Pain, Eye problems - NEURO Neurology: DENIES: Headache - CARDIOVASCULAR Cardiovascular: DENIES: Chest pain - RESPIRATORY Respiratory: DENIES: Trouble Breathing, Coughing - GASTROINTESTINAL Gastrointestinal: DENIES: Abdominal Pain, Black / Bloody Stools - REPRODUCTIVE Reproductive: REPORTS: : - MUSCULOSKELETAL Musculoskeletal: REPORTS: Extremity pain - left upper extremity Past Medical History - General Information source: Patient - Social History Smoking Status: Never Smoker Chew tobacco use (# tins/day): No Frequency of alcohol use: None Drug Abuse: None Family History: Reviewed & Not Pertinent Patient has suicidal ideation: No Patient has homicidal ideation: No Renal/ Medical History: Denies: Hx Peritoneal Dialysis GI Medical History: Reports: Hx Gastroesophageal Reflux Disease - Immunizations Hx Diphtheria, Pertussis, Tetanus Vaccination: Yes Vertical Provider Document - CONSTITUTIONAL Notes: PHYSICAL EXAMINATION: GENERAL: Well-appearing, well-nourished and in no acute distress. HEAD: Atraumatic, normocephalic. EYES: Pupils equal round extraocular movements intact, conjunctiva are normal. ENT: Nares patent NECK: Normal range of motion LUNGS: No respiratory distress Musculoskeletal: Normal range of motion, cap refill less than 3 seconds, normal motor and sensation distal to area of pain, normal strength and full range of motion. NEUROLOGICAL: Normal speech, normal gait. PSYCH: Normal mood, normal affect. SKIN: Warm, Dry, normal turgor, no rashes or lesions noted. - INFECTION CONTROL TRAVEL OUTSIDE OF THE [place] IN LAST 30 DAYS: No Course - Re-evaluation Re-evalutation: 03/06/18 10:20 X-ray is negative for any acute finding. Patient will be given IM Toradol and discharged home. Patient will be given information for orthopedic as she states this is been ongoing for over one year. Encouraged her to follow-up with them for physical therapy or possible MRI. - Vital Signs Vital signs: Temp Pulse Resp BP Pulse Ox 98.5 F 76 16 111/52 L 99 03/06/18 09:26 03/06/18 09:26 03/06/18 09:26 03/06/18 09:26 03/06/18 09:26 Discharge - Discharge Clinical Impression: Shoulder pain, left Qualifiers: Chronicity: chronic Qualified Code(s): M25.512 - Pain in left shoulder; G89.29 - Other chronic pain; G89.29 - Other chronic pain Condition: Stable Disposition: HOME, SELF-CARE Additional Instructions: The x-ray of your shoulder is normal. Given that you have are complaining of this pain for over one year you may need physical therapy or an MRI. Either your primary care provider or orthopedics would need to order this. Please take the medication as prescribed. Please also use the shoulder exercises that are outlined below. Exercise Program for the Shoulder Since the shoulder moves in so many directions, the joint attachment is weak. Muscles provide most of the stability to the shoulder. You must exercise your shoulder to prevent painful instability or stiffening. PASSIVE - These may be begun within a few days of the injury. While standing, lean forward, allowing the arm to hang down towards the floor. Move the arm in small circles while slowly twisting your chest towards and away from the hanging arm. Do this for one minute. ACTIVE - These may be performed when the doctor gives permission. Begin with the arms at the sides. Raise the arms forward (shoulder's width apart) until they reach shoulder level. Then slowly swing both arms back until they are aiming straight out away from each other. Then bring them forward again, and finally, lower them to your sides. Repeat 20 to 30 times. As you improve, put weights in your hands for the exercise. Start with one pound, and work up to 10 pounds. Never use more than is comfortable. Athletes may work up to 30 pounds. Prescriptions: Ketorolac Tromethamine [Toradol 10 mg Tablet] 10 mg PO Q6HP PRN #20 tablet PRN Reason: Forms: Return to Work Referrals: ROBBY JACKSON MD [ACTIVE STAFF] - Follow up as needed
== END 2018-03-06 11:15 | disposition home or self-care (01) ==
LOC: ER 09:21
DX: G89.29 Other chronic pain (principal); M25.512 Pain in left shoulder
CPT/HCPCS: 99283; 96372; 73030; J1885

== ENCOUNTER 2019-07-26 09:34 | Emergency (ER) | payer BC, MEDICAID ==
--- NOTE | 2019-07-26 10:37 | RADIOLOGY REPORT (SQ) ---
EXAM DESCRIPTION: SHOULDER RIGHT 2 OR MORE VIEWS COMPLETED DATE/TIME: 07/26/2019 10:23 am REASON FOR STUDY: prox biceps pain COMPARISON: None. NUMBER OF VIEWS: Three views. TECHNIQUE: Internal rotation, external rotation, and Y view images acquired of the right shoulder. LIMITATIONS: None. FINDINGS: MINERALIZATION: Normal. BONES: No acute fracture. No worrisome bone lesions. JOINTS: No dislocation. VISUALIZED LUNGS AND RIBS: No pneumothorax. No rib fracture. SOFT TISSUES: No radiopaque foreign body. OTHER: No other significant finding. IMPRESSION: NEGATIVE STUDY OF THE RIGHT SHOULDER. NO RADIOGRAPHIC EVIDENCE OF ACUTE INJURY. TECHNICAL DOCUMENTATION: JOB ID: [id number] 2010 [employer]- All Rights Reserved Reading location - IP/workstation name: [email or web address]
--- NOTE | 2019-07-26 10:40 | ER Document Report ---
HPI - HPI Time Seen by Provider: 07/26/19 10:06 Pain Level: 3 Notes: CHIEF COMPLAINT: Right proximal biceps pain HPI: 24-year-old female presenting to the emergency department complaining of right proximal biceps and shoulder pain. Patient does do a lot of lifting and moving of small objects with repetitive motion at work. No specific trauma where patient noted an acute injury. Has taken no medications for her symptoms. States she has a history of tendinitis in the other shoulder that she does not follow with orthopedics for ROS: See HPI - all other systems were reviewed and are otherwise negative Constitutional: no fever Integumentary: no rash Allergy: no hives Musculoskeletal: + extremity pain or swelling Neurological: no numbness/tingling, no weakness MEDICATIONS: I agree with the patient medications as charted by the RN. ALLERGIES: I agree with the allergies as charted by the RN. PAST MEDICAL HISTORY/PAST SURGICAL HISTORY: Reviewed and agree as charted by RN. SOCIAL HISTORY: Reviewed and agree as charted by RN. FAMILY HISTORY: No significant familial comorbid conditions directly related to patient complaint EXAM: Reviewed vital signs as charted by RN. CONSTITUTIONAL: Alert and oriented and responds appropriately to questions. Wel l-appearing; well-nourished, no acute distress HEAD: Normocephalic; atraumatic EYES: PERRL; Conjunctivae clear, sclerae non-icteric ENT: normal nose; no rhinorrhea; moist mucous membranes NECK: Supple without meningismus; non-tender; no cervical lymphadenopathy, no masses CARD: symmetric distal pulses RESP: Normal chest excursion without splinting or tachypnea; ABD/GI: non-distended BACK: The back appears normal and is non-tender to palpation EXT: Normal ROM in all joints; no cyanosis, no effusions, no edema. There is mild tenderness at the insertion point of the proximal biceps tendon in the right shoulder. There is no tenderness around the shoulder girdle otherwise on palpation or range of motion SKIN: Normal color for age and race; warm; dry; good turgor; no acute lesions noted NEURO: Moves all extremities equally; Motor and sensory function intact PSYCH: The patient's mood and manner are appropriate. Grooming and personal hygiene are appropriate. MDM: 24-year-old female with likely proximal biceps tendinitis. Will obtain x- ray of the shoulder to ensure no bony injury that there was nonacute trauma that would suggest a fracture, she does not appear to have ruptured the biceps tendon on exam. If x-ray negative anticipate discharge home with anti-inflammatories orthopedic referral - REPRODUCTIVE Reproductive: DENIES: : - MUSCULOSKELETAL Musculoskeletal: REPORTS: Extremity pain - right arm Past Medical History - Social History Smoking Status: Unknown if Ever Smoked Chew tobacco use (# tins/day): No Frequency of alcohol use: None Drug Abuse: None Family History: Reviewed & Not Pertinent Patient has suicidal ideation: No Patient has homicidal ideation: No Renal/ Medical History: Denies: Hx Peritoneal Dialysis GI Medical History: Reports: Hx Gastroesophageal Reflux Disease - Immunizations Hx Diphtheria, Pertussis, Tetanus Vaccination: Yes Vertical Provider Document - INFECTION CONTROL TRAVEL OUTSIDE OF THE [place] IN LAST 30 DAYS: No Course - Re-evaluation Re-evalutation: 07/26/19 10:45 X-ray negative for fracture - Vital Signs Vital signs: Temp Pulse Resp BP Pulse Ox 98.3 F 71 16 119/70 97 07/26/19 09:39 07/26/19 09:39 07/26/19 09:39 07/26/19 09:39 07/26/19 09:39 Discharge - Discharge Clinical Impression: Biceps tendinitis of right shoulder Condition: Stable Disposition: HOME, SELF-CARE Instructions: Tendonitis ([facility]) Additional Instructions: Ice to the proximal bicep area twice daily for 5 to 10 minutes at a time do not place ice directly on the skin. Take the anti-inflammatories as prescribed. Follow-up closely with orthopedics for further evaluation and treatment x-ray imaging did not reveal evidence of a fracture today Prescriptions: Diclofenac Sodium [Voltaren 50 Mg Tablet.] 50 mg PO BID #20 tablet. Referrals: DAI TYSON MD [ACTIVE PROVISIONAL STAFF] - Follow up as needed
[2019-07-26 11:55] VITALS: BP 109/69
== END 2019-07-26 11:54 | disposition home or self-care (01) ==
LOC: ER 09:34
DX: M75.21 Bicipital tendinitis, right shoulder (principal)
CPT/HCPCS: 99283

== ENCOUNTER 2020-03-16 04:18 | Emergency (ER) | payer OTHER, BC ==
[2020-03-16] MEDS ORDERED: ACETAMINOPHEN SOLN 325 MG/10.15 ML UDCUP PO ONE (05:17)
[2020-03-16] MEDS ORDERED: METHOCARBAMOL 750 MG TABLET PO ONE (09:27)
[2020-03-16] MEDS ORDERED: IBUPROFEN 600 MG TABLET PO ONE (09:27)
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
--- NOTE | 2020-03-16 10:13 | EKG REPORT ---
SEVERITY:- ABNORMAL ECG - ECTROPIC ATRIAL RHYTHM ATRIAL PREMATURE COMPLEX LEFT AXIS DEVIATION ABNORMAL T INVERSION INFEROR AND SEPTAL LEADS : Confirmed by: Kareem Ha MD 16-Mar-2020 10:12:43
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
[2020-03-16 12:13] VITALS: BP 132/68
== END 2020-03-16 12:13 | disposition home or self-care (01) ==
LOC: ER 04:18
DX: M25.522 Pain in left elbow (principal); R07.81 Pleurodynia; M79.651 Pain in right thigh; M79.652 Pain in left thigh; R07.1 Chest pain on breathing; M25.572 Pain in left ankle and joints of left foot; V43.52XA Car driver injured in collision with other type car in traffic accident, initial encounter
CPT/HCPCS: 93005; 99285; 71046; 73080; 93010; J3490 ×2

== ENCOUNTER 2020-05-06 12:43 | Emergency (ER) | payer BC, OTHER ==
--- NOTE | 2020-05-06 13:07 | ER Document Report ---
ED Medical Screen (RME) - General Chief Complaint: Psych Problem Stated Complaint: PSYCH EVAL Time Seen by Provider: 05/06/20 13:04 Mode of Arrival: Ambulatory Information source: Patient Notes: 24-year-old female presents to ED for mental health problems. She states she went to her primary care because she was feeling very down and depressed and they told her to please come to the emergency room so that she could talk to someone. She states she is not having any thoughts of hurting herself or anyone else. States she did lock herself in the bedroom all last week while she was out of town but she has not heard any say of her being suicidal at this time. She does not have any mental illness diagnosed at this time. Mother states she does have depression. States she does not use any cigarettes drinks maybe monthly and no illicit drugs. He states her last menstrual period was last week. I have greeted and performed a rapid initial assessment of this patient. A comprehensive ED assessment and evaluation of the patient, analysis of test results and completion of medical decision making process will be conducted by an additional ED providers. TRAVEL OUTSIDE OF THE [place] IN LAST 30 DAYS: No - Related Data Allergies/Adverse Reactions: pineapple [Pineapple] Adverse Reaction (Verified 05/06/20 13:01) Past Medical History Renal/ Medical History: Denies: Hx Peritoneal Dialysis GI Medical History: Reports: Hx Gastroesophageal Reflux Disease - Immunizations Hx Diphtheria, Pertussis, Tetanus Vaccination: Yes Physical Exam - Vital signs Vitals: Temp Pulse Resp BP Pulse Ox 98.4 F 101 H 16 124/84 97 05/06/20 12:58 05/06/20 12:58 05/06/20 12:58 05/06/20 12:58 05/06/20 12:58 Course - Vital Signs Vital signs: Temp Pulse Resp BP Pulse Ox 98.4 F 101 H 16 124/84 97 05/06/20 12:58 05/06/20 12:58 05/06/20 12:58 05/06/20 12:58 05/06/20 12:58
[2020-05-06 13:39] LABS: APPEARANCE,URINE SLIGHTLY-CLOUDY; BILIRUBIN,URINE NEGATIVE (NEGATIVE); COLOR,URINE YELLOW; GLUCOSE, URINE NEGATIVE (NEGATIVE); KETONES,URINE NEGATIVE (NEGATIVE); LEUKOCYTE ESTERASE,URINE TRACE (NEGATIVE); NITRITE,URINE NEGATIVE (NEGATIVE); PROTEIN,URINE NEGATIVE (NEGATIVE); URINE SPECIFIC GRAVITY 1.025; UROBILINOGEN,URINE NEGATIVE mg/dL (<2.0)
[2020-05-06 13:47] LABS: ABSOLUTE BASOPHILS # (AUTO) 0.1 10^3/uL (0.0-0.2); ABSOLUTE EOSINOPHILS # (AUTO) 0.1 10^3/uL (0.0-0.6); ABSOLUTE LYMPHOCYTES (AUTO) 1.8 10^3/uL (0.5-4.7); ABSOLUTE MONOCYTES (AUTO) 0.4 10^3/uL (0.1-1.4); ABSOLUTE NEUT (AUTO) 4.6 10^3/uL (1.7-8.2); BASOPHILS % (AUTO) 0.7 % (0-2); EOSINOPHILS % (AUTO) 1.8 % (0-6); HEMATOCRIT 43.8 % (36.0-47.0); HEMOGLOBIN 14.8 g/dL (12.0-15.5); LYMPHOCYTES % (AUTO) 26.3 % (13-45); MEAN CORPUSCULAR HEMOGLOBIN 28.9 pg (27.0-33.4); MEAN CORPUSCULAR HGB CONC 33.8 g/dL (32.0-36.0); MEAN CORPUSCULAR VOLUME 86 fl (80-97); MONOCYTES % (AUTO) 5.7 % (3-13); PLATELET COUNT 308 10^3/uL (150-450); RED BLOOD COUNT 5.12 10^6/uL (3.72-5.28); RED CELL DISTRIBUTION WIDTH 13.9 % (11.5-14.0); SEGMENTED NEUTROPHILS % (AUTO) 65.5 % (42-78); TOTAL CELLS COUNTED % (AUTO) 100 %
--- NOTE | 2020-05-06 13:49 | ER Document Report ---
ED General <LAZARUS DUMONT - Last Filed: 05/06/20 14:51> - General Mode of Arrival: Ambulatory TRAVEL OUTSIDE OF THE [place] IN LAST 30 DAYS: No - Related Data Home Medications: off brand pepcid <IVONNE PALMER - Last Filed: 05/06/20 19:15> - General Chief Complaint: Suicidal Ideation Stated Complaint: PSYCH EVAL Time Seen by Provider: 05/06/20 13:04 Primary Care Provider: [facility] [Outside] - Follow up as needed [facility] [Outside] - Follow up as needed - HPI Notes: Patient is a 24 y/o female with no medical hx who presents with depression and self-harming behavior. Patient states she has struggled with depression but it became exacerbated last week when her only friend stopped talking to her. She is also going through a break-up which is worsening things. She reports suicidal ideation but has no plan. She reports cutting behavior when she was a teen but she did cut her right ankle last week after everything. She denies any other locations of cuts. She denies homicidal ideation and auditory and visual hallucinations. She denies chest pain, abdominal pain, shortness of breath and fever. She denies any other complaints. (IVONNE PALMER) - Related Data Allergies/Adverse Reactions: pineapple [Pineapple] Adverse Reaction (Verified 05/06/20 13:01) Past Medical History - General Information source: Patient - Social History Smoking Status: Never Smoker Chew tobacco use (# tins/day): No Frequency of alcohol use: Occasional Drug Abuse: None Family History: Reviewed & Not Pertinent Renal/ Medical History: Denies: Hx Peritoneal Dialysis GI Medical History: Reports: Hx Gastroesophageal Reflux Disease - Immunizations Hx Diphtheria, Pertussis, Tetanus Vaccination: Yes <IVONNE PALMER - Last Filed: 05/06/20 19:15> Review of Systems - Review of Systems Constitutional: No symptoms reported EENT: No symptoms reported Cardiovascular: No symptoms reported Respiratory: No symptoms reported Gastrointestinal: No symptoms reported Genitourinary: No symptoms reported Female Genitourinary: No symptoms reported Musculoskeletal: No symptoms reported Skin: No symptoms reported Hematologic/Lymphatic: No symptoms reported Neurological/Psychological: See HPI <IVONNE PALMER - Last Filed: 05/06/20 19:15> Physical Exam <IVONNE PALMER - Last Filed: 05/06/20 19:15> - Vital signs Vitals: Temp Pulse Resp BP Pulse Ox 98.4 F 101 H 16 124/84 97 05/06/20 12:58 05/06/20 12:58 05/06/20 12:58 05/06/20 12:58 05/06/20 12:58 - Notes Notes: PHYSICAL EXAMINATION: VITALS: Vitals reviewed and within normal limits. GENERAL: Well-nourished and in no acute distress. HEAD: Atraumatic, normocephalic. EYES: Pupils equal, round, and reactive to light, extraocular movements intact, sclera anicteric, conjunctiva are normal. ENT: Nares patent. Moist mucous membranes. Oropharynx clear without exudates. NECK: Normal range of motion, supple without lymphadenopathy. LUNGS: Breath sounds clear to auscultation bilaterally and equal. No wheezes, rales, or rhonchi. HEART: Regular, rate, and rhythm without murmurs. ABDOMEN: Soft, nontender, normoactive bowel sounds. No guarding, no rebound. No masses appreciated. EXTREMITIES: Normal range of motion, no pitting or edema. No cyanosis. NEUROLOGICAL: No focal neurological deficits. Moves all extremities sp ontaneously and on command. PSYCH: Depressed mood, normal affect. SKIN: Warm, Dry, normal turgor, no rashes or lesions noted. (IVONNE PALMER) Course - Laboratory Results Result Diagrams: 05/06/20 13:20 05/06/20 13:20 <LAZARUS DUMONT - Last Filed: 05/06/20 14:51> - Laboratory Results Result Diagrams: 05/06/20 13:20 05/06/20 13:20 Critical Laboratory Results Reviewed: No Critical Results - Radiology Results Critical Radiology Results Reviewed: No Critical Results <SPENCERIVONNE M - Last Filed: 05/06/20 19:15> - Re-evaluation Re-evalutation: Patient is a 24-year-old female who presents with depression and suicidal ideation. Vital signs are stable and within normal limits. On exam, patient's mood is depressed but she has a normal affect. CBC and CMP are unremarkable within normal limits. UA shows trace leukocyte esterase and 1+ bacteria. Urine culture ordered. Patient will not be treated currently as she denies dysuria and is asymptomatic. Alcohol, salicylate, and Tylenol levels are all negative. Patient is medically cleared. Psych evaluated the patient and determined she does not meet IVC criteria due to her passive SI. They worked on a plan with the patient and her mother and provided outpatient follow-up and resources. Return precautions and follow-up instructions given. Patient has been cleared from psychiatric services. I reevaluated the patient and she states she is in agreement with the plan that psych has put in place. Patient is safe for discharge as she is both cleared medically and by psych. (IVONNE PALMER) - Vital Signs Vital signs: Temp Pulse Resp BP Pulse Ox 98.1 F 63 16 111/69 99 05/06/20 14:59 05/06/20 14:59 05/06/20 14:59 05/06/20 14:59 05/06/20 14:59 - Laboratory Results Laboratory Results Interpreted: 05/06/20 05/06/20 13:20 13:20 BUN 6 L Calcium 10.5 H AST 52 H ALT 74 H Total Protein 9.0 H Albumin 5.1 H Urine Blood SMALL H Ur Leukocyte Esterase TRACE H Salicylates < 1.0 L Acetaminophen < 10 L - EKG Interpretation by Me Additional EKG results interpreted by me: Sinus arrhythmia with a rate of 59. QTc 401. Left axis deviation. No T wave inversions or ST segment changes in consecutive leads. (IVONNE PALMER) Discharge <LAZARUS DUMONT - Last Filed: 05/06/20 14:51> <IVONNE PALMER - Last Filed: 05/06/20 19:15> - Discharge Clinical Impression: Suicidal ideation Condition: Stable Disposition: HOME, SELF-CARE Additional Instructions: You have been evaluated by both medical and behavioral health teams for passive suicidal ideation and cutting. You have been deemed appropriate for discharge. While in the emergency department you received the following services/or had access to: Medical screening and assessment, nursing services, dietary services, pharmacological services, one-on-one counseling and/or psychotherapy, environ mental services, and continuous observation by a patient area safety manager. Suicidal Ideation Suicidal ideation is a common medical term for thoughts about suicide, which may be as detailed as a formulated plan, without the suicidal act itself. Although most people who undergo suicidal ideation do not commit suicide, some go on to make suicide attempts. The range of suicidal ideation varies greatly from fleeting to detailed planning, role playing, and unsuccessful attempts. While thoughts about suicide are common, most people do not carry out serious actions to commit suicide. However, based upon your evalutation and discussion with you, we believe you are currently at risk to act upon your thoughts of suicide. Therefore, you will be admitted to a facility for inpatient care. Follow up care: You are currently not involved in outpatient therapy or medication management. A referral was made for you for therapy through [facility] [phone] at 1300. You have been given a community outpatient referral list to include phone numbers for [facility] and [facility]. If you experience worsening or a significant change in your symptoms, notify the physician immediately, utilize mobile crisis, or return to the Emergency Department at any time for re- evaluation. Dr. Jackson was consulted to care management of this patient; attending physicians in agreement with recommendations and disposition. Referrals: [facility] [Outside] - Follow up as needed [facility] [Outside] - Follow up as needed
[2020-05-06 13:54] LABS: URINE AMPHETAMINES SCREEN NEGATIVE; URINE BARBITURATES SCREEN NEGATIVE; URINE BENZODIAZEPINES SCREEN NEGATIVE; URINE COCAINE SCREEN NEGATIVE; URINE METHADONE SCREEN NEGATIVE; URINE PHENCYCLIDINE SCREEN NEGATIVE
[2020-05-06 13:57] LABS: URINE MARIJUANA (THC) SCREEN UNCONFIRMED POSITIVE
[2020-05-06 13:59] LABS: ALBUMIN 5.1 g/dL (3.5-5.0); ALKALINE PHOSPHATASE 91 U/L (38-126); ANION GAP 11 (5-19); ASPARTATE AMINO TRANSFERASE 52 U/L (14-36); BILIRUBIN,DIRECT 0.1 mg/dL (0.0-0.4); BILIRUBIN,TOTAL 1.1 mg/dL (0.2-1.3); BLOOD UREA NITROGEN 6 mg/dL (7-20); CALCIUM 10.5 mg/dL (8.4-10.2); CARBON DIOXIDE 28 mmol/L (22-30); CHLORIDE 102 mmol/L (98-107); GLUCOSE 104 mg/dL (75-110); POTASSIUM 4.5 mmol/L (3.6-5.0)
[2020-05-06 14:05] LABS: ACETAMINOPHEN < 10 ug/mL (10-30); ALCOHOL < 10 mg/dL (NONE DETECTED); SALICYLATE < 1.0 mg/dL (2.0-20.0)
[2020-05-06 15:00] VITALS: BP 111/69
--- NOTE | 2020-05-06 20:03 | PSYCHOLOGICAL NOTE ---
Psych Note - Psych Note Date seen by psych provider: 05/06/20 Time seen by psych provider: 13:55 Psych Note: Reason for Consult: suicidal ideation Consent permissions: Marlin He, mother [id number] Patient is a 24 year old female who was admitted to the ED via POV with her mother. She reported coming for passive suicidal ideations. At time of assessment, she denies suicidal ideation, plan, and intent. She reports she used to cut self as a teen and last cut last week. Patient has small, superficial cuts on her ankles. Patient and her boyfriend (father of her 4 year old son) broke up 2 months ago and she recently lost her best friend. Her best friend stopped talking to her due to rumors and patient is having a hard time dealing with it. Patient denies suicide attempts in the past and psychiatric hospitalizations. Patient lives at home with her 4 year old son and her mother. She continues to deny suicidal ideation, plan, and intent. Collateral: Mother, Marlin, reports patient spent all last week in her bedroom, in isolation. Mother reports she was not tending to her son and her sister was helping take care of him. Mother is concerned about her isolating. Patient was alert and oriented to self, person, place, time and situation. Mood was sad with congruent affect. She denies current suicidal and homicidal ideation, plan, and intent. Patient did not appear to be responding to internal stimuli as evidenced by fair eye contact and answering questions appropriately when addressed. Thought processes are linear and organized. Conversational speech was within normal limits for rate, tone and prosody. Intellectual abilities are estimated to be average. Insight, judgment and impulse control were fair as evidenced by coming to the ED when passive SI arise. Patient engages appropriately. She demonstrates future forward goal oriented thinking as she talks about going to therapy next week. Clinical Presentation: passive suicidal ideations, denies plan and intent IVC Criteria per [place] GS 122C Dangerous to others Within the relevant past the individual No has inflicted or attempted to inflict or threatened to inflict serious bodily harm on another AND No that there is a reasonable probability that this conduct will be repeated. OR No has acted in such a way as to create a substantial risk of serious bodily harm to another AND No that there is a reasonable probability that this conduct will be repeated. OR No has engaged in extreme destruction of property AND NO that there is a reasonable probability that this conduct will be repeated. Previous episodes of dangerousness to others, when applicable, may be considered when determining reasonable probability of future dangerous conduct. Clear, cogent, and convincing evidence that an individual has committed a homicide in the relevant past is prima facie evidence of dangerousness to others. Dangerous to self Within the relevant past the individual has done any of the following: acted in such a way as to show ALL of the following: No The individual would be unable without care, supervision, and the continued assistance of others not otherwise available, to exercise self- control, judgment, and discretion in the conduct of the individual's daily responsibilities and social relations or to satisfy the individual's need for nourishment, personal or medical care, long term, or self-protection and safety. AND No There is a reasonable probability of the individual suffering serious physical debilitation within the near future unless adequate treatment is given. A showing of behavior that is grossly irrational, of actions that the individual is unable to control, of behavior that is grossly inappropriate to the situation, or of other evidence of severely impaired insight and judgment shall create a prima facie inference that the individual is unable to care for himself or herself. OR Yes has attempted suicide or threatened suicide Passive SI; however denies current and denies plan and intent AND No that there is a reasonable probability of suicide unless adequate treatment is given Denies current SI, plan, and intent; no hx of attempts, is asking for help; lives with mother who agrees to be part of plan of care OR No has mutilated himself or herself or attempted to mutilate himself or herself AND No that there is a reasonable probability of serious self-mutilation unless adequate treatment is given. NOTE: Previous episodes of dangerousness to self, when applicable, may be considered when determining reasonable probability of physical debilitation, suicide, or self-mutilation. Impression\plan: Patient is cleared from psychiatric services. She does not meet criteria for IVC. Patient came to the ED with passive SI, but denies current and denies plan and intent. She recently broke up with her boyfriend and she and her best friend are not talking. She would benefit from outpatient therapy. A referral was made for her for therapy through [facility] on 05.13.2020 at 1300. Patient was recommended to start therapy to learn how to identify triggers and learn healthy coping skills. She demonstrated future forward goal oriented thinking as she talked about going to therapy and plans to follow up. Patient lives with her mother and mother agrees to be part of discharge plan of care. Dr. Jackson was consulted to care management of this patient; attending physicians in agreement with recommendations and disposition.
--- NOTE | 2020-05-07 13:30 | EKG REPORT ---
SEVERITY:- ABNORMAL ECG - SINUS ARRHYTHMIA, RATE 48-71 CONSIDER LEFT VENTRICULAR HYPERTROPHY : Confirmed by: Milagro Leroy 07-May-2020 13:29:47
== END 2020-05-06 15:03 | disposition home or self-care (01) ==
LOC: ER 12:43
DX: R45.851 Suicidal ideations (principal); F32.9 Major depressive disorder, single episode, unspecified; Z63.0 Problems in relationship with spouse or partner; Z63.8 Other specified problems related to primary support group
CPT/HCPCS: 36415; 80053; 80307; 81001; 84703; 85025; 87086; 93005; 93010; 99284